=== PATIENT | male | born 1930 | race Caucasian/White ===

== ENCOUNTER → 2018-01-12 | Outpatient (CLI) | payer OTHER ==
[~2018-01-12] MED LIST: ACET-1256 PO; ASPI81TA28 PO; ATEN-173 PO; ATOR-26 PO; CALC0.25 PO; CHOL100010 PO; CLR10 PO; DOCU100C31 PO; FLNIN NAE; FLV400 PO; FRS/40 PO; GLUC1CAP35 PO; KETO2SHA5 TOP; LVQ750 PO; OMEG10007 PO; PRT40 PO; TRAM-10 PO
--- NOTE | 2018-01-12 11:43 | DIAGNOSTIC IMAGING REPORT ---
RIGHT KNEE 4 VIEWS; LEFT KNEE 4 VIEWS CLINICAL HISTORY: Chronic bilateral knee pain. COMPARISON STUDY: Progressive the knees dated 10/06/2012. FINDINGS: AP views of both knees, crosstable lateral views of both knees, a tunnel view of both knees, and a sunrise view of both knees are obtained. The skeletal structures are osteopenic. No fracture is identified. Varus deformity is noted in both knees. Right knee: There is advanced tricompartmental degenerative joint space narrowing, greatest in the medial and patellofemoral compartments. Chondrocalcinosis is identified in the lateral compartment. There are large marginal osteophytes as well as patellar enthesophytes. Degenerative sclerosis is noted along the weightbearing surface in the medial compartment. No osteochondral defect is suggested on the tunnel view. No large joint effusion is identified. Mild soft tissue swelling is present around the knee. Surgical clips are seen in the distal thigh and there is advanced atherosclerotic calcification of the popliteal artery. Left knee: There is advanced tricompartmental degenerative joint space narrowing in the left knee, greatest in the medial and patellofemoral compartments. There is near complete loss of the medial joint space with bony sclerosis and subchondral cyst formation. No osteochondral defect is suggested on the tunnel view. There is no large joint effusion. Mild soft tissue swelling seen around the knee. Advanced atherosclerotic calcification is noted in the popliteal artery. IMPRESSION: 1. No acute bony abnormality is identified in either knee. 2. Osteopenia, varus deformity, and advanced degenerative change as detailed above. Electronically signed by: Bobby Cervantes M.D. 01/12/2018 11:41 AM Dictated Date/Time: 01/12/2018 11:37 AM
== END | disposition home or self-care (01) ==
LOC: C.RDSM 10:31
PROVIDERS: ATTEND Internal Medicine
DX: M25.561 Pain in right knee (principal); M25.562 Pain in left knee

== ENCOUNTER 2019-08-07 15:10 | Inpatient (IN) ==
--- OUTSIDE RECORDS SUMMARY | 2019-08-07 15:13 | External Medical Summary | Continuity of Care Document ---
:1930 Author Name [place] Lynn, Provider Address Unavailable Unavailable , Care Team Providers Name Role Phone Unavailable Unavailable Unavailable MIKE KENNEY Bairon Unavailable Unavailable Unavailable Unavailable Unavailable Problems Routine history and physical examination of adult (V70.0) (Z 00.00) Chronic kidney disease, stage III (moderate) (585.3) (N18.3) PAD (peripheral artery disease) (443.9) (I73.9) Hyponatremia (276.1) (E87.1) Hypertension (401.9) (I10) Vasovagal syncope (780.2) (R55) Cough (786.2) (R05) Coronary artery disease (414.00) (I25.10) Peripheral vascular disease (443.9) (I73.9) Abnormal finding on lung imaging (793.19) (R91.8) Hyperkalemia (276.7) (E87.5) Asthma (493.90) (J45.909) Acute bronchitis (466.0) (J20.9) Pulmonary Fibrosis (515) Allergies and Adverse Reactions Niaspan TBCR (Allergy) Reaction: Rash Medications Tessalon Perles 100 MG Oral Capsule; ERMA E 1-2 CAPSULES three times a day as needed for cough , M.D. Refills: 0 amLODIPine Besylate 10 MG Oral Tablet; TAKE 1/2 TABLET DAILY . , M.D. Refills: 0 Furosemide 40 MG Oral Tablet; TAKE 1 TABLET DAILY. , M.D. Refills: 0 Folic Acid 400 MCG Oral Tablet; TAKE 1 TABLET DAILY DIREC HANNAH. , M.D. Refills: 0 Vitamin D 1000 UNIT TABS; TAKE 1 TABLET DAILY. , M.D. Refills: 0 Aspirin 81 MG TABS; TAKE 1 TABLET DAILY. , M.D. Refills: 0 Atenolol 25 MG Oral Tablet; TAKE 1 TABLET DAILY. , M.D. Refills: 0 Lipitor 40 MG Oral Tablet; TAKE 2 TABLET Daily , M.D. Refills: 0 Vitamin B Complex TABS , M.D. Refills: 0 Procedures History of CABG Status: Completed History of Carotid Thromboendarterectomy Status: Completed History of Cath Placement Of Stent 1 Sta tus: Completed Immunizations Immunizations not documented Family History Unknown Family Member Family history of Diabetes Mellitus (V18.0) Status: Active Comments: Family History Family history of Hypertension (V17.49) Status: Active Comments: Family History Family history of Pure Hypercholesterolemia Status: Active Comments: Family History Family history of Stroke Syndrome (V17.1) Status: Active Comments: Family History Family history of Prostate Cancer (V16.42) Status: Active Comments: Family History Social History - Smoking Status Never smoker Plan of Treatment Planned Observations Planned Goals not documented Results No Known Results Results not documented
[2019-08-07] MEDS ORDERED: SODIUM CHLORIDE 0.9% 1000ML 1,000 ML IV SCH (15:30)
[2019-08-07] MEDS ORDERED: PIPERACILL/TAZOBAC CONSULT ACTIVE PRN ×2 (15:49→20:15)
[2019-08-07] MEDS ORDERED: SODIUM CHLORIDE 0.9% 1000ML 1,000 ML IV ONE (15:49)
[2019-08-07] MEDS ORDERED: VANCOMYCIN CONSULT ACTIVE PRN (15:49)
[2019-08-07] MEDS ORDERED: VANCOMYCIN HCL 1,750 MG in SODIUM CHLORIDE 0.9% 500 ML IV ONE (15:49)
[2019-08-07] MEDS ORDERED: PIPERACILLIN/TAZOBACTAM 4.5 GM/120 ML BAG IV ONE (15:49)
[2019-08-07 15:54] LABS: Hematocrit (blood only) 32.7 % (42-52); Hemoglobin 10.6 g/dL (14.0-18.0); Immature Granulocytes # (auto) 0.07 K/uL (0.00-0.02); Immature Granulocytes % (auto) 0.6 %; Lymphocytes # (auto) 1.27 K/uL (1.2-3.4); Lymphocytes % (auto) 10.8 %; Mean Corpuscular Hemoglobin 31.3 pg (25-34); Mean Corpuscular Hgb Conc 32.4 g/dL (32-36); Mean Corpuscular Volume 96.5 fL (80-100); Mean Platelet Volume 10.1 fL (7.4-10.4); Monocytes # (auto) 0.76 K/uL (0.11-0.59); Monocytes % (auto) 6.4 %; Neutrophils % (auto) 82.2 %; Platelet Count 208 K/uL (130-400); Red Blood Count 3.39 M/uL (4.7-6.1)
[2019-08-07 16:11] LABS: Albumin Level 2.5 gm/dl (3.4-5.0); BUN Creatinine Ratio 24.4 (10-20); Calcium 8.1 mg/dl (8.5-10.1); Creatinine Clr Calc Pharmacy 18.1 ml/min; Est GFR (African American) 22.5; Est GFR (Non-African American) 19.4; Magnesium 2.6 mg/dl (1.8-2.4); Potassium 4.3 mmol/L (3.5-5.1)
--- NOTE | 2019-08-07 16:26 | CT Scan Report ---
HEAD CT NONCONTRAST CT DOSE: 1722.58 mGy.cm HISTORY: fall TECHNIQUE: Multiaxial CT images of the head were performed without the use of intravenous contrast. A utomated exposure control was utilized for this study. A dose lowering technique was utilized adheri ng to the principles of ALARA. Comparison: None. Findings: Fluid level within the right maxillary sinus. Mild mucosal thickening within the ethmoid ai r cells. The mastoid air cells are clear. The calvarium and skull base are intact. There is no mass, hematoma, midline shift, acute infarct. White matter hypodensity is nonspecific but suggestive of tatyana rovascular ischemic change. The ventricles and sulci demonstrate mild age-related involutional change s. 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 Impression: No acute intracranial abnormality. Atrophy and microvascular ischemic changes. Acute right maxillary sinusitis. Electronically signed by: Nemesio Huang M.D. 08/07/2019 4:25 PM
[2019-08-07 16:35] LABS: Albumin Globulin Ratio 0.9 (0.9-2); Bilirubin,Total 0.7 mg/dl (0.2-1); Globulin 2.7 gm/dl (2.5-4.0); Thyroid Stimulating Hormone 3.73 uIu/ml (0.300-4.500); Total Protein 5.2 gm/dl (6.4-8.2); Troponin I 0.104 ng/ml (0-0.045)
--- NOTE | 2019-08-07 16:40 | CT Scan Report ---
ABDOMEN AND PELVIS CT WITHOUT CONTRAST CT DOSE: HISTORY: Generalized abd pain, sepsis TECHNIQUE: Multiaxial CT images of the abdomen and pelvis were performed without contrast. A dose lo wering technique was utilized adhering to the principles of ALARA. COMPARISON STUDY: Renal ultrasound 05/23/2009. FINDINGS: Poststernotomy changes. Bibasilar linear densities favor subsegmental atelectasis. No pneum operitoneum. No pneumatosis. No suspicious lytic are blastic osseous lesions. The unenhanced gallblad jerrod, spleen, adrenal glands, and pancreas are unremarkable. Bilateral renal hypodense lesions are inc ompletely characterized on this noncontrast study but favor cysts. No hydronephrosis. Calcified plaqu e within the normal caliber abdominal aorta. No retroperitoneal lymphadenopathy. A few calcified gran ulomas within the right hepatic lobe. The bladder is unremarkable. Suboptimal evaluation for bowel pa thology due to the lack of intravenous and oral contrast. However, there is no definite bowel wall th ickening or obstruction. A few colonic diverticula. No evidence for diverticulitis. Normal appendix. There is a left rectus sheath hematoma extending along the entire length of the left rectus sheath an d measuring up to 8.2 x 3.8 cm in thickness. There is also small amount of extraperitoneal hemorrhage within the lower anterior abdomen. Left subcutaneous edema is noted. IMPRESSION: 1. A large left rectus sheath hematoma as described above. 2. There is also small amount of hemorrhage extending into the extraperitoneal space within the lower anterior abdomen. 3. Additional findings as described above. Electronically signed by: Nemesio Huang M.D. 08/07/2019 4:38 PM
--- NOTE | 2019-08-07 16:58 | History & Physical Report ---
Date of Service August 07, 2019 Assessment & Plan (1) Rectus sheath hematoma: Patient status post 2 falls earlier today at home Patient also with increased cough over the last week secondary to bronchitis Not on anticoagulation or antiplatelet agents at home with the exception of aspirin 81 mg p.o. daily Hemoglobin is currently stable above 10 We will check repeat hemoglobin and hematocrit every 6 hours Type and cross for 2 units of packed red blood cells but hold Control cough with Tessalon Perles 100 mg scheduled every 8 hours (2) Bronchitis: recently admitted with community-acquired pneumonia treated successfully with Levaquin Patient does not have any infiltrate or consolidation on chest x-ray or at the bases of his CT abdomen pelvis We will treat with Zosyn for now * We will also add steroids * Scheduled bronchodilators * Follow SaO2 to maintain above 90 Follow serial labs Currently oxygenating well on room air Repeat chest x-ray in the morning History of aspiration per patient's Will get a swallow study tomorrow with speech-language pathology. Clear liquid diet tonight (3) Elevated troponin: This may be from cough No EKG changes Due to patient's extensive CAD history, will ask cardiology to see and evaluate Check serial enzymes Repeat EKG in the morning Echocardiogram not ordered at this time. Will defer to cardiology No reports of chest pain from patient (4) Acute renal failure superimposed on chronic kidney disease: Patient with stage IV chronic kidney disease * Baseline creatinine 2.0-2.1 * Current creatinine 2.78 Will gently hydrate with normal saline solution at 75 mL/h Check serial labs in the morning Avoid renally toxic antibiotics and other medications Follow urine output (5) ASCVD (arteriosclerotic cardiovascular disease): History of four-vessel CABG in the past Patient then underwent PCI with drug-eluting stent to the circumflex Patient then underwent a second PCI at a later date with drug-eluting stent to the RCA Patient continues on beta-siria, atorvastatin, and aspirin No chest pain or EKG changes this admission Cardiology consulted (6) Sinusitis: Incidental finding on CT head secondary to fall Patient currently being treated with Zosyn Continue to follow (7) DVT prophylaxis: SCDs No chemical prophylaxis at this time secondary to rectus sheath hematoma Please see Dr. Castillo's addendum for further recommendations. History of Present Illness Attending: Dr. Castillo This is an 89-year-old male with a history of CAD status post CABG x4 and PCI with drug-eluting stents to the RCA and the circumflex on 2 separate procedures. Also with hyperlipidemia, hypertension, chronic kidney disease with a baseline creatinine of 2-2.1. Patient presented to the weekend clinic last week and was seen on Thursday and en ceftriaxone IM. He then reported again on Thursday for worsening shortness of breath and cough and was given an additional injection of ceftriaxone IM and discharged on Cefzil for bronchitis versus pneumonia. The patient's was an inpatient for a week here at the hospital for pneumonia and was successfully treated with Levaquin. The patient is reside with her daughter Rylee Albarado. Patient is extremely hard of hearing so most of the history is provided by the daughter. The daughter reports that he has had a progressive cough throughout the week. Initially when the presented to the outpatient clinic his SaO2 was 90%. After treatment, the patient began to improve with his SaO2 which went as high as 94 at home. However, he continued to have increased cough with yellow/green spu xander. The patient never had any chest pain or tightness. He did have some vomiting associated with increased sputum which he is unable to clear. On Thursday he had severe diarrhea. That then improved on and Thursday to be scant amounts of diarrhea. He then developed severe diarrhea again yesterday which was described by the daughter as "a blowout". This morning, the patient was extremely weak and went out to his chair and when he was getting in the chair he fell. The family reports they were able to get him into the chair but then he tried to get out himself and fell again. Primary Care Provider: July Collazo MD Allergies Allergy/AdvReac Type Severity Reaction Status Date / Time niacin Allergy Unknown UNKNOWN Verified 08/07/19 16:55 Home Medications Home Medications Medication Instructions Recorded Confirmed Type acetaminophen [Tylenol Extra 500 mg PO BIDM PRN 08/07/19 08/07/19 History Strength] allopurinol [Zyloprim] 300 mg PO QAM 08/07/19 08/07/19 History aspirin 81 mg PO QAM 08/07/19 08/07/19 History atorvastatin [Lipitor] 80 mg PO QAM 08/07/19 08/07/19 History benzonatate [Tessalon Perles] 100 mg PO TID PRN 08/07/19 08/07/19 History budesonide [Pulmicort] 0.5 mg INHALATION BID PRN 08/07/19 08/07/19 History cefprozil 250 mg PO Q12H 08/07/19 08/07/19 History clobetasol [Cormax] 1 applic TOPICAL UD 08/07/19 08/07/19 History escitalopram oxalate [Lexapro] 5 mg PO QAM 08/07/19 08/07/19 History fluticasone propionate 2 spray INTRANASAL DAILY 08/07/19 08/07/19 History folic acid 400 mcg PO DAILY 08/07/19 08/07/19 History furosemide [Lasix] 20 mg PO QAM 08/07/19 08/07/19 History levalbuterol HCl [Xopenex] 1.25 mg INHALATION Q4H PRN 08/07/19 08/07/19 History loratadine [Claritin] 10 mg PO DAILY 08/07/19 08/07/19 History metoprolol succinate [Toprol XL] 50 mg PO QAM 08/07/19 08/07/19 History pantoprazole [Protonix] 40 mg PO BID 08/07/19 08/07/19 History prednisone 5 mg PO QAM 08/07/19 08/07/19 History prednisone See Rx Instructions .ROUTE .COMPLEX 08/07/19 08/07/19 History ranitidine HCl [Zantac] 150 mg PO BID 08/07/19 08/07/19 History terazosin 2 mg PO QAM 08/07/19 08/07/19 History tramadol [Ultram] 50 mg PO TID PRN 08/07/19 08/07/19 History vitamin B complex [B-Complex] 1 tab PO DAILY 08/07/19 08/07/19 History Past Med/Surg History Medical History Sepsis (Acute) Aspiration pneumonia (Chronic) CAD, multiple vessel Chronic kidney disease, stage IV (severe) Dyslipidemia GERD without esophagitis History of melanoma in situ Hyperparathyroidism, secondary renal Hypertension Surgical History H/O percutaneous transluminal coronary angioplasty History of appendectomy S/P CABG x 4 Family History Mother , Age 74 Diabetes Heart disease Stroke Father , Age 72 Prostate cancer Sister Arthritis of both knees Arthritis of both feet Heart disease Sister No problems noted. Sister No problems noted. Brother No problems noted. Social History Preferred Language: Arabic Communication Ability: Effective Beliefs That Will Affect Care: Druze Druze Beliefs: BAPTISM Current Living Situation: Family Current Living Situation Comment: LIVES WITH DAUGHTERS Other Information That Helps Us Care for You: No Feels Safe at Home: Yes Safety Concerns: Feels Safe At This Time Smoking Status: Never smoker Hx Alcohol Use: Yes Alcohol type: beer Hx Substance Use: No Review of Systems Review of Systems: All systems reviewed & are unremarkable except as noted in HPI & below Physical Exam Physical Exam: GENERAL : No acute distress. Hard of hearing EYES: No icterus, gaze conjugate. Pupils equal round and reactive to light NOSE: No evidence of epistaxis. MOUTH: No lesions or candidiasis. Mucosa moist. Tongue midline. NECK: Supple. No JVD. No carotid bruits LUNGS: Bronchospasm on expiratory phase more pronounced to anterior zones. Decreased breath sounds at the left base. No specific rales or rhonchi appreciated HEART: Regular, rate controlled. No appreciation of murmurs gallops or rubs ABDOMEN: Soft, NT, ND, BS Present EXTREMITIES: No LE edema, pedal pulses intact. NEURO: A&OX3. No focal deficits on examination Results & Data Vital Signs (Past 12 Hours) Vital Signs Temp Pulse Resp BP Pulse Ox 08/07/19 16:31 67 17 97 08/07/19 16:30 68 15 139/64 96 08/07/19 16:18 72 23 123/63 95 08/07/19 15:30 64 14 93 08/07/19 15:26 71 13 94 08/07/19 15:24 96 08/07/19 15:17 36.8 C 78 20 100/63 96 08/07/19 15:13 74 17 100/63 95 Laboratory Results 08/07/19 15:44 08/07/19 15:44 Diagnostic Findings ABDOMEN AND PELVIS CT WITHOUT CONTRAST CT DOSE: HISTORY: Generalized abd pain, sepsis TECHNIQUE: Multiaxial CT images of the abdomen and pelvis were performed without contrast. A dose lowering technique was utilized adhering to the principles of ALARA. COMPARISON STUDY: Renal ultrasound 05/23/2009. FINDINGS: Poststernotomy changes. Bibasilar linear densities favor subsegmental atelectasis. No pneumoperitoneum. No pneumatosis. No suspicious lytic are blastic osseous lesions. The unenhanced gallbladder, spleen, adrenal glands, and pancreas are unremarkable. Bilateral renal hypodense lesions are incompletely ch aracterized on this noncontrast study but favor cysts. No hydronephrosis. Calcified plaque within the normal caliber abdominal aorta. No retroperitoneal lymphadenopathy. A few calcified granulomas within the right hepatic lobe. The bladder is unremarkable. Suboptimal evaluation for bowel pathology due to the lack of intravenous and oral contrast. However, there is no definite bowel wall thickening or obstruction. A few colonic diverticula. No evidence for diverticulitis. Normal appendix. There is a left rectus sheath hematoma extending along the entire length of the left rectus sheath and measuring up to 8.2 x 3.8 cm in thickness. There is also small amount of extraperitoneal he morrhage within the lower anterior abdomen. Left subcutaneous edema is noted. IMPRESSION: 1. A large left rectus sheath hematoma as described above. 2. There is also small amount of hemorrhage extending into the extraperitoneal space within the lower anterior abdomen. 3. Additional findings as described above. Electronically signed by: Nemesio Huang M.D. 08/07/2019 4:[address]AST CT DOSE: 1722.58 mGy.cm HISTORY: fall TECHNIQUE: Multiaxial CT images of the head were performed without the use of intravenous contrast. Automated exposure control was utilized for this study. A dose lowering technique was utilized adhering to the principles of ALARA. Comparison: None. Findings: Fluid level within the right maxillary sinus. Mild mucosal thickening within the ethmoid air cells. The mastoid air cells are clear. The calvarium and skull base are intact. There is no mass, hematoma, midline shift, acute infarct. White matter hypodensity is nonspecific but suggestive of microvascular ischemic change. The ventricles and sulci demonstrate mild age-related involutional changes. 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 Impression: No acute intracranial abnormality. Atrophy and microvascular ischemic changes. Acute right maxillary sinusitis. Electronically signed by: Nemesio Huang M.D. 08/07/2019 4:25 PM Code Status & VTE Plan Code Status DNR/DNI VTE Prophylaxis Plan VTE Prophylaxis will be ordered: Yes Supervising Physician Co-Signing Physician Notes HISTORY: Record reviewed. Patient interviewed and examined. Care coordinated with Bobby Sher PA-C. Please refer to his documentation for patient's history. Briefly, 89-year-old male with history of ischemic heart disease (status post CABG and PCI's with drug-eluting stents) and other problems. Seen in clinic for a congested cough about 1 week prior to admission. Treated with IV ceftriaxone on 2 consecutive days and given prescription for cefprozil to take orally. Despite those efforts, his cough has worsened. He is tired and more somnolent than usual. Has suspected history of dementia, but more confused than baseline. Several episodes of diarrhea without gross blood. No fever at home. EXAM: General- no distress ENT- hard of hearing Lungs- coughing, scattered rhonchi, diffuse wheezing; no respiratory distress Cardiovascular- RRR; no murmur or gallop appreciated; no JVD; no pretibial edema Abdomen- + bowel sounds, soft, mild tenderness left anterior abdominal wall Extremities- no cyanosis; no calf tenderness Neuro- somewhat somnolent, oriented to person, hospital (but not correct city), the week and year (but not exact date); unable to state the president's name; n ot interested in naming the months of the year backwards; +/- masked facies; mild cogwheel rigidity of upper extremities Skin- warm & dry DATA: Hemoglobin 10.6, white count 11,800, platelet count 208,000. PT 10.9, INR 1.1, PTT 22.3. Sodium 140, potassium 4.3, chloride 105, CO2 29, BUN 68, creatinine 2.78, glucose 186, calcium 8.1, magnesium 2.6. Total bilirubin 0.7, AST 40, ALT 28, alkaline phosphatase 57. Troponin I = 0.104. Serum lactate 1.68. TSH = 3.73. Other lab studies as noted. Chest x-ray reviewed reviewed by the undersigned and formally interpreted by Radiology. Postsurgical changes, bibasilar densities consistent with atelectasis, elevated left hemidiaphragm. CT of head showed atrophy, small vessel ischemic changes, acute right maxillary sinusitis. CT of abdomen pelvis demonstrated left rectus sheath hematoma measuring 8 x 4 cm. Bibasilar lung densities consistent with atelectasis noted. EKG performed at 1515 reviewed and demonstrated normal sinus rhythm at 70/ minute, left axis deviation, intraventricular conduction delay, no acute ST or T wave abnormalities. ASSESSMENT AND PLAN: Persistent cough for about 1 week despite outpatient therapy with ceftriaxone and cefprozil. recently treated for pneumonia. Chest x-ray shows bibasilar atelectasis, but no apparent infiltrates. CT of head demonstrates acute right maxillary sinusitis. Appears to have sinobronchitis. Treat with intravenous piperacillin/tazobactam, steroids, bronchodilators. Family reports that patient appears to aspirate when he eats or drinks. Clear liquid diet. Aspiration precautions. TELECASTING TECHNICIAN consult for bedside swallowing evaluation. History of coronary artery disease, status post CABG and PCI with drug-eluting stents. No apparent anginal symptoms. Serum troponin slightly elevated, probably nonspecific elevation versus demand ischemia. No acute EKG changes. Continue aspirin with caution in light of rectus sheath hematoma. Continue metoprolol and statin. CT of abdomen demonstrates left rectus sheath hematoma. Suspect that rectus sheath hematoma secondary to severe coughing from si nobronchitis. Patient is on aspirin, but no other antiplatelet drugs and no anticoagulants. Coagulation testing and platelet count normal. Probably best to continue low-dose aspirin if possible in light of coronary disease and drug-eluting stents. Hemoglobin 10.6. Hemodynamically stable. Monitor H&H. Cough suppressants. Usually no need for surgical or interventional radiology intervention unless hematoma worsens and patient becomes hemodynamically unstable. CKD with elevated creatinine. Monitor. History of cognitive decline over past several months. Family is concerned. Patient has some parkinsonian symptoms-masked facies, tremor, cogwheel rigidity, shuffling gait. Outpatient evaluation for dementia and possibility of Parkinson's disease recommended. Patient has had several episodes of diarrhea. Check stools for C. difficile. Family is concerned about cognitive and functional decline. Will request PT/OT evaluations and Case Management consultation. Please refer to YULISA Sher's documentation for discussion of other issues. (1) Sinusitis Chronicity: unspecified Sinusitis location: unspecified location Qualified Code(s): J32.9 - Chronic sinusitis, unspecified (2) Rectus sheath hematoma Encounter type: initial encounter Qualified Code(s): S30.1XXA - Contusion of abdominal wall, initial encounter
--- NOTE | 2019-08-07 17:02 | XRay Report ---
XR chest 1V portable HISTORY: weakness COMPARISON: Chest 10/15/2016. FINDINGS: There are low lung volumes. Poststernotomy changes. The heart is stable in size. Bibasilar linear densities favor subsegmental atelectasis. No pleural effusions. No pneumothorax. No evidence f or pulmonary edema. IMPRESSION: No significant change compared to the prior study. No acute process. Low lung volumes with bibasilar subsegmental atelectasis persists. Electronically signed by: Nemesio Huang M.D. 08/07/2019 5:01 PM
[2019-08-07 17:10] LABS: INR 1.1 (0.9-1.1); Partial Thromboplastin Ratio 0.8; Partial Thromboplastin Time 22.3 Seconds (21.0-31.0); Prothrombin Time 10.9 Seconds (9.0-12.0)
[2019-08-07 18:24] LABS: Influenza A virus by PCR Neg for Influ A (Neg); Influenza B virus by PCR Neg for Influ B (Neg)
[2019-08-07] MEDS ORDERED: LEVALBUTEROL 1.25MG/0.5ML NEB INH SCH (20:15)
[2019-08-07] MEDS ORDERED: ONDANSETRON INJ 2 MG/ML 2 ML VIAL IV PRN (20:15)
[2019-08-07] MEDS ORDERED: LEVALBUTEROL HCL 1.25 MG/3 ML NEB INH PRN (20:15)
[2019-08-07] MEDS ORDERED: XOPENEX/ATROVENT 1.25mg/0.5MG NEB COMBO NEB SCH (20:15)
[2019-08-07] MEDS ORDERED: SODIUM CHLORIDE 0.9% 250 ML IV PRN (20:15)
[2019-08-07] MEDS ORDERED: ACETAMINOPHEN 325 MG TAB PO PRN (20:15)
[2019-08-07] MEDS ORDERED: BUDESONIDE 0.5 MG/2 ML VIAL (PULMICORT) INH PRN (20:15)
[2019-08-07] MEDS ORDERED: ALUMINUM/MAGNESIUM SUSP 30 ML UDC PO PRN (20:15)
[2019-08-07 21:16] LABS: Appearance Urine Clear (Clear); Bilirubin Urine Negative (Negative); Blood Urine Negative (Negative); Color Urine Yellow; Glucose Urine UA Negative (Negative); Ketones Urine Negative (Negative); Leukocyte Esterase Urine Negative (Negative); Nitrite Urine Negative (Negative); Protein Urine Trace (Negative); Urobilinogen Urine Negative (Negative)
[2019-08-07 21:26] LABS: Bacteria Urine Negative (Negative); Epithelial Cell Urine 0-5 /lpf (0-5); RBC Urine 0-4 /hpf (0-4); WBC Urine 0-5 /hpf (0-5)
[2019-08-07] MEDS: SODIUM CHLORIDE 0.9% 1000ML 1,000 ML IV SCH (21:34)
[2019-08-07] MEDS: BENZONATATE 100 MG CAPSULE PO SCH (21:35)
[2019-08-07] MEDS: PANTOprazole 40 MG TAB PO SCH (21:38)
[2019-08-07] MEDS ORDERED: PIPERACILLIN/TAZOBACTAM 3.375 GM in DEXTROSE 5% 100 ML IV SCH (22:00)
[2019-08-07 22:09] LABS: Hematocrit (blood only) 30.7 % (42-52); Hemoglobin 10.2 g/dL (14.0-18.0)
--- NOTE | 2019-08-07 22:27 | Emergency Department Note ---
Entered by Yennifer Rivera acting as a scribe for Eran Dang MD ED Provider Note CHIEF COMPLAINT: Diarrhea. HISTORY OF PRESENT ILLNESS: The patient is a 89 year old male who presents to the Emergency Room with complaints of persistent diarrhea. The patients family reports that the patient was diagnosed with bronchitis on Thursday and was prescribed Rocephin. They report that he followed up the next day and was prescribed Cefprozil and Prednisone. They state that the patient has been weak, fatigued, and has been experiencing diarrhea for the past 3 days. They state that the patients cough has worsened. They note that the patient has had 5 episodes of diarrhea daily. The patient states that he has chest pain and abdominal pain. The family reports that the patient has a history of aspirated pneumonia and sepsis. They deny any history of C diff. Per EMS, the patients blood pressure was 93/50. Pt denies LOC, headache, fevers, chills, diaphoresis, visual changes, neck pain, breathing difficulties, nausea, vomiting, back pain, melena, hematochezia, urinary symptoms, numbness, weakness, lymphadenopathy, rash, or other complaints. REVIEW OF SYSTEMS: See HPI for pertinent positives and negatives. A total of ten systems were reviewed and were otherwise negative. PMHx/PSHx: Aspiration pneumonia and Sepsis. SOCIAL HISTORY: Patient lives at home. PHYSICAL EXAM: GENERAL: Awake, alert, tired-appearing, in no distress HENT: Normocephalic, atraumatic. Oropharynx unremarkable. EYES: PERRL. Normal conjunctiva. Sclera non-icteric. NECK: Inspection normal. Non-tender. Supple. No nuchal rigidity. FROM. No masses. RESPIRATORY: Coarse breath sounds. Productive cough. No wheezes. No rales. Normal respiratory effort. CARDIAC: Normal rate. Normal rhythm. No murmurs. No rubs. Extremities warm and well perfused. Pulses equal. No JVD. GI: Soft, non-distended. Mild lower abdominal tenderness to palpation. No rebound or guarding. No masses. RECTAL: Deferred. MUSCULOSKELETAL: Atraumatic. Chest examination reveals no tenderness. The back is symmetrical on inspection without obvious abnormality. There is no CVA tenderness to palpation. No joint edema. LOWER EXTREMITIES: Calves are equal size bilaterally and non-tender. No edema. No discoloration. NEURO: Normal sensorium. No sensory or motor deficits noted. SKIN: No rash or jaundice noted. EMERGENCY DEPARTMENT COURSE: 1547: Past medical records reviewed. The patient was evaluated in room A11B, and a complete history and physical examination were performed. 1645: I reviewed the patient's case with Dr. Josi Potts. He will evaluate the patient for further management. MEDICAL DECISION MAKING: A11B Prior records/ancillary studies reviewed. Nursing notes reviewed and agree them. Additional history obtained from family. The patient's history was concerning for weakness, cough and diarrhea. Differential diagnosis: Etiologies such as metabolic, infection, hypo/hyperglycemia, electrolyte abnormalities, cardiac sources, intracerebral event, toxicologic, neurologic, pneumonia, bronchitis, C. difficile infection, infectious diarrhea, viral process, as well as others were entertained. Physical examination: As above. Mild right-sided abdominal tenderness. ER treatment provided: IV Lock Saline hydration Empiric IV Zosyn Empiric IV vancomycin On reassessment the patient was stable. Diagnostics interpretation by me: ECG: Negative for acute ischemic process. The labs revealed a mild leukocytosis on CBC. Chemistry panel revealed a stable but elevated creatinine at 2.7. Mild elevation of AST and glucose. The patient does have a mild anemia. His troponin is elevated at 0.104. Lactate negative. Imaging studies: Chest x-ray did not reveal any obvious acute process. CT imaging of the abdomen pelvis revealed a right-sided rectus hematoma. The patient is only on aspirin. He is not taking anticoagulation. Head CT was negative for acute intracranial process however the patient does have right-sided acute maxillary sinusitis. The patient will need to be admitted in the hospital for further management. C. difficile testing pending still. I gave my usual and customary discussion regarding this issue. Consultation: A consultation was placed with the hospitalist. The case was discussed and diagnostics were reviewed. The patient was evaluated in the ER for further treatment. IMPRESSION: Elevated troponin, sinusitis, leukocytosis, productive cough, diarrhea, rectus sheath hematoma. PLAN: Admitted. The scribe's documentation has been prepared under my direction and personally reviewed by me in its entirety. I confirm that the note above accurately reflects all work, treatment, procedures, and medical decision making performed by me. Impression & Plan Elevated troponin, Sinusitis, Leukocytosis, Productive cough, Diarrhea, Rectus sheath hematoma Past Med/Surg History Medical History Sepsis (Acute) Aspiration pneumonia (Chronic) CAD, multiple vessel Chronic kidney disease, stage IV (severe) Dyslipidemia GERD without esophagitis History of melanoma in situ Hyperparathyroidism, secondary renal Hypertension Surgical History H/O percutaneous transluminal coronary angioplasty History of appendectomy S/P CABG x 4 Family History Mother , Age 74 Diabetes Heart disease Stroke Father , Age 72 Prostate cancer Sister Arthritis of both knees Arthritis of both feet Heart disease Sister No problems noted. Sister No problems noted. Brother No problems noted. Social History Preferred Language: [place] Communication Ability: Effective Beliefs That Will Affect Care: Synagogue Synagogue Beliefs: PENTECOSTAL Current Living Situation: Family Current Living Situation Comment: LIVES WITH DAUGHTERS Other Information That Helps Us Care for You: No Feels Safe at Home: Yes Safety Concerns: Feels Safe At This Time Smoking Status: Never smoker Hx Alcohol Use: Yes Alcohol type: beer Hx Substance Use: No Results & Data Vital Signs Vital Signs - 24 hr 08/07/19 15:13 08/07/19 15:17 08/07/19 15:24 Temperature 36.8 C Temperature Source Oral Sepsis Recent Fever Within 48 Hours No Sepsis New/Unexplained Change in Mental Status No Sepsis Action Taken by Nursing No Action Required Pulse Rate 74 78 Pulse Rate from SpO2 Sensor 74 Respiratory Rate 17 20 Respiratory Effort / Characteristics Non-Labored Spontaneous Respiratory Depth Normal Respiratory Pattern Regular Blood Pressure 100/63 100/63 Blood Pressure Mean 75 75 Blood Pressure Position Sitting Pulse Oximetry 95 96 96 Oxygen Delivery Method Room Air Room Air 08/07/19 15:26 08/07/19 15:30 08/07/19 16:18 Temperature Temperature Source Sepsis Recent Fever Within 48 Hours Sepsis New/Unexplained Change in Mental Status Sepsis Action Taken by Nursing Pulse Rate 71 64 72 Pulse Rate from SpO2 Sensor 70 67 71 Respiratory Rate 13 14 23 Respiratory Effort / Characteristics Respiratory Depth Respiratory Pattern Blood Pressure 123/63 Blood Pressure Mean 83 Blood Pressure Position Pulse Oximetry 94 93 95 Oxygen Delivery Method 08/07/19 16:30 08/07/19 16:31 08/07/19 17:00 Temperature Temperature Source Sepsis Recent Fever Within 48 Hours Sepsis New/Unexplained Change in Mental Status Sepsis Action Taken by Nursing Pulse Rate 68 67 66 Pulse Rate from SpO2 Sensor 68 67 66 Respiratory Rate 15 17 16 Respiratory Effort / Characteristics Respiratory Depth Respiratory Pattern Blood Pressure 139/64 128/62 Blood Pressure Mean 89 84 Blood Pressure Position Pulse Oximetry 96 97 96 Oxygen Delivery Method 08/07/19 17:30 08/07/19 18:00 08/07/19 18:01 Temperature Temperature Source Sepsis Recent Fever Within 48 Hours Sepsis New/Unexplained Change in Mental Status Sepsis Action Taken by Nursing Pulse Rate 64 58 L 64 Pulse Rate from SpO2 Sensor 64 67 Respiratory Rate 16 17 16 Respiratory Effort / Characteristics Respiratory Depth Respiratory Pattern Blood Pressure 111/58 L 95/59 L Blood Pressure Mean 75 71 Blood Pressure Position Pulse Oximetry 97 84 L Oxygen Delivery Method 08/07/19 18:04 08/07/19 18:06 08/07/19 18:30 Temperature Temperature Source Sepsis Recent Fever Within 48 Hours Sepsis New/Unexplained Change in Mental Status Sepsis Action Taken by Nursing Pulse Rate 60 69 66 Pulse Rate from SpO2 Sensor 60 70 66 Respiratory Rate 21 22 16 Respiratory Effort / Characteristics Respiratory Depth Respiratory Pattern Blood Pressure 149/86 H 121/66 130/76 Blood Pressure Mean 107 84 94 Blood Pressure Position Pulse Oximetry 100 97 95 Oxygen Delivery Method Home Medications Current Medication List: was personally reviewed by me Laboratory Data Attestation: I reviewed the patient's lab results. Result diagrams: 08/07/19 21:59 08/07/19 15:44 Lab Results 08/07/19 08/07/19 08/07/19 Range/Units 15:14 15:44 15:44 WBC 11.80 H (4.8-10.8) K/uL RBC 3.39 L (4.7-6.1) M/uL Hgb 10.6 L (14.0-18.0) g/dL Hct 32.7 L (42-52) % MCV 96.5 (80-100) fL MCH 31.3 (25-34) pg MCHC 32.4 (32-36) g/dL RDW Std Deviation 56.0 H (36.4-46.3) fL RDW Coeff of Ted 16.0 H (11.5-14.5) % Plt Count 208 (130-400) K/uL MPV 10.1 (7.4-10.4) fL Immature Gran % (Auto) 0.6 % Neut % (Auto) 82.2 % Lymph % (Auto) 10.8 % [place] % (Auto) 6.4 % Eos % (Auto) 0.0 % Baso % (Auto) 0.0 % Immature Gran # (Auto) 0.07 H (0.00-0.02) K/uL Neut # (Auto) 9.70 H (1.4-6.5) K/uL Lymph # (Auto) 1.27 (1.2-3.4) K/uL [place] # (Auto) 0.76 H (0.11-0.59) K/uL Eos # (Auto) 0.00 (0-0.5) K/uL Baso # (Auto) 0.00 (0-0.2) K/uL PT 10.9 (9.0-12.0) Seconds INR 1.1 (0.9-1.1) APTT 22.3 (21.0-31.0) Seconds PTT Ratio 0.8 Sodium 140 (136-145) mmol/L Potassium 4.3 (3.5-5.1) mmol/L Chloride 105 (98-107) mmol/L Carbon Dioxide 29 (21-32) mmol/L Anion Gap 5.0 (3-11) BUN 68 H (7-18) mg/dl Creatinine 2.78 H (0.6-1.4) mg/dl Est Cr Clr Drug Dosing 18.1 ml/min Est GFR ( Amer) 22.5 Est GFR (Non-Af Amer) 19.4 BUN/Creatinine Ratio 24.4 H (10-20) Glucose 186 H (70-99) mg/dl POC Lactic Acid Curtis (0.90-1.70) mmol/L Calcium 8.1 L (8.5-10.1) mg/dl Magnesium 2.6 H (1.8-2.4) mg/dl Total Bilirubin 0.7 (0.2-1) mg/dl AST 40 H (15-37) U/L ALT 28 (12-78) U/L Alkaline Phosphatase 57 (45-117) U/L Troponin I 0.104 H* (0-0.045) ng/ml Total Protein 5.2 L (6.4-8.2) gm/dl Albumin 2.5 L (3.4-5.0) gm/dl Globulin 2.7 (2.5-4.0) gm/dl Albumin/Globulin Ratio 0.9 (0.9-2) TSH 3.730 (0.300-4.500) uIu/ml Influenza Type A (PCR) (Neg) Influenza Type B (PCR) (Neg) 08/07/19 08/07/19 Range/Units 15:50 17:45 WBC (4.8-10.8) K/uL RBC (4.7-6.1) M/uL Hgb (14.0-18.0) g/dL Hct (42-52) % MCV (80-100) fL MCH (25-34) pg MCHC (32-36) g/dL RDW Std Deviation (36.4-46.3) fL RDW Coeff of Ted (11.5-14.5) % Plt Count (130-400) K/uL MPV (7.4-10.4) fL Immature Gran % (Auto) % Neut % (Auto) % Lymph % (Auto) % [place] % (Auto) % Eos % (Auto) % Baso % (Auto) % Immature Gran # (Auto) (0.00-0.02) K/uL Neut # (Auto) (1.4-6.5) K/uL Lymph # (Auto) (1.2-3.4) K/uL [place] # (Auto) (0.11-0.59) K/uL Eos # (Auto) (0-0.5) K/uL Baso # (Auto) (0-0.2) K/uL PT (9.0-12.0) Seconds INR (0.9-1.1) APTT (21.0-31.0) Seconds PTT Ratio Sodium (136-145) mmol/L Potassium (3.5-5.1) mmol/L Chloride (98-107) mmol/L Carbon Dioxide (21-32) mmol/L Anion Gap (3-11) BUN (7-18) mg/dl Creatinine (0.6-1.4) mg/dl Est Cr Clr Drug Dosing ml/min Est GFR ( Amer) Est GFR (Non-Af Amer) BUN/Creatinine Ratio (10-20) Glucose (70-99) mg/dl POC Lactic Acid Curtis 1.68 (0.90-1.70) mmol/L Calcium (8.5-10.1) mg/dl Magnesium (1.8-2.4) mg/dl Total Bilirubin (0.2-1) mg/dl AST (15-37) U/L ALT (12-78) U/L Alkaline Phosphatase (45-117) U/L Troponin I (0-0.045) ng/ml Total Protein (6.4-8.2) gm/dl Albumin (3.4-5.0) gm/dl Globulin (2.5-4.0) gm/dl Albumin/Globulin Ratio (0.9-2) TSH (0.300-4.500) uIu/ml Influenza Type A (PCR) Neg for Influ A (Neg) Influenza Type B (PCR) Neg for Influ B (Neg) Administered Medications Benzonatate (Tessalon Perle) 100 mg PO TID HOMA Stop: 09/06/19 20:59 Last Admin: 08/07/19 21:35 Dose: 100 mg Documented by: [id number] Sodium Chloride (Nss 1000ml) 1,000 mls @ 80 mls/hr IV .[id number] HOMA Stop: 09/06/19 20:14 Last Admin: 08/07/19 21:34 Dose: 80 mls/hr Documented by: [id number] Pantoprazole Sodium (Protonix) 40 mg PO BID HOMA Stop: 09/06/19 20:59 Last Admin: 08/07/19 21:38 Dose: 40 mg Documented by: [id number] Discontinued Medications Sodium Chloride (Nss 1000ml) 1,000 mls @ 125 mls/hr IV .Q8H HOMA Stop: 08/07/19 23:29 Last Infusion: 08/07/19 20:28 Dose: 0 mls/hr Documented by: [id number] Admin: 08/07/19 17:45 Dose: 125 mls/hr Documented by: [id number] Piperacillin Sod/Tazobactam Sod (Zosyn) 4.5 gm in 120 mls @ 240 mls/hr IV NOW ONE Stop: 08/07/19 16:18 Last Infusion: 08/07/19 18:02 Dose: 0 mls/hr Documented by: [id number] Admin: 08/07/19 16:36 Dose: 240 mls/hr Documented by: [id number] Sodium Chloride (Nss 1000ml) 1,000 mls @ 999 mls/hr IV .Q1H1M ONE Stop: 08/07/19 16:49 Last Infusion: 08/07/19 18:02 Dose: 0 mls/hr Documented by: [id number] Admin: 08/07/19 16:24 Dose: 999 mls/hr Documented by: [id number] Vancomycin HCl 1,750 mg/ (Sodium Chloride) 535 mls @ 200 mls/hr IV NOW ONE Stop: 08/07/19 18:29 Last Infusion: 08/07/19 19:08 Dose: 0 mls/hr Documented by: [id number] Admin: 08/07/19 16:23 Dose: 200 mls/hr Documented by: [id number] Imaging Data Radiologist's Impression: Radiology results as stated below per my review and the radiologist's interpretation: XR chest 1V portable HISTORY: weakness COMPARISON: Chest 10/15/2016. FINDINGS: There are low lung volumes. Poststernotomy changes. The heart is stable in size. Bibasilar linear densities favor subsegmental atelectasis. No pleural effusions. No pneumothorax. No evidence for pulmonary edema. IMPRESSION: No significant change compared to the prior study. No acute process. Low lung volumes with bibasilar subsegmental atelectasis persists. Electronically signed by: Nemesio Huang M.D. 08/07/2019 5:[address] DOSE: 1722.58 mGy.cm HISTORY: fall TECHNIQUE: Multiaxial CT images of the head were performed without the use of intravenous contrast. Automated exposure control was utilized for this study. A dose lowering technique was utilized adhering to the principles of ALARA. Comparison: None. Findings: Fluid level within the right maxillary sinus. Mild mucosal thickening within the ethmoid air cells. The mastoid air cells are clear. The calvarium and skull base are intact. There is no mass, hematoma, midline shift, acute infarct. White matter hypodensity is nonspecific but suggestive of microvascular ischemic change. The ventricles and sulci demonstrate mild age-related involutional changes. 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 Impression: No acute intracranial abnormality. Atrophy and microvascular ischemic changes. Acute right maxillary sinusitis. Electronically signed by: Nemesio Huang M.D. 08/07/2019 4:25 PM A[address]OMEN AND PELVIS CT WITHOUT CONTRAST CT DOSE: HISTORY: Generalized abd pain, sepsis TECHNIQUE: Multiaxial CT images of the abdomen and pelvis were performed without contrast. A dose lowering technique was utilized adhering to the principles of ALARA. COMPARISON STUDY: Renal ultrasound 05/23/2009. FINDINGS: Poststernotomy changes. Bibasilar linear densities favor subsegmental atelectasis. No pneumoperitoneum. No pneumatosis. No suspicious lytic are blastic osseous lesions. The unenhanced gallbladder, spleen, adrenal glands, and pancreas are unremarkable. Bilateral renal hypodense lesions are incompletely characterized on this noncontrast study but favor cysts. No hydronephrosis. Calcified plaque within the normal caliber abdominal aorta. No retroperitoneal lymphadenopathy. A few calcified granulomas within the right hepatic lobe. The bladder is unremarkable. Suboptimal evaluation for bowel pathology due to the lack of intravenous and oral contrast. However, there is no definite bowel wall thickening or obstruction. A few colonic diverticula. No evidence for diverticulitis. Normal appendix. There is a left rectus sheath hematoma extending along the entire length of the left rectus sheath and measuring up to 8.2 x 3.8 cm in thickness. There is also small amount of extraperitoneal hemorrhage within the lower anterior abdomen. Left subcutaneous edema is noted. IMPRESSION: 1. A large left rectus sheath hematoma as described above. 2. There is also small amount of hemorrhage extending into the extraperitoneal space within the lower anterior abdomen. 3. Additional findings as described above. Electronically signed by: Nemesio Huang M.D. 08/07/2019 4:38 PM ECG Data Attestation: I personally reviewed and interpreted this ECG as follows: Indication: abdominal pain Rate (beats per minute): 72 Rhythm: normal sinus Findings: + other (normal QRS); no PAC, no PVC, no ST depression, no ST elevation and no ectopy Blood Pressure Blood Pressure Findings: Normal blood pressure Blood Pressure Disposition: did not require urgent referral Discharge Plan Visit Data *Final* Discharge Date/Time: 08/07/19 19:49 Chief Complaint: Illness Stated Complaint: WEAKNESS, AB PAIN, DIARRHEA ED Provider: Eran Dang Discharge Problem: Elevated troponin, Sinusitis, Leukocytosis, Productive cough, Diarrhea, Rectus sheath hematoma Patient Disposition: Admitted As Inpatient Discharge Instructions Interventions: ED Discharge Assessment Last Done: 08/07/19 19:49 Discharge Problem: Sinusitis Qualifiers: Sinusitis location: unspecified location Chronicity: unspecified Qualified Code(s): J32.9 - Chronic sinusitis, unspecified Leukocytosis Qualifiers: Leukocytosis type: unspecified Qualified Code(s): D72.829 - Elevated white blood cell count, unspecified Diarrhea Qualifiers: Diarrhea type: unspecified type Qualified Code(s): R19.7 - Diarrhea, unspecified Rectus sheath hematoma Qualifiers: Encounter type: initial encounter Qualified Code(s): S30.1XXA - Contusion of abdominal wall, initial encounter The scribe's documentation has been prepared under my direction and personally reviewed by me in its entirety. I confirm that the note above accurately reflects all work, treatment, procedures, and medical decision making performed by me.
[2019-08-08] MEDS: PIPERACILLIN/TAZOBACTAM 3.375 GM in DEXTROSE 5% 100 ML IV SCH ×2 (00:48→11:49)
[2019-08-08] MEDS: LEVALBUTEROL 1.25MG/0.5ML NEB NEB SCH ×4 (01:16→20:06)
[2019-08-08] MEDS: IPRATROPIUM BROMIDE NEB SOLN 0.02% 2.5 ML VIAL INH SCH ×4 (01:16→20:05)
[2019-08-08 06:58] LABS: Hematocrit (blood only) 27.5 % (42-52); Hemoglobin 9.3 g/dL (14.0-18.0)
[2019-08-08] MEDS: SODIUM CHLORIDE 0.9% 1000ML 1,000 ML IV SCH ×2 (08:08→17:49)
[2019-08-08] MEDS: ASPIRIN 81 MG ECTAB PO SCH (08:11)
[2019-08-08] MEDS: TERAZOSIN HCL 1 MG CAP PO SCH (08:11)
[2019-08-08] MEDS: FOLIC ACID 400 MCG TAB PO SCH (08:11)
[2019-08-08] MEDS: VITAMIN B COMPLEX TAB PO SCH (08:11)
[2019-08-08] MEDS: FLUTICASONE PROPIONATE NA SPR 16 GM BTL NAE SCH (08:11)
[2019-08-08] MEDS: ALLOPURINOL 300 MG TAB PO SCH (08:11)
[2019-08-08] MEDS: BENZONATATE 100 MG CAPSULE PO SCH ×3 (08:12→20:53)
[2019-08-08] MEDS: PANTOprazole 40 MG TAB PO SCH ×2 (08:12→20:53)
[2019-08-08] MEDS: ESCITALOPRAM OXALATE 10 MG TAB PO SCH (08:12)
[2019-08-08] MEDS: ATORVASTATIN 40 MG TAB PO SCH (08:12)
[2019-08-08] MEDS: SODIUM CHLORIDE 0.65% NA SOLN 45 ML (OCEAN) SCH ×4 (08:13→20:54)
[2019-08-08] MEDS ORDERED: INFLUENZA VACCINE HIGH DOSE 65+ 0.5 ML SYR IM ONE (08:30)
[2019-08-08] MEDS ORDERED: INFLUENZA ADMINISTRATION CHARGE ONE (08:30)
[2019-08-08] MEDS ORDERED: METOPROLOL SUCC 50MG EXT REL TAB PO SCH (09:00)
[2019-08-08] MEDS ORDERED: FUROSEMIDE 20 MG TAB PO SCH (09:00)
[2019-08-08 09:13] LABS: BUN Creatinine Ratio 24.2 (10-20); Calcium 7.6 mg/dl (8.5-10.1); Creatinine Clr Calc Pharmacy 18.9 ml/min; Est GFR (African American) 23.4; Est GFR (Non-African American) 20.2; Magnesium 2.4 mg/dl (1.8-2.4); Potassium 4.2 mmol/L (3.5-5.1)
[2019-08-08 09:23] LABS: Folate (Folic Acid) 13.82 ng/ml (>5.38)
--- NOTE | 2019-08-08 10:36 | Cardiology Consultation ---
Date of Consultation August 08, 2019 Assessment & Plan (1) ASCVD (arteriosclerotic cardiovascular disease): (2) Chronic kidney disease, unspecified: (3) S/P CABG x 4: (4) Rectus sheath hematoma: (5) Elevated troponin: (6) Aortic stenosis: I do not believe this patient has acute coronary syndrome. I believe his cardiac troponin elevation is multifactorial including his chronic renal insufficiency and stage IV kidney disease. He is also anemic from rectus sheath hematoma due to mechanical falls. I have ordered an echocardiogram to evaluate his aortic stenosis. Otherwise I would not recommend any additional cardiac testing or treatment at this time. History of Present Illness Attending Physician: Abhishek Koch MD History of Present Illness This is an elderly 89-year-old male patient whose elderly was in the hospital last week with pneumonia. He subsequently had 2 falls at home and then presented to the hospital with a large left rectus sheath hematoma. He is on no anticoagulation or antiplatelet medications. The patient is usually followed by Dr. Escobedo with mild to moderate aortic stenosis and a history of previous coronary artery bypass surgery in 2006. He also has chronic stage IV renal disease. After admission he was noted to have borderline elevation in his cardiac markers which is most likely due to his chronic renal insufficiency. He has no complaints of chest pain. He is not short of breath. EKGs have no acute changes. Of note is the patient is not a good historian and the information is taken mainly from the medical record, nursing as well as his daughter who is in the physiology department at the [employer]. Past medical history: 1.Atherosclerotic coronary disease, prior coronary bypass grafting x4 2006. 2.Calcific aortic stenosis, mild to moderate. 3.Atherosclerotic carotid disease status post left carotid endarterectomy,no obstruction carotid duplex 2012 4.Chronic stage IVrenal insufficiency. 5.Hypertension. 6.Hyperlipidemia Allergies Allergy/AdvReac Type Severity Reaction Status Date / Time niacin Allergy Unknown UNKNOWN Verified 08/07/19 16:55 Home Medications Home Medications Medication Instructions Recorded Confirmed Type acetaminophen [Tylenol Extra 500 mg PO BIDM PRN 08/07/19 08/07/19 History Strength] allopurinol [Zyloprim] 300 mg PO QAM 08/07/19 08/07/19 History aspirin 81 mg PO QAM 08/07/19 08/07/19 History atorvastatin [Lipitor] 80 mg PO QAM 08/07/19 08/07/19 History benzonatate [Tessalon Perles] 100 mg PO TID PRN 08/07/19 08/07/19 History budesonide [Pulmicort] 0.5 mg INHALATION BID PRN 08/07/19 08/07/19 History cefprozil 250 mg PO Q12H 08/07/19 08/07/19 History clobetasol [Cormax] 1 applic TOPICAL UD 08/07/19 08/07/19 History escitalopram oxalate [Lexapro] 5 mg PO QAM 08/07/19 08/07/19 History fluticasone propionate 2 spray INTRANASAL DAILY 08/07/19 08/07/19 History folic acid 400 mcg PO DAILY 08/07/19 08/07/19 History furosemide [Lasix] 20 mg PO QAM 08/07/19 08/07/19 History levalbuterol HCl [Xopenex] 1.25 mg INHALATION Q4H PRN 08/07/19 08/07/19 History loratadine [Claritin] 10 mg PO DAILY 08/07/19 08/07/19 History metoprolol succinate [Toprol XL] 50 mg PO QAM 08/07/19 08/07/19 History pantoprazole [Protonix] 40 mg PO BID 08/07/19 08/07/19 History prednisone 5 mg PO QAM 08/07/19 08/07/19 History prednisone See Rx Instructions .ROUTE .COMPLEX 08/07/19 08/07/19 History ranitidine HCl [Zantac] 150 mg PO BID 08/07/19 08/07/19 History terazosin 2 mg PO QAM 08/07/19 08/07/19 History tramadol [Ultram] 50 mg PO TID PRN 08/07/19 08/07/19 History vitamin B complex [B-Complex] 1 tab PO DAILY 08/07/19 08/07/19 History Patient History Medical History Sepsis (Acute) Aspiration pneumonia (Chronic) CAD, multiple vessel Chronic kidney disease, stage IV (severe) Dyslipidemia GERD without esophagitis History of melanoma in situ Hyperparathyroidism, secondary renal Hypertension Surgical History H/O percutaneous transluminal coronary angioplasty History of appendectomy S/P CABG x 4 Family History Mother , Age 74 Diabetes Heart disease Stroke Father , Age 72 Prostate cancer Sister Arthritis of both knees Arthritis of both feet Heart disease Sister No problems noted. Sister No problems noted. Brother No problems noted. Social History Preferred Language: Czech Communication Ability: Effective Beliefs That Will Affect Care: Restorationism Restorationism Beliefs: SCIENTOLOGY Current Living Situation: Family Current Living Situation Comment: LIVES WITH DAUGHTERS Other Information That Helps Us Care for You: No Feels Safe at Home: Yes Safety Concerns: Feels Safe At This Time Smoking Status: Never smoker Hx Alcohol Use: Yes Alcohol type: beer Hx Substance Use: No Review of Systems Review of Systems: Unobtainable due to cognitive status Physical Exam Physical Exam: General: no acute distress and stated age Head: normocephalic, no masses, lesions, tenderness or abnormalities Eyes: conjunctiva are pink and non-injected, sclera clear Neck: supple, no adenopathy, no bruits, normal jugular venous pulse, no hepatojugular reflux Chest: normal shape and normal respiratory effort Lungs: clear to auscultation and percussion Cardiac Exam: - regular rate & rhythm, systolic murmur left sternal border- normal S1, normal S2 Pulses: 2(+) throughout Abdomen: abdomen soft, non-tender, no abnormal masses and no hepatosplenomegaly Musculoskeletal: no gait disturbance, no joint inflammation, no deforming arthritis Extremities: no edema and no cyanosis Neuro: grossly normal exam Results & Data Vital Signs (Past 12 Hours) Vital Signs Temp Pulse Pulse Resp BP Pulse Ox 08/08/19 07:49 36.9 C 81 124/56 L 93 08/08/19 07:13 74 18 95 08/08/19 03:32 37.0 C 74 16 124/59 L 93 08/08/19 01:16 67 14 95 08/08/19 00:41 58 L 08/08/19 00:10 36.8 C 18 120/69 92 Laboratory Results Laboratory Results - last 24 hr 08/07/19 08/07/19 08/07/19 15:14 15:44 15:44 WBC 11.80 H RBC 3.39 L Hgb 10.6 L Hct 32.7 L MCV 96.5 MCH 31.3 MCHC 32.4 RDW Std Deviation 56.0 H RDW Coeff of Ted 16.0 H Plt Count 208 MPV 10.1 Immature Gran % (Auto) 0.6 Neut % (Auto) 82.2 Lymph % (Auto) 10.8 [place] % (Auto) 6.4 Eos % (Auto) 0.0 Baso % (Auto) 0.0 Immature Gran # (Auto) 0.07 H Neut # (Auto) 9.70 H Lymph # (Auto) 1.27 [place] # (Auto) 0.76 H Eos # (Auto) 0.00 Baso # (Auto) 0.00 PT 10.9 INR 1.1 APTT 22.3 PTT Ratio 0.8 Sodium 140 Potassium 4.3 Chloride 105 Carbon Dioxide 29 Anion Gap 5.0 BUN 68 H Creatinine 2.78 H Est Cr Clr Drug Dosing 18.1 Est GFR ( Amer) 22.5 Est GFR (Non-Af Amer) 19.4 BUN/Creatinine Ratio 24.4 H Glucose 186 H POC Lactic Acid Curtis Calcium 8.1 L Magnesium 2.6 H Total Bilirubin 0.7 AST 40 H ALT 28 Alkaline Phosphatase 57 Troponin I 0.104 H* Total Protein 5.2 L Albumin 2.5 L Globulin 2.7 Albumin/Globulin Ratio 0.9 Vitamin B12 Folate TSH 3.730 Urine Color Urine Appearance Urine pH Ur Specific [place] Urine Protein Urine Glucose (UA) Urine Ketones Urine Blood Urine Nitrite Urine Bilirubin Urine Urobilinogen Ur Leukocyte Esterase Urine RBC Urine WBC Ur Epithelial Cells Urine Bacteria Hyaline Casts Influenza Type A (PCR) Influenza Type B (PCR) Blood Type Antibody Screen Crossmatch 08/07/19 08/07/19 08/07/19 15:50 17:45 21:00 WBC RBC Hgb Hct MCV MCH MCHC RDW Std Deviation RDW Coeff of Ted Plt Count MPV Immature Gran % (Auto) Neut % (Auto) Lymph % (Auto) [place] % (Auto) Eos % (Auto) Baso % (Auto) Immature Gran # (Auto) Neut # (Auto) Lymph # (Auto) [place] # (Auto) Eos # (Auto) Baso # (Auto) PT INR APTT PTT Ratio Sodium Potassium Chloride Carbon Dioxide Anion Gap BUN Creatinine Est Cr Clr Drug Dosing Est GFR ( Amer) Est GFR (Non-Af Amer) BUN/Creatinine Ratio Glucose POC Lactic Acid Curtis 1.68 Calcium Magnesium Total Bilirubin AST ALT Alkaline Phosphatase Troponin I Total Protein Albumin Globulin Albumin/Globulin Ratio Vitamin B12 Folate TSH Urine Color Yellow Urine Appearance Clear Urine pH 5.0 Ur Specific [place] 1.020 Urine Protein Trace H Urine Glucose (UA) Negative Urine Ketones Negative Urine Blood Negative Urine Nitrite Negative Urine Bilirubin Negative Urine Urobilinogen Negative Ur Leukocyte Esterase Negative Urine RBC 0-4 Urine WBC 0-5 Ur Epithelial Cells 0-5 Urine Bacteria Negative Hyaline Casts 5-10 H Influenza Type A (PCR) Neg for Influ A Influenza Type B (PCR) Neg for Influ B Blood Type Antibody Screen Crossmatch 08/07/19 08/07/19 08/07/19 21:59 21:59 21:59 WBC RBC Hgb 10.2 L Hct 30.7 L MCV MCH MCHC RDW Std Deviation RDW Coeff of Ted Plt Count MPV Immature Gran % (Auto) Neut % (Auto) Lymph % (Auto) [place] % (Auto) Eos % (Auto) Baso % (Auto) Immature Gran # (Auto) Neut # (Auto) Lymph # (Auto) [place] # (Auto) Eos # (Auto) Baso # (Auto) PT INR APTT PTT Ratio Sodium Potassium Chloride Carbon Dioxide Anion Gap BUN Creatinine Est Cr Clr Drug Dosing Est GFR ( Amer) Est GFR (Non-Af Amer) BUN/Creatinine Ratio Glucose POC Lactic Acid Curtis Calcium Magnesium Total Bilirubin AST ALT Alkaline Phosphatase Troponin I 0.296 H* Total Protein Albumin Globulin Albumin/Globulin Ratio Vitamin B12 Folate TSH Urine Color Urine Appearance Urine pH Ur Specific [place] Urine Protein Urine Glucose (UA) Urine Ketones Urine Blood Urine Nitrite Urine Bilirubin Urine Urobilinogen Ur Leukocyte Esterase Urine RBC Urine WBC Ur Epithelial Cells Urine Bacteria Hyaline Casts Influenza Type A (PCR) Influenza Type B (PCR) Blood Type B Positive Antibody Screen NEGATIVE Crossmatch See Detail 08/08/19 08/08/19 08/08/19 06:40 06:40 06:40 WBC RBC Hgb 9.3 L Hct 27.5 L MCV MCH MCHC RDW Std Deviation RDW Coeff of Ted Plt Count MPV Immature Gran % (Auto) Neut % (Auto) Lymph % (Auto) [place] % (Auto) Eos % (Auto) Baso % (Auto) Immature Gran # (Auto) Neut # (Auto) Lymph # (Auto) [place] # (Auto) Eos # (Auto) Baso # (Auto) PT INR APTT PTT Ratio Sodium Potassium Chloride Carbon Dioxide Anion Gap BUN Creatinine Est Cr Clr Drug Dosing Est GFR ( Amer) Est GFR (Non-Af Amer) BUN/Creatinine Ratio Glucose POC Lactic Acid Curtis Calcium Magnesium Total Bilirubin AST ALT Alkaline Phosphatase Troponin I 0.238 H* Total Protein Albumin Globulin Albumin/Globulin Ratio Vitamin B12 1520 H Folate 13.82 TSH Urine Color Urine Appearance Urine pH Ur Specific [place] Urine Protein Urine Glucose (UA) Urine Ketones Urine Blood Urine Nitrite Urine Bilirubin Urine Urobilinogen Ur Leukocyte Esterase Urine RBC Urine WBC Ur Epithelial Cells Urine Bacteria Hyaline Casts Influenza Type A (PCR) Influenza Type B (PCR) Blood Type Antibody Screen Crossmatch 08/08/19 06:40 WBC RBC Hgb Hct MCV MCH MCHC RDW Std Deviation RDW Coeff of Ted Plt Count MPV Immature Gran % (Auto) Neut % (Auto) Lymph % (Auto) [place] % (Auto) Eos % (Auto) Baso % (Auto) Immature Gran # (Auto) Neut # (Auto) Lymph # (Auto) [place] # (Auto) Eos # (Auto) Baso # (Auto) PT INR APTT PTT Ratio Sodium 141 Potassium 4.2 Chloride 110 H Carbon Dioxide 24 Anion Gap 7.0 BUN 65 H Creatinine 2.69 H Est Cr Clr Drug Dosing 18.9 Est GFR ( Amer) 23.4 Est GFR (Non-Af Amer) 20.2 BUN/Creatinine Ratio 24.2 H Glucose 91 POC Lactic Acid Curtis Calcium 7.6 L Magnesium 2.4 Total Bilirubin AST ALT Alkaline Phosphatase Troponin I Total Protein Albumin Globulin Albumin/Globulin Ratio Vitamin B12 Folate TSH Urine Color Urine Appearance Urine pH Ur Specific [place] Urine Protein Urine Glucose (UA) Urine Ketones Urine Blood Urine Nitrite Urine Bilirubin Urine Urobilinogen Ur Leukocyte Esterase Urine RBC Urine WBC Ur Epithelial Cells Urine Bacteria Hyaline Casts Influenza Type A (PCR) Influenza Type B (PCR) Blood Type Antibody Screen Crossmatch Medications Administered Current Inpatient Medications Acetaminophen (Tylenol) 650 mg PO Q4H PRN PRN Reason: Pain or Fever Stop: 09/06/19 20:14 Al Hydrox/Mg Hydrox/Simethicone (Maalox) 15 ml PO Q4H PRN PRN Reason: Dyspepsia Stop: 09/06/19 20:14 Allopurinol (Zyloprim) 300 mg PO QAM [facility] Stop: 09/07/19 08:59 Last Admin: 08/08/19 08:11 Dose: 300 mg Documented by: Aspirin (Ecotrin Ectab) 81 mg PO QAM [facility] Stop: 09/07/19 08:59 Last Admin: 08/08/19 08:11 Dose: 81 mg Documented by: Atorvastatin Calcium (Lipitor) 80 mg PO QAM [facility] Stop: 09/07/19 08:59 Last Admin: 08/08/19 08:12 Dose: 80 mg Documented by: Benzonatate (Tessalon Perle) 100 mg PO TID [facility] Stop: 09/06/19 20:59 Last Admin: 08/08/19 08:12 Dose: 100 mg Documented by: Budesonide (Pulmicort Respules) 0.5 mg INH BID PRN PRN Reason: Shortness Of Breath Or Wheezin Stop: 09/06/19 20:14 Escitalopram Oxalate (Lexapro Tab) 5 mg PO [facility] Stop: 09/07/19 08:59 Last Admin: 08/08/19 08:12 Dose: 5 mg Documented by: Fluticasone Propionate (Flonase) 2 sprays ALLY DAILY [facility] Stop: 09/07/19 08:59 Last Admin: 08/08/19 08:11 Dose: 2 sprays Documented by: Folic Acid (Folvite) 400 mcg PO DAILY [facility] Stop: 09/07/19 08:59 Last Admin: 08/08/19 08:11 Dose: 400 mcg Documented by: Sodium Chloride (Nss 1000ml) 1,000 mls @ 80 mls/hr IV .[id number] [facility] Stop: 09/06/19 20:14 Last Admin: 08/08/19 08:08 Dose: 80 mls/hr Documented by: Sodium Chloride (Nss) 250 mls @ 15 mls/hr IV .[id number] PRN PRN Reason: For Transfusion Stop: 09/06/19 20:14 Piperacillin Sod/Tazobactam (Sod 3.375 gm/ Dextrose) 115 mls @ 28.75 mls/hr IV Q12H [facility]; Protocol Stop: 08/15/19 00:00 Last Infusion: 08/08/19 04:48 Dose: Infused Documented by: Ipratropium [place] (Atrovent 0.02% 0.5mg/2.5ml) 0.5 mg INH Q6R [facility] Stop: 09/07/19 00:59 Last Admin: 08/08/19 07:13 Dose: 0.5 mg Documented by: Levalbuterol HCl (Xopenex 1.25mg/0.5ml Neb) 1.25 mg NEB Q6R [facility] Stop: 09/07/19 00:59 Last Admin: 08/08/19 07:13 Dose: 1.25 mg Documented by: Levalbuterol HCl (Xopenex 1.25mg/3ml Neb) 1.25 mg INH Q4H PRN PRN Reason: Wheezing Stop: 09/06/19 20:14 Metoprolol Succinate (Toprol Xl) 50 mg PO QAM [facility] Stop: 09/07/19 08:59 Last Admin: 08/08/19 08:11 Dose: 50 mg Documented by: Miscellaneous Information (Consult) 1 ea N/A UD PRN PRN Reason: Consult Stop: 09/06/19 20:14 Ondansetron HCl (Zofran) 4 mg IV Q6H PRN PRN Reason: Nausea Stop: 09/06/19 20:14 Pantoprazole Sodium (Protonix) 40 mg PO BID [facility] Stop: 09/06/19 20:59 Last Admin: 08/08/19 08:12 Dose: 40 mg Documented by: Polyethylene Glycol (Miralax Powder Packet) 17 gm PO DAILY PRN PRN Reason: Constipation Stop: 09/06/19 20:14 Sodium Chloride ([place] Nasal) 3 sprays NA QID [facility] Stop: 09/07/19 08:59 Last Admin: 08/08/19 08:13 Dose: 3 sprays Documented by: Terazosin HCl (Hytrin) 2 mg PO QAM [facility] Stop: 09/07/19 08:59 Last Admin: 08/08/19 08:11 Dose: 2 mg Documented by: Vitamin B Complex (Vitamin B Complex) 1 tab PO DAILY [facility] Stop: 09/07/19 08:59 Last Admin: 08/08/19 08:11 Dose: 1 tab Documented by: (1) Rectus sheath hematoma Encounter type: initial encounter Qualified Code(s): S30.1XXA - Contusion of abdominal wall, initial encounter
--- NOTE | 2019-08-08 12:52 | Hospitalist Progress Note ---
Date of Service August 08, 2019 Assessment & Plan (1) Rectus sheath hematoma: Noted to have left rectus sheath hematoma on CAT scan measuring 8 x 4 cm Has been on aspirin for CAD with EMILIA Hemoglobin remains stable Doubt any increasing hematoma (2) Bronchitis: He has been complaining of cough likely secondary to bronchitis as an outpatient He received 2 doses of IM ceftriaxone as an outpatient Noted to have acute sinusitis on CT scan of the head Bibasilar densities secondary to atelectasis/pneumonitis Has been getting intravenous Zosyn [employer] to rule out any dysphagia/aspiration (3) Elevated troponin: Mild elevation of troponin Likely secondary to abnormal liver function test and demand ischemia,doubt any ACS Appreciate cardiology input and recommendation (4) Acute renal failure superimposed on chronic kidney disease: Noted to have a creatinine of 2.78 on admission with increasing BUN Getting cautious amount intravenous fluid Creatinine has been improving Monitor PRP (5) ASCVD (arteriosclerotic cardiovascular disease): Has history of CAD status post EMILIA placement Appreciate cardiology input and recommendation (6) Sinusitis: Has been on Zosyn for now Likely changed to Augmentin on discharge (7) DVT prophylaxis: SCDs for now No pharmacologic anticoagulation due to rectus sheath hematoma Subjective 08/08 The patient was seen and examined in telemetry unit Admitted with the outpatient failure of acute bronchitis/pneumonia and rectus sheath hematoma Noted to have acute sinobronchitis Clinically better today Denies any chest pain and/or palpitation Review of Systems Review of Systems: All systems reviewed and are unremarkable except as noted below Constitutional: + fatigue and + weakness Ear, Nose, Mouth, Throat: + hearing loss Respiratory: + cough and + dyspnea Cardiovascular: no chest pain Physical Exam Physical Exam: Lying in bed comfortably Constitutional: well developed, well nourished and + ill appearing; no acute distress Eyes: PERRL, conjunctivae normal, anicteric sclerae ENMT: external ear and nose normal, oropharynx normal Neck: trachea midline, no thyromegaly Respiratory: normal respiratory effort Auscultation: + diminished lung sounds Cardiovascular: Rate/Rhythm: regular rate and regular rhythm Heart Sounds: + murmur Gastrointestinal (Abdomen): Inspection/Auscultation: abdomen normal to inspection Percussion/Palpation: + abdomen tender and abdomen soft Musculoskeletal: No acute arthritis in any joints Neurologic: moves all extremities; no focal motor deficits Is very hard of hearing Lymphatic: no cervical or axillary lymphadenopathy Results & Data Vital Signs (Past 12 Hours) Vital Signs Temp Pulse Pulse Pulse Resp BP Pulse Ox 08/08/19 11:48 36.7 C 78 20 133/65 08/08/19 11:41 08/08/19 07:49 36.9 C 81 124/56 L 93 08/08/19 07:13 74 18 95 08/08/19 03:32 37.0 C 74 16 124/59 L 93 08/08/19 01:16 67 14 95 08/08/19 00:41 58 L Pulse Ox 08/08/19 11:48 08/08/19 11:41 95 08/08/19 07:49 08/08/19 07:13 08/08/19 03:32 08/08/19 01:16 08/08/19 00:41 Laboratory Results Short CBC 08/07/19 08/07/19 08/08/19 Range/Units 15:44 21:59 06:40 WBC 11.80 H (4.8-10.8) K/uL Hgb 10.6 L 10.2 L 9.3 L (14.0-18.0) g/dL Hct 32.7 L 30.7 L 27.5 L (42-52) % Plt Count 208 (130-400) K/uL BMP 08/07/19 08/08/19 15:44 06:40 Sodium 140 141 Potassium 4.3 4.2 Chloride 105 110 H Carbon Dioxide 29 24 BUN 68 H 65 H Creatinine 2.78 H 2.69 H Glucose 186 H 91 Calcium 8.1 L 7.6 L Cardiac Enzymes 08/07/19 08/07/19 08/08/19 Range/Units 15:44 21:59 06:40 Troponin I 0.104 H* 0.296 H* 0.238 H* (0-0.045) ng/ml Liver Function 08/07/19 Range/Units 15:44 Total Bilirubin 0.7 (0.2-1) mg/dl AST 40 H (15-37) U/L ALT 28 (12-78) U/L Alkaline Phosphatase 57 (45-117) U/L Albumin 2.5 L (3.4-5.0) gm/dl Urine 08/07/19 Range/Units 21:00 Urine Color Yellow Urine Appearance Clear (Clear) Urine pH 5.0 (4.5-7.5) Ur Specific [place] 1.020 (1.000-1.030) Urine Protein Trace H (Negative) Urine Glucose (UA) Negative (Negative) Medications Administered Current Inpatient Medications Acetaminophen (Tylenol) 650 mg PO Q4H PRN PRN Reason: Pain or Fever Stop: 09/06/19 20:14 Al Hydrox/Mg Hydrox/Simethicone (Maalox) 15 ml PO Q4H PRN PRN Reason: Dyspepsia Stop: 09/06/19 20:14 Allopurinol (Zyloprim) 300 mg PO [facility] Stop: 09/07/19 08:59 Last Admin: 08/08/19 08:11 Dose: 300 mg Documented by: Aspirin (Ecotrin Ectab) 81 mg PO [facility] Stop: 09/07/19 08:59 Last Admin: 08/08/19 08:11 Dose: 81 mg Documented by: Atorvastatin Calcium (Lipitor) 80 mg PO [facility] Stop: 09/07/19 08:59 Last Admin: 08/08/19 08:12 Dose: 80 mg Documented by: Benzonatate (Tessalon Perle) 100 mg PO TID [facility] Stop: 09/06/19 20:59 Last Admin: 08/08/19 08:12 Dose: 100 mg Documented by: Budesonide (Pulmicort Respules) 0.5 mg INH BID PRN PRN Reason: Shortness Of Breath Or Wheezin Stop: 09/06/19 20:14 Escitalopram Oxalate (Lexapro Tab) 5 mg PO [facility] Stop: 09/07/19 08:59 Last Admin: 08/08/19 08:12 Dose: 5 mg Documented by: Fluticasone Propionate (Flonase) 2 sprays ALLY DAILY [facility] Stop: 09/07/19 08:59 Last Admin: 08/08/19 08:11 Dose: 2 sprays Documented by: Folic Acid (Folvite) 400 mcg PO DAILY [facility] Stop: 09/07/19 08:59 Last Admin: 08/08/19 08:11 Dose: 400 mcg Documented by: Sodium Chloride (Nss 1000ml) 1,000 mls @ 80 mls/hr IV .[id number] [facility] Stop: 09/06/19 20:14 Last Admin: 08/08/19 08:08 Dose: 80 mls/hr Documented by: Sodium Chloride (Nss) 250 mls @ 15 mls/hr IV .[id number] PRN PRN Reason: For Transfusion Stop: 09/06/19 20:14 Piperacillin Sod/Tazobactam (Sod 3.375 gm/ Dextrose) 115 mls @ 28.75 mls/hr IV Q12H [facility]; Protocol Stop: 08/15/19 00:00 Last Admin: 08/08/19 11:49 Dose: 30 mls/hr Documented by: Ipratropium [place] (Atrovent 0.02% 0.5mg/2.5ml) 0.5 mg INH Q6R [facility] Stop: 09/07/19 00:59 Last Admin: 08/08/19 07:13 Dose: 0.5 mg Documented by: Levalbuterol HCl (Xopenex 1.25mg/0.5ml Neb) 1.25 mg NEB Q6R [facility] Stop: 09/07/19 00:59 Last Admin: 08/08/19 07:13 Dose: 1.25 mg Documented by: Levalbuterol HCl (Xopenex 1.25mg/3ml Neb) 1.25 mg INH Q4H PRN PRN Reason: Wheezing Stop: 09/06/19 20:14 Metoprolol Succinate (Toprol Xl) 50 mg PO QAM [facility] Stop: 09/07/19 08:59 Last Admin: 08/08/19 08:11 Dose: 50 mg Documented by: Miscellaneous Information (Consult) 1 ea N/A UD PRN PRN Reason: Consult Stop: 09/06/19 20:14 Ondansetron HCl (Zofran) 4 mg IV Q6H PRN PRN Reason: Nausea Stop: 09/06/19 20:14 Pantoprazole Sodium (Protonix) 40 mg PO BID [facility] Stop: 09/06/19 20:59 Last Admin: 08/08/19 08:12 Dose: 40 mg Documented by: Polyethylene Glycol (Miralax Powder Packet) 17 gm PO DAILY PRN PRN Reason: Constipation Stop: 09/06/19 20:14 Sodium Chloride ([place] Nasal) 3 sprays NA QID [facility] Stop: 09/07/19 08:59 Last Admin: 08/08/19 08:13 Dose: 3 sprays Documented by: Terazosin HCl (Hytrin) 2 mg PO QAM [facility] Stop: 09/07/19 08:59 Last Admin: 08/08/19 08:11 Dose: 2 mg Documented by: Vitamin B Complex (Vitamin B Complex) 1 tab PO DAILY [facility] Stop: 09/07/19 08:59 Last Admin: 08/08/19 08:11 Dose: 1 tab Documented by: (1) Rectus sheath hematoma Encounter type: initial encounter Qualified Code(s): S30.1XXA - Contusion of abdominal wall, initial encounter (2) Sinusitis Chronicity: unspecified Sinusitis location: unspecified location Qualified Code(s): J32.9 - Chronic sinusitis, unspecified
[2019-08-08] MEDS ORDERED: PERFLUTREN LIPID MICROSPHERE (DEFINITY) IV ONE (13:26)
[2019-08-08] MEDS ORDERED: Nursing to Pharmacy Communication ONE (14:19)
[2019-08-08] MEDS ORDERED: BENZONATATE 100 MG CAPSULE PO PRN (18:09)
[2019-08-08] MEDS ORDERED: ACETAMINOPHEN 500 MG TAB PO PRN (18:09)
[2019-08-08] MEDS ORDERED: METOPROLOL SUCC 50MG EXT REL TAB PO STA (23:58)
[2019-08-09] MEDS: PIPERACILLIN/TAZOBACTAM 3.375 GM in DEXTROSE 5% 100 ML IV SCH ×3 (00:10→23:38)
[2019-08-09] MEDS: LEVALBUTEROL 1.25MG/0.5ML NEB NEB SCH ×4 (01:02→19:08)
[2019-08-09] MEDS: IPRATROPIUM BROMIDE NEB SOLN 0.02% 2.5 ML VIAL INH SCH ×4 (01:02→19:08)
[2019-08-09] MEDS: SODIUM CHLORIDE 0.9% 1000ML 1,000 ML IV SCH ×2 (06:45→21:18)
[2019-08-09 07:05] LABS: Eosinophils # (auto) 0.27 K/uL (0-0.5); Eosinophils % (auto) 3.2 %; Hematocrit (blood only) 27.1 % (42-52); Hemoglobin 9.1 g/dL (14.0-18.0); Immature Granulocytes # (auto) 0.05 K/uL (0.00-0.02); Immature Granulocytes % (auto) 0.6 %; Lymphocytes # (auto) 1.44 K/uL (1.2-3.4); Lymphocytes % (auto) 17.1 %; Mean Corpuscular Hemoglobin 31.9 pg (25-34); Mean Corpuscular Hgb Conc 33.6 g/dL (32-36); Mean Corpuscular Volume 95.1 fL (80-100); Monocytes # (auto) 0.72 K/uL (0.11-0.59); Monocytes % (auto) 8.5 %; Neutrophils # (auto) 5.96 K/uL (1.4-6.5); Neutrophils % (auto) 70.6 %; Platelet Count 193 K/uL (130-400); RDW Coefficient of Variation 16.1 % (11.5-14.5); RDW Standard Deviation 55.8 fL (36.4-46.3); Red Blood Count 2.85 M/uL (4.7-6.1); White Blood Count 8.44 K/uL (4.8-10.8)
[2019-08-09 07:30] LABS: Calcium 7.8 mg/dl (8.5-10.1); Creatinine Clr Calc Pharmacy 18.8 ml/min; Est GFR (African American) 23.3; Est GFR (Non-African American) 20.1; Magnesium 2.3 mg/dl (1.8-2.4); Potassium 4.1 mmol/L (3.5-5.1)
[2019-08-09] MEDS: LORATADINE 10 MG TAB PO SCH (08:49)
[2019-08-09] MEDS: ASPIRIN 81 MG ECTAB PO SCH (08:49)
[2019-08-09] MEDS: FLUTICASONE PROPIONATE NA SPR 16 GM BTL NAE SCH (08:49)
[2019-08-09] MEDS: FOLIC ACID 400 MCG TAB PO SCH (08:50)
[2019-08-09] MEDS: ATORVASTATIN 40 MG TAB PO SCH (08:50)
[2019-08-09] MEDS: SODIUM CHLORIDE 0.65% NA SOLN 45 ML (OCEAN) SCH ×4 (08:50→21:18)
[2019-08-09] MEDS: ESCITALOPRAM OXALATE 10 MG TAB PO SCH (08:50)
[2019-08-09] MEDS: TERAZOSIN HCL 1 MG CAP PO SCH (08:50)
[2019-08-09] MEDS: BENZONATATE 100 MG CAPSULE PO SCH ×3 (08:51→21:18)
[2019-08-09] MEDS: PANTOprazole 40 MG TAB PO SCH ×2 (08:51→21:18)
[2019-08-09] MEDS: predniSONE 5 MG TAB PO SCH (08:51)
[2019-08-09] MEDS: ALLOPURINOL 300 MG TAB PO SCH (08:51)
[2019-08-09] MEDS: VITAMIN B COMPLEX TAB PO SCH (08:51)
--- NOTE | 2019-08-09 17:50 | Hospitalist Progress Note ---
Date of Service August 09, 2019 Assessment & Plan (1) Rectus sheath hematoma: Noted to have left rectus sheath hematoma on CAT scan measuring 8 x 4 cm Has been on aspirin for CAD with EMILIA Hemoglobin remains stable Doubt any increasing hematoma Showing the natural course of rectus sheath hematoma Hemoglobin is minimally down to 9.1 from 10.6 on admission, could be complicated by intravenous fluid Denies any more pain Will monitor CBC (2) Bronchitis: He has been complaining of cough likely secondary to bronchitis as an outpatient He received 2 doses of IM ceftriaxone as an outpatient Noted to have acute sinusitis on CT scan of the head Bibasilar densities secondary to atelectasis/pneumonitis Has been getting intravenous Zosyn CLINICAL ASSOCIATE to rule out any dysphagia/aspiration;-appreciate speech evaluation and recommendation (3) Elevated troponin: Mild elevation of troponin Likely secondary to abnormal liver function test and demand ischemia,doubt any ACS Appreciate cardiology input and recommendation Cardiac status remains stable (4) Acute renal failure superimposed on chronic kidney disease: Noted to have a creatinine of 2.78 on admission with increasing BUN Getting cautious amount intravenous fluid Creatinine has been improving Creatinine has been worsening recently as per outpatient labs done Nephrology has been consulted for further recommendation (5) ASCVD (arteriosclerotic cardiovascular disease): Has history of CAD status post EMILIA placement Appreciate cardiology input and recommendation (6) Sinusitis: Has been on Zosyn for now Likely changed to Augmentin on discharge Possible Parkinson disease/benign essential tremor No acute to have parkinsonian type movement in the emergency room Will get neurology evaluation as requested by the daughter (7) DVT prophylaxis: SCDs for now No pharmacologic anticoagulation due to rectus sheath hematoma PT and OT evaluation for possible placement Discussed with the daughter in detail Subjective 08/08 The patient was seen and examined in telemetry unit Admitted with the outpatient failure of acute bronchitis/pneumonia and rectus sheath hematoma Noted to have acute sinobronchitis Clinically better today Denies any chest pain and/or palpitation 08/09 The patient was seen and examined in medical floor He remains generally weak and lethargic but denies any significant symptoms Denies any chest pain, cough, palpitation, any abdominal pain, nausea and/or vomiting Review of Systems Review of Systems: All systems reviewed and are unremarkable except as noted below Constitutional: + fatigue and + weakness Ear, Nose, Mouth, Throat: + hearing loss Respiratory: + cough and + dyspnea Musculoskeletal: No acute arthritis in any joints Neurologic: + generalized weakness Physical Exam Physical Exam: Lying in bed comfortably Constitutional: well developed, well nourished and + ill appearing; no acute distress Eyes: PERRL, conjunctivae normal, anicteric sclerae ENMT: external ear and nose normal, oropharynx normal Neck: trachea midline, no thyromegaly Respiratory: normal respiratory effort Auscultation: + diminished lung so unds and + crackles (Minimal crackles at the bases) Cardiovascular: Rate/Rhythm: regular rate and regular rhythm Heart Sounds: + murmur Gastrointestinal (Abdomen): Inspection/Auscultation: abdomen normal to inspection Percussion/Palpation: + abdomen tender and abdomen soft Bruising noted adjoining the hematoma site Musculoskeletal: No acute arthritis in any joints Neurologic: moves all extremities; no focal motor deficits Motor/Sensory: + tremor (Noted to be worse with activity) Alert and awake, slow response to common Lymphatic: no cervical or axillary lymphadenopathy Results & Data Vital Signs (Past 12 Hours) Vital Signs Temp Pulse Resp BP Pulse Ox 08/09/19 15:40 36.8 C 76 21 118/67 94 08/09/19 13:22 80 18 91 08/09/19 11:44 36.3 C L 74 18 151/65 H 95 08/09/19 09:45 36.5 C 82 18 140/72 94 08/09/19 07:47 86 18 95 Laboratory Results Short CBC 08/09/19 Range/Units 06:32 WBC 8.44 (4.8-10.8) K/uL Hgb 9.1 L (14.0-18.0) g/dL Hct 27.1 L (42-52) % Plt Count 193 (130-400) K/uL BMP 08/09/19 06:32 Sodium 141 Potassium 4.1 Chloride 111 H Carbon Dioxide 26 BUN 54 H Creatinine 2.70 H Glucose 89 Calcium 7.8 L Medications Administered Current Inpatient Medications Acetaminophen (Tylenol) 650 mg PO Q4H PRN PRN Reason: Pain or Fever Stop: 09/06/19 20:14 Acetaminophen (Tylenol) 500 mg PO BIDM PRN PRN Reason: Pain Stop: 09/07/19 18:08 Al Hydrox/Mg Hydrox/Simethicone (Maalox) 15 ml PO Q4H PRN PRN Reason: Dyspepsia Stop: 09/06/19 20:14 Allopurinol (Zyloprim) 300 mg PO QAM [facility] Stop: 09/07/19 08:59 Last Admin: 08/09/19 08:51 Dose: 300 mg Documented by: Aspirin (Ecotrin Ectab) 81 mg PO QAM [facility] Stop: 09/07/19 08:59 Last Admin: 08/09/19 08:49 Dose: 81 mg Documented by: Atorvastatin Calcium (Lipitor) 80 mg PO QAM [facility] Stop: 09/07/19 08:59 Last Admin: 08/09/19 08:50 Dose: 80 mg Documented by: Benzonatate (Tessalon Perle) 100 mg PO TID [facility] Stop: 09/06/19 20:59 Last Admin: 08/09/19 13:12 Dose: 100 mg Documented by: Benzonatate (Tessalon Perle) 100 mg PO TID PRN PRN Reason: Cough Stop: 09/07/19 18:08 Budesonide (Pulmicort Respules) 0.5 mg INH BID PRN PRN Reason: Shortness Of Breath Or Wheezin Stop: 09/06/19 20:14 Escitalopram [facility]al[facility] ([facility]apro Tab) [facility] [place] Stop: 09/07/19 08:59 Last Admin: 08/09/19 08:50 Dose: 5 mg Documented by: Fluticasone Propionate (Flonase) 2 sprays ALLY DAILY [facility] Stop: 09/07/19 08:59 Last Admin: 08/09/19 08:49 Dose: 2 sprays Documented by: Folic Acid (Folvite) 400 mcg PO DAILY [facility] Stop: 09/07/19 08:59 Last Admin: 08/09/19 08:50 Dose: 400 mcg Documented by: Sodium Chloride (Nss 1000ml) 1,000 mls @ 80 mls/hr IV .[id number] [facility] Stop: 09/06/19 20:14 Last Admin: 08/09/19 06:45 Dose: 80 mls/hr Documented by: Sodium Chloride (Nss) 250 mls @ 15 mls/hr IV .[id number] PRN PRN Reason: For Transfusion Stop: 09/06/19 20:14 Piperacillin Sod/Tazobactam (Sod 3.375 gm/ Dextrose) 115 mls @ 28.75 mls/hr IV Q12H [facility]; Protocol Stop: 08/15/19 00:00 Last Infusion: 08/09/19 16:00 Dose: Infused Documented by: Ipratropium [place] (Atrovent 0.02% 0.5mg/2.5ml) 0.5 mg INH Q6R [facility] Stop: 09/07/19 00:59 Last Admin: 08/09/19 13:21 Dose: 0.5 mg Documented by: Levalbuterol HCl (Xopenex 1.25mg/0.5ml Neb) 1.25 mg NEB Q6R [facility] Stop: 09/07/19 00:59 Last Admin: 08/09/19 13:21 Dose: 1.25 mg Documented by: Levalbuterol HCl (Xopenex 1.25mg/3ml Neb) 1.25 mg INH Q4H PRN PRN Reason: Wheezing Stop: 09/06/19 20:14 Loratadine (Claritin) 10 mg PO DAILY [facility] Stop: 09/08/19 08:59 Last Admin: 08/09/19 08:49 Dose: 10 mg Documented by: Metoprolol Succinate (Toprol Xl) 50 mg PO QAM [facility] Stop: 09/09/19 08:59 Miscellaneous (Order Awaiting Action) 1 ea N/A QS [facility] Stop: 09/08/19 00:00 Last Admin: 08/09/19 16:57 Dose: Not Given Documented by: Miscellaneous Information (Consult) 1 ea N/A UD PRN PRN Reason: Consult Stop: 09/06/19 20:14 Ondansetron HCl (Zofran) 4 mg IV Q6H PRN PRN Reason: Nausea Stop: 09/06/19 20:14 Pantoprazole Sodium (Protonix) 40 mg PO BID [facility] Stop: 09/06/19 20:59 Last Admin: 08/09/19 08:51 Dose: 40 mg Documented by: Polyethylene Glycol (Miralax Powder Packet) 17 gm PO DAILY PRN PRN Reason: Constipation Stop: 09/06/19 20:14 Prednisone (Prednisone) 5 mg PO QAM [facility] Stop: 09/08/19 08:59 Last Admin: 08/09/19 08:51 Dose: 5 mg Documented by: Sodium Chloride ([place] Nasal) 3 sprays NA QID [facility] Stop: 09/07/19 08:59 Last Admin: 08/09/19 17:38 Dose: Not Given Documented by: Terazosin HCl (Hytrin) 2 mg PO QAM [facility] Stop: 09/07/19 08:59 Last Admin: 08/09/19 08:50 Dose: 2 mg Documented by: Vitamin B Complex (Vitamin B Complex) 1 tab PO DAILY [facility] Stop: 09/07/19 08:59 Last Admin: 08/09/19 08:51 Dose: 1 tab Documented by: (1) Rectus sheath hematoma Encounter type: initial encounter Qualified Code(s): S30.1XXA - Contusion of abdominal wall, initial encounter (2) Sinusitis Chronicity: unspecified Sinusitis location: unspecified location Qualified Code(s): J32.9 - Chronic sinusitis, unspecified
[2019-08-10] MEDS: IPRATROPIUM BROMIDE NEB SOLN 0.02% 2.5 ML VIAL INH SCH ×4 (01:14→18:47)
[2019-08-10] MEDS: LEVALBUTEROL 1.25MG/0.5ML NEB NEB SCH ×4 (01:14→18:47)
[2019-08-10 07:05] LABS: Hematocrit (blood only) 24.1 % (42-52); Hemoglobin 8.2 g/dL (14.0-18.0); Immature Granulocytes # (auto) 0.03 K/uL (0.00-0.02); Immature Granulocytes % (auto) 0.4 %; Lymphocytes # (auto) 1.55 K/uL (1.2-3.4); Mean Corpuscular Hemoglobin 32.2 pg (25-34); Mean Corpuscular Volume 94.5 fL (80-100); Mean Platelet Volume 9.6 fL (7.4-10.4); Monocytes # (auto) 0.61 K/uL (0.11-0.59); Monocytes % (auto) 7.5 %; Neutrophils # (auto) 5.96 K/uL (1.4-6.5); Neutrophils % (auto) 73.1 %; Platelet Count 171 K/uL (130-400); RDW Coefficient of Variation 16.3 % (11.5-14.5); RDW Standard Deviation 55.8 fL (36.4-46.3); Red Blood Count 2.55 M/uL (4.7-6.1); White Blood Count 8.15 K/uL (4.8-10.8)
[2019-08-10 07:34] LABS: BUN Creatinine Ratio 18.6 (10-20); Calcium 7.7 mg/dl (8.5-10.1); Creatinine Clr Calc Pharmacy 21.6 ml/min; Est GFR (African American) 27.6; Est GFR (Non-African American) 23.8; Potassium 4.1 mmol/L (3.5-5.1)
--- NOTE | 2019-08-10 08:21 | Nephrology Consultation ---
Date of Consultation August 10, 2019 Assessment & Plan (1) Chronic kidney disease, unspecified: baseline creatinine 2.3-2.5 in 2019 as OP w/ some lability and w/ 1.5 gm daily proteinuria most recently. While he had TAYLOR on presentation, this has since resolved w/ gentle hydration. his urine sediment on presentation was concentrated but bland apart from expected dipstick proteinuria. his chemistries have been acceptable apart from progressive hyperchloremia, likely from NS -daily bmp while in house -at this point w/ HTN would stop NS -cont to hold OP lasix Present on Admission?: Yes (2) HTN (hypertension): elevated > should w/ stopping NS have acceptable control in house for pt his age and comorbidities -cont BB, terazosin -hold lasix OP Present on Admission?: Yes (3) Acute on chronic anemia: notable that despite advanced CKD this pt is generally as OP not anemic or only mildly so. suspect the acute worsening is d/t rectal sheath hematoma. -monitor hgb daily -transfuse if <7 or sx Present on Admission?: Yes History of Present Illness Reason for Consultation: Worsening renal function Requesting Physician: Dr Koch Attending Physician: Mehul Her MD History of Present Illness 89 y/o M whom I'm asked to see for worsening renal function after he was admitted here 08/07 w/ rectal sheath hematoma after a fall at home. PMH includes CKD 4, longstanding HTN, CAD s/p stenting and 2006 4V CABG, HL, melanoma in situ L arm, concern in past for sick sinus syndrome, remote CEA 1994, BL complex renal cysts. He follows w/ me in CKD clinic: CKD attributed to advanced age, HTN, diffuse microvascular disease, BL complex renal cysts. His creatinine can be labile but in 2019 as OP runs generally 2.3-2.5 w/ about 1.5 gm proteinuria. His presenting creatinine and hgb respectively on 08/07 were 2.8 and 10.6; this am they are 2.4 and 8.2. He is currently receiving NS at 80 mL/hr and zosyn for sinusitis noted on admission. Allergies Allergy/AdvReac Type Severity Reaction Status Date / Time niacin Allergy Unknown UNKNOWN Verified 08/07/19 16:55 Home Medications Home Medications Medication Instructions Recorded Confirmed Type acetaminophen [Tylenol Extra 500 mg PO BIDM PRN 08/07/19 08/07/19 History Strength] allopurinol [Zyloprim] 300 mg PO QAM 08/07/19 08/07/19 History aspirin 81 mg PO QAM 08/07/19 08/07/19 History atorvastatin [Lipitor] 80 mg PO QAM 08/07/19 08/07/19 History benzonatate [Tessalon Perles] 100 mg PO TID PRN 08/07/19 08/07/19 History budesonide [Pulmicort] 0.5 mg INHALATION BID PRN 08/07/19 08/07/19 History cefprozil 250 mg PO Q12H 08/07/19 08/07/19 History clobetasol [Cormax] 1 applic TOPICAL UD 08/07/19 08/07/19 History escitalopram oxalate [Lexapro] 5 mg PO QAM 08/07/19 08/07/19 History fluticasone propionate 2 spray INTRANASAL DAILY 08/07/19 08/07/19 History folic acid 400 mcg PO DAILY 08/07/19 08/07/19 History furosemide [Lasix] 20 mg PO QAM 08/07/19 08/07/19 History levalbuterol HCl [Xopenex] 1.25 mg INHALATION Q4H PRN 08/07/19 08/07/19 History loratadine [Claritin] 10 mg PO DAILY 08/07/19 08/07/19 History metoprolol succinate [Toprol XL] 50 mg PO QAM 08/07/19 08/07/19 History pantoprazole [Protonix] 40 mg PO BID 08/07/19 08/07/19 History prednisone 5 mg PO QAM 08/07/19 08/07/19 History prednisone See Rx Instructions .ROUTE .COMPLEX 08/07/19 08/07/19 History ranitidine HCl [Zantac] 150 mg PO BID 08/07/19 08/07/19 History terazosin 2 mg PO QAM 08/07/19 08/07/19 History tramadol [Ultram] 50 mg PO TID PRN 08/07/19 08/07/19 History vitamin B complex [B-Complex] 1 tab PO DAILY 08/07/19 08/07/19 History Patient History Medical History Sepsis (Acute) Aspiration pneumonia (Chronic) CAD, multiple vessel Chronic kidney disease, stage IV (severe) Dyslipidemia GERD without esophagitis History of melanoma in situ Hyperparathyroidism, secondary renal Hypertension Surgical History H/O percutaneous transluminal coronary angioplasty History of appendectomy S/P CABG x 4 Family History Mother , Age 74 Diabetes Heart disease Stroke Father , Age 72 Prostate cancer Sister Arthritis of both knees Arthritis of both feet Heart disease Sister No problems noted. Sister No problems noted. Brother No problems noted. Social History Preferred Language: Malawian Communication Ability: Effective Beliefs That Will Affect Care: Druze Druze Beliefs: JEW Current Living Situation: Family Current Living Situation Comment: LIVES WITH DAUGHTERS Other Information That Helps Us Care for You: No Feels Safe at Home: Yes Safety Concerns: Feels Safe At This Time Smoking Status: Never smoker Hx Alcohol Use: Yes Alcohol type: beer Hx Substance Use: No Review of Systems Review of Systems: limited by pt hearing Constitutional: + body aches, + fatigue and + anorexia Eyes: no worsening vision Ear, Nose, Mouth, Throat: no sinus pain/pressure Respiratory: + cough; no dyspnea Cardiovascular: no chest pain, no palpitations and no edema Genitourinary: + urinary frequency and + nocturia; no urinary hesitancy Musculoskeletal: + body aches Physical Exam Constitutional: well developed and well nourished on RA sitting up in chair, visibly tired and frustrated Eyes: EOM intact bilaterally; no EOM movement deficit ENMT: Ears: + hearing impairment (stable chronic); no external ear abnormality Nose: no external nose abnormality Mouth: + dry oral mucous membranes Neck: no nuchal rigidity Respiratory: normal respiratory effort Auscultation: lungs clear to auscultation bilaterally and + diminished lung sounds Cardiovascular: RRR, no murmur, no edema Gastrointestinal (Abdomen): Inspection/Auscultation: + abdomen distended and normal bowel sounds Percussion/Palpation: abdomen soft; abdomen nontender Musculoskeletal: Extremities: strength 5/5 throughout Skin: no rashes, warm and dry Neurologic: cao, fluent though limited speech, no tremor Psychiatric: Orientation: alert and oriented x 3 Affect: + flat affect Mood: + depressed mood Genitourinary: no acevedo Results & Data Vital Signs (Past 12 Hours) Vital Signs Temp Pulse Resp BP Pulse Ox 08/10/19 07:19 36.5 C 90 16 156/83 H 94 08/10/19 07:16 71 18 95 08/10/19 01:14 81 16 95 08/09/19 22:57 36.6 C 85 17 147/82 H 96 Laboratory Results 08/10/19 06:43 08/10/19 06:[address] abd/pelvis non con FINDINGS: Poststernotomy changes. Bibasilar linear densities favor subsegmental atelectasis. No pneumoperitoneum. No pneumatosis. No suspicious lytic are blastic osseous lesions. The unenhanced gallbladder, spleen, adrenal glands, and pancreas are unremarkable. Bilateral renal hypodense lesions are incompletely characterized on this noncontrast study but favor cysts. No hydronephrosis. Calcified plaque within the normal caliber abdominal aorta. No retroperitoneal lymphadenopathy. A few calcified granulomas within the right hepatic lobe. The bladder is unremarkable. Suboptimal evaluation for bowel pathology due to the lack of intravenous and oral contrast. However, there is no definite bowel wall thickening or obstruction. A few colonic diverticula. No evidence for diverticulitis. Normal appendix. There is a left rectus sheath hematoma extendi ng along the entire length of the left rectus sheath and measuring up to 8.2 x 3.8 cm in thickness. There is also small amount of extraperitoneal hemorrhage within the lower anterior abdomen. Left subcutaneous edema is noted. IMPRESSION: 1. A large left rectus sheath hematoma as described above. 2. There is also small amount of hemorrhage extending into the extraperitoneal space within the lower anterior abdomen. 3. Additional findings as described above. Head CT No acute intracranial abnormality. Atrophy and microvascular ischemic changes. Acute right maxillary sinusitis. cxr No significant change compared to the prior study. No acute process. Low lung volumes with bibasilar subsegmental atelectasis persists. (1) Chronic kidney disease, unspecified Chronic kidney disease stage: stage 4 (severe) Qualified Code(s): N18.4 - Chronic kidney disease, stage 4 (severe) (2) HTN (hypertension) Hypertension type: essential hypertension Qualified Code(s): I10 - Essential (primary) hypertension
[2019-08-10] MEDS: BENZONATATE 100 MG CAPSULE PO SCH ×3 (08:48→20:39)
[2019-08-10] MEDS: VITAMIN B COMPLEX TAB PO SCH (08:48)
[2019-08-10] MEDS: ATORVASTATIN 40 MG TAB PO SCH (08:49)
[2019-08-10] MEDS: LORATADINE 10 MG TAB PO SCH (08:49)
[2019-08-10] MEDS: ALLOPURINOL 300 MG TAB PO SCH (08:49)
[2019-08-10] MEDS: FLUTICASONE PROPIONATE NA SPR 16 GM BTL NAE SCH (08:49)
[2019-08-10] MEDS: FOLIC ACID 400 MCG TAB PO SCH (08:49)
[2019-08-10] MEDS: ASPIRIN 81 MG ECTAB PO SCH (08:49)
[2019-08-10] MEDS: TERAZOSIN HCL 1 MG CAP PO SCH (08:50)
[2019-08-10] MEDS: predniSONE 5 MG TAB PO SCH (08:50)
[2019-08-10] MEDS: PANTOprazole 40 MG TAB PO SCH ×2 (08:50→20:39)
[2019-08-10] MEDS: ESCITALOPRAM OXALATE 10 MG TAB PO SCH (08:50)
[2019-08-10] MEDS: SODIUM CHLORIDE 0.65% NA SOLN 45 ML (OCEAN) SCH ×4 (08:52→20:39)
[2019-08-10] MEDS ORDERED: METOPROLOL SUCC 50MG EXT REL TAB PO SCH (09:00)
[2019-08-10] MEDS: SODIUM CHLORIDE 0.9% 1000ML 1,000 ML IV SCH (10:45)
[2019-08-10] MEDS: PIPERACILLIN/TAZOBACTAM 3.375 GM in DEXTROSE 5% 100 ML IV SCH (12:01)
--- NOTE | 2019-08-10 14:24 | Neurology Consultation ---
Date of Consultation August 10, 2019 Assessment & Plan (1) Tremor: 1. tremor appears to be mixed but more essential tremor than parkinson type 2. pneumonia- inhaler treatments may aggrevate the tremor 3. would not treat at this time 4. PT/OT for discharge needs 5. once rehab is completed will see back in our office for further evaluation for tremor and dementia if family wishes 6. currently drowsy with exam - multiple factors limiting exam Supervising Physician Co-Signing Physician Notes I have seen and discussed above patient with Dr Monik Gonzalez, neurology. Pt seen and examined. Pt with family hx of ET. Pt med reviewed.No facial masking, nml blink frequency There is a minimal jaw tremor. There is an intention>posturalgreater than rest tremor. No cogwheel rigidity is noted. Pt is not bradykinetic. His gait is not narrow based and he is not bradykinetic. Turns are appropriate for age. This pt has an ET. There is a minor componenet of a resting tremor, which is likely overflow. This pt does not have cogwheel rigidity or bradykinetic. He does not have Parkinsonism or PD. Given pt age I would not rec med for tremor. Some of his meds are aggravating tremor including inhalers and steroidss, but these are not modifiable. I discussed pt dx with pt daughter. JOANA Alexis MD History of Present Illness Reason for Consultation: concern for parkinson's Requesting Physician: Mehul Her MD Attending Physician: Mehul Her MD History of Present Illness Reagan is an 89 year old male with PMH - CAD status post CABG x 4, PCI with drug- eluting stents to the RCA and the circumflex, HLD, HTN, CKD IV. He presented to [facility] after worsening SOB and cough and treated for pneumonia vs bronchitis. He had an O2 sat of 90% and increased to 94% with treatment. He also had some diarr hea and vomiting. He because very weak and when trying to get out of a chair he fell x2. He was seen to have a tremor and neurology was consulted for evaluation. denies CP, SOB, abdominal pain one sided weakness, numbness tingling, N, V, new bowel or bladder issues. At baseline he walks with a walker according to because of a mechanical knee issue. Allergies Allergy/AdvReac Type Severity Reaction Status Date / Time niacin Allergy Unknown UNKNOWN Verified 08/07/19 16:55 Home Medications Home Medications Medication Instructions Recorded Confirmed Type acetaminophen [Tylenol Extra 500 mg PO BIDM PRN 08/07/19 08/07/19 History Strength] allopurinol [Zyloprim] 300 mg PO QAM 08/07/19 08/07/19 History aspirin 81 mg PO QAM 08/07/19 08/07/19 History atorvastatin [Lipitor] 80 mg PO QAM 08/07/19 08/07/19 History benzonatate [Tessalon Perles] 100 mg PO TID PRN 08/07/19 08/07/19 History budesonide [Pulmicort] 0.5 mg INHALATION BID PRN 08/07/19 08/07/19 History cefprozil 250 mg PO Q12H 08/07/19 08/07/19 History clobetasol [Cormax] 1 applic TOPICAL UD 08/07/19 08/07/19 History escitalopram oxalate [Lexapro] 5 mg PO QAM 08/07/19 08/07/19 History fluticasone propionate 2 spray INTRANASAL DAILY 08/07/19 08/07/19 History folic acid 400 mcg PO DAILY 08/07/19 08/07/19 History furosemide [Lasix] 20 mg PO QAM 08/07/19 08/07/19 History levalbuterol HCl [Xopenex] 1.25 mg INHALATION Q4H PRN 08/07/19 08/07/19 History loratadine [Claritin] 10 mg PO DAILY 08/07/19 08/07/19 History metoprolol succinate [Toprol XL] 50 mg PO QAM 08/07/19 08/07/19 History pantoprazole [Protonix] 40 mg PO BID 08/07/19 08/07/19 History prednisone 5 mg PO QAM 08/07/19 08/07/19 History prednisone See Rx Instructions .ROUTE .COMPLEX 08/07/19 08/07/19 History ranitidine HCl [Zantac] 150 mg PO BID 08/07/19 08/07/19 History terazosin 2 mg PO QAM 08/07/19 08/07/19 History tramadol [Ultram] 50 mg PO TID PRN 08/07/19 08/07/19 History vitamin B complex [B-Complex] 1 tab PO DAILY 08/07/19 08/07/19 History Patient History Medical History Sepsis (Acute) Aspiration pneumonia (Chronic) CAD, multiple vessel Chronic kidney disease, stage IV (severe) Dyslipidemia GERD without esophagitis History of melanoma in situ Hyperparathyroidism, secondary renal Hypertension Surgical History H/O percutaneous transluminal coronary angioplasty History of appendectomy S/P CABG x 4 Family History Mother , Age 74 Diabetes Heart disease Stroke Father , Age 72 Prostate cancer Sister Arthritis of both knees Arthritis of both feet Heart disease Sister No problems noted. Sister No problems noted. Brother No problems noted. Social History Preferred Language: Divehi Communication Ability: Effective Beliefs That Will Affect Care: Mosque Mosque Beliefs: ROMAN CATHOLIC Current Living Situation: Family Current Living Situation Comment: LIVES WITH DAUGHTERS Other Information That Helps Us Care for You: No Feels Safe at Home: Yes Safety Concerns: Feels Safe At This Time Smoking Status: Never smoker Hx Alcohol Use: Yes Alcohol type: beer Hx Substance Use: No Physical Exam Physical Exam: Physical Exam: Constitutional: appearance nourished, obese, dozes off during exam, very [id number] Ears, Nose, Mouth and Throat: mucous membranes moist, no injection and skin normal, eyes normal Cardiovascular: loud systolic murmer Respiratory: course breath sounds no wheezing Musculoskeletal: peripheral edema Skin: no stigmata of neurocutaneous disease noted and normal and intact Eyes: extraocular muscles intact (EOMI) and pupils equal, round and reactive to light (PERRL) NEUROLOGIC EXAMINATION: Mental status: Alert and interactive Oriented to person Speech fluent with no evidence of aphasia Cranial Nerves smile eye brow raise symmetric Reflexes: Deep tendon reflexes were symmetrical and graded 2/5. Sensory: intact to light and cool touch Coordination: finger to nose no bi pass, reaching tremor,no resting tremor Gait/Stance: Posture sitting in bedside chair, gait one assist with walker tandem orthopedic gait Motor: Negative for pronator drift of out stretched arms with eyes closed. 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 5/5 bilaterally hip flex 4+/5 bilaterally Results & Data Vital Signs (Past 12 Hours) Vital Signs Temp Pulse Resp BP Pulse Ox 08/10/19 13:02 92 H 18 96 08/10/19 07:19 36.5 C 90 16 156/83 H 94 08/10/19 07:16 71 18 95 Laboratory Results Abnormal lab results 08/10/19 08/10/19 Range/Units 06:43 06:43 RBC 2.55 L (4.7-6.1) M/uL Hgb 8.2 L (14.0-18.0) g/dL Hct 24.1 L (42-52) % RDW Std Deviation 55.8 H (36.4-46.3) fL RDW Coeff of Ted 16.3 H (11.5-14.5) % Immature Gran # (Auto) 0.03 H (0.00-0.02) K/uL [place]kins # (Auto) 0.61 H (0.11-0.59) K/uL Chloride 115 H (98-107) mmol/L BUN 44 H (7-18) mg/dl Creatinine 2.35 H D (0.6-1.4) mg/dl Calcium 7.7 L (8.5-10.1) mg/dl Diagnostic Findings CT head-No acute intracranial abnormality. Atrophy and microvascular ischemic changes. Acute right maxillary sinusitis. CT abd/pelvis-A large left rectus sheath hematoma. There is also small amount of hemorrhage extending into the extraperitoneal space within the lower anterior abdomen. TTE- EF 60-65%
--- NOTE | 2019-08-10 21:55 | Hospitalist Progress Note ---
Date of Service August 10, 2019 Assessment & Plan (1) Rectus sheath hematoma: Noted to have left rectus sheath hematoma on CAT scan measuring 8 x 4 cm Has been on aspirin for CAD with EMILIA Hemoglobin remains stable Doubt any increasing hematoma Showing the natural course of rectus sheath hematoma Hemoglobin is down to 8-9 from 10.6 on admission, likely dilut. from intravenous fluid Denies any more pain Will monitor CBC (2) Bronchitis: He has been complaining of cough likely secondary to bronchitis as an outpatient He received 2 doses of IM ceftriaxone as an outpatient Noted to have acute sinusitis on CT scan of the head Bibasilar densities secondary to atelectasis/pneumonitis Has been getting intravenous Zosyn, will switch to PO augmentin [employer] to rule out any dysphagia/aspiration - pt needs assistance, moist and minced diet (3) Elevated troponin: Mild elevation of troponin Likely secondary to abnormal renal function and demand ischemia,doubt any ACS Appreciate cardiology input and recommendation Cardiac status remains stable (4) Acute renal failure superimposed on chronic kidney disease: Noted to have a creatinine of 2.78 on admission with increasing BUN Getting cautious amount intravenous fluid Creatinine has been improving, currently back to baseline at 2.3 Creatinine has been worsening recently as per outpatient labs done Nephrology has been consulted for further recommendation (5) ASCVD (arteriosclerotic cardiovascular disease): Has history of CAD status post EMILIA placement Appreciate cardiology input and recommendation (6) Sinusitis: Has been on Zosyn for now Will switch to PO Augmentin Possible Parkinson disease/benign essential tremor Noted to have parkinsonian type movement in the emergency room Neurology evaluation as requested by the daughter, likely essential tremor, no new medications recommended, pt may follow up as outpt w/ neurology (7) DVT prophylaxis: SCDs for now No pharmacologic anticoagulation due to rectus sheath hematoma PT and OT evaluation for possible placement Discussed with the daughter in detail Subjective No acute events overnight. Patient is sitting in a chair, his present at the bedside. Denies any fevers, chills, nausea, vomiting, shortness of breath, chest pain, abdominal pain. Review of Systems Review of Systems: All systems reviewed and are unremarkable except as noted below Constitutional: + fatigue and + weakness Ear, Nose, Mouth, Throat: + hearing loss Respiratory: + cough and + dyspnea Neurologic: + generalized weakness Physical Exam Physical Exam: Sitting in chair comfortably Constitutional: well developed, well nourished and + ill appearing; no acute distress Eyes: PERRL, conjunctivae normal, anicteric sclerae ENMT: external ear and nose normal, oropharynx normal Neck: Supple Respiratory: normal respiratory effort; no respiratory distress and no labored breathing Auscultation: + diminished lung sounds and + crackles (mild b/l) Cardiovascular: RRR, no murmur, no edema Chest (Breasts): Chest: normal inspection of chest Gastrointestinal (Abdomen): Inspection/Auscultation: abdomen normal to inspection and normal bowel sounds; abdomen not distended Percussion/Palpation: abdomen soft; abdomen nontender - bruising noted adjoining the hematoma site Musculoskeletal: Head/Neck/Chest: normocephalic, head atraumatic and neck supple moves all extrem. spontaneously Skin: no rashes, warm and dry Neurologic: PERRL, EOMI, accommodation nl, no face palsy, no dysarthria no sensory loss noted Psychiatric: Orientation: alert and oriented x 3 Affect: euthymic affect Genitourinary: no CVA tenderness Lymphatic: no lymphedema and no cervical lymphadenopathy Results & Data Vital Signs (Past 12 Hours) Vital Signs Temp Pulse Resp BP Pulse Ox 08/10/19 18:48 88 16 97 08/10/19 14:59 36.4 C L 83 16 150/86 H 95 08/10/19 13:02 92 H 18 96 Laboratory Results 08/10/19 08/10/19 Range/Units 06:43 06:43 WBC 8.15 (4.8-10.8) K/uL RBC 2.55 L (4.7-6.1) M/uL Hgb 8.2 L (14.0-18.0) g/dL Hct 24.1 L (42-52) % MCV 94.5 (80-100) fL MCH 32.2 (25-34) pg MCHC 34.0 (32-36) g/dL RDW Std Deviation 55.8 H (36.4-46.3) fL RDW Coeff of Ted 16.3 H (11.5-14.5) % Plt Count 171 (130-400) K/uL MPV 9.6 (7.4-10.4) fL Immature Gran % (Auto) 0.4 % Neut % (Auto) 73.1 % Lymph % (Auto) 19.0 % Leslie % (Auto) 7.5 % Eos % (Auto) 0.0 % Baso % (Auto) 0.0 % Immature Gran # (Auto) 0.03 H (0.00-0.02) K/uL Neut # (Auto) 5.96 (1.4-6.5) K/uL Lymph # (Auto) 1.55 (1.2-3.4) K/uL Leslie # (Auto) 0.61 H (0.11-0.59) K/uL Eos # (Auto) 0.00 (0-0.5) K/uL Baso # (Auto) 0.00 (0-0.2) K/uL Sodium 143 (136-145) mmol/L Potassium 4.1 (3.5-5.1) mmol/L Chloride 115 H (98-107) mmol/L Carbon Dioxide 24 (21-32) mmol/L Anion Gap 4.0 (3-11) BUN 44 H (7-18) mg/dl Creatinine 2.35 H D (0.6-1.4) mg/dl Est Cr Clr Drug Dosing 21.6 ml/min Est GFR ( Amer) 27.6 Est GFR (Non-Af Amer) 23.8 BUN/Creatinine Ratio 18.6 (10-20) Glucose 95 (70-99) mg/dl Calcium 7.7 L (8.5-10.1) mg/dl Phosphorus 3.0 (2.5-4.9) mg/dl (1) Sinusitis Chronicity: unspecified Sinusitis location: unspecified location Qualified Code(s): J32.9 - Chronic sinusitis, unspecified (2) Rectus sheath hematoma Encounter type: initial encounter Qualified Code(s): S30.1XXA - Contusion of abdominal wall, initial encounter
[2019-08-11] MEDS: IPRATROPIUM BROMIDE NEB SOLN 0.02% 2.5 ML VIAL INH SCH ×4 (01:48→18:56)
[2019-08-11] MEDS: LEVALBUTEROL 1.25MG/0.5ML NEB NEB SCH ×4 (01:49→18:56)
[2019-08-11] MEDS: METOPROLOL SUCC 25MG EXT REL TAB PO SCH (01:58)
[2019-08-11 06:36] LABS: Creatinine Clr Calc Pharmacy 25.1 ml/min; Est GFR (African American) 33.1; Est GFR (Non-African American) 28.6
[2019-08-11] MEDS: AMOXICILLIN/CLAVULANATE 500 MG TAB PO SCH ×2 (09:35→17:15)
[2019-08-11] MEDS: LORATADINE 10 MG TAB PO SCH (09:35)
[2019-08-11] MEDS: ASPIRIN 81 MG ECTAB PO SCH (09:36)
[2019-08-11] MEDS: TERAZOSIN HCL 1 MG CAP PO SCH (09:36)
[2019-08-11] MEDS: FOLIC ACID 400 MCG TAB PO SCH (09:36)
[2019-08-11] MEDS: FLUTICASONE PROPIONATE NA SPR 16 GM BTL NAE SCH (09:36)
[2019-08-11] MEDS: SODIUM CHLORIDE 0.65% NA SOLN 45 ML (OCEAN) SCH ×4 (09:37→20:58)
[2019-08-11] MEDS: ATORVASTATIN 40 MG TAB PO SCH (09:37)
[2019-08-11] MEDS: ESCITALOPRAM OXALATE 10 MG TAB PO SCH (09:37)
[2019-08-11] MEDS: predniSONE 5 MG TAB PO SCH (09:38)
[2019-08-11] MEDS: ALLOPURINOL 300 MG TAB PO SCH (09:38)
[2019-08-11] MEDS: PANTOprazole 40 MG TAB PO SCH ×2 (09:38→20:58)
[2019-08-11] MEDS: BENZONATATE 100 MG CAPSULE PO SCH ×3 (09:38→20:58)
[2019-08-11] MEDS: VITAMIN B COMPLEX TAB PO SCH (09:38)
--- NOTE | 2019-08-11 09:40 | Hospitalist Progress Note ---
Date of Service August 11, 2019 Assessment & Plan (1) Rectus sheath hematoma: Noted to have left rectus sheath hematoma on CAT scan measuring 8 x 4 cm Has been on aspirin for CAD with EMILIA Hemoglobin remains essent.stable Doubt any increasing hematoma Showing the natural course of rectus sheath hematoma Hemoglobin is down to 8-9 from 10.6 on admission, likely dilut. from intravenous fluid Denies any more pain Will monitor CBC (2) Bronchitis: He has been complaining of cough likely secondary to bronchitis as an outpatient He received 2 doses of IM ceftriaxone as an outpatient Noted to have acute sinusitis on CT scan of the head Bibasilar densities secondary to atelectasis/pneumonitis Was started on IV Zosyn, switched to PO Augmentin today 08/11, and ISB, breathing treatments [employer] to rule out any dysphagia/aspiration - pt needs assistance, moist and minced diet (3) Elevated troponin: Mild elevation of troponin Likely secondary to abnormal renal function and demand ischemia,doubt any ACS Appreciate cardiology input and recommendation Cardiac status remains stable (4) Acute renal failure superimposed on chronic kidney disease: Noted to have a creatinine of 2.78 on admission with increasing BUN Getting cautious amount intravenous fluid Creatinine has been improving, currently back to baseline Creatinine has been worsening recently as per outpatient labs done Nephrology has been consulted for further recommendation (5) ASCVD (arteriosclerotic cardiovascular disease): Has history of CAD status post EMILIA placement Appreciate cardiology input and recommendation (6) Sinusitis: Has been on Zosyn for now Will switch to PO Augmentin today Possible Parkinson disease/benign essential tremor Noted to have parkinsonian type movement in the emergency room Neurology evaluation as requested by the daughter, likely essential tremor, no new medications recommended, pt may follow up as outpt w/ neurology (7) DVT prophylaxis: SCDs for now No pharmacologic anticoagulation due to rectus sheath hematoma PT and OT evaluation for possible placement Discussed with the daughter in detail Subjective No acute events overnight. Patient is lying in bed, worked with PT and felt worn out. Previously however was sitting in the chair and ate all of his breakfast. Denies any fevers, chills, chest pain, shortness of breath. He says he gets little winded when he is walking around. Denies any abdominal pain, nausea, vomiting. Discussed with Dr. Hernandes, renal dietitian, this morning his fluid status. IVF were already stopped however he still has some mild crackles bibasilar, will do light diuresis. Switch from IV Zosyn to p.o. Augmentin. Review of Systems Constitutional: + fatigue; no fever and no chills Respiratory: + dyspnea on exertion Cardiovascular: no chest pain and no palpitations Gastrointestinal: no abdominal pain, no nausea and no vomiting Physical Exam Constitutional: well developed, well nourished and + ill appearing; no acute distress Eyes: PERRL, conjunctivae normal, anicteric sclerae ENMT: external ear and nose normal, oropharynx normal Neck: supple Respiratory: normal respiratory effort; no respiratory distress and no labored breathing Auscultation: + diminished lung sounds and + crackles (mild b/l) Cardiovascular: RRR, no murmur, no edema Chest (Breasts): Chest: normal inspection of chest Gastrointestinal (Abdomen): Inspection/Auscultation: abdomen normal to inspection and normal bowel sounds; abdomen not distended Percussion/Palpation: abdomen soft; abdomen nontender Musculoskeletal: Head/Neck/Chest: normocephalic, head atraumatic and neck supple Skin: no rashes, warm and dry Neurologic: PERRL, EOMI, accommodation nl, no face palsy, no dysarthria Psychiatric: Orientation: alert and oriented x 3 Affect: euthymic affect Genitourinary: no CVA tenderness Lymphatic: no lymphedema and no cervical lymphadenopathy Results & Data Vital Signs (Past 12 Hours) Vital Signs Temp Pulse Resp BP BP Pulse Ox 08/11/19 07:15 81 18 94 08/11/19 07:09 36.4 C L 88 18 145/73 H 96 08/11/19 03:56 76 158/84 H 08/11/19 03:53 158/84 H 08/11/19 01:49 82 16 95 08/11/19 00:22 36.3 C L 85 20 183/105 H 176/84 H 95 Laboratory Results 08/11/19 08/11/19 08/07/19 Range/Units 05:39 05:34 21:59 WBC 6.97 (4.8-10.8) K/uL RBC 2.47 L (4.7-6.1) M/uL Hgb 7.8 L (14.0-18.0) g/dL Hct 23.9 L (42-52) % MCV 96.8 (80-100) fL MCH 31.6 (25-34) pg MCHC 32.6 (32-36) g/dL RDW Std Deviation 58.1 H (36.4-46.3) fL RDW Coeff of Ted 16.5 H (11.5-14.5) % Plt Count 190 (130-400) K/uL MPV 10.6 H (7.4-10.4) fL Creatinine 2.02 H D (0.6-1.4) mg/dl Est Cr Clr Drug Dosing 25.1 ml/min Est GFR ( Amer) 33.1 Est GFR (Non-Af Amer) 28.6 Crossmatch See Detail Medications Administered Current Inpatient Medications Acetaminophen (Tylenol) 650 mg PO Q4H PRN PRN Reason: Pain or Fever Stop: 09/06/19 20:14 Acetaminophen (Tylenol) 500 mg PO BIDM PRN PRN Reason: Pain Stop: 09/07/19 18:08 Al Hydrox/Mg Hydrox/Simethicone (Maalox) 15 ml PO Q4H PRN PRN Reason: Dyspepsia Stop: 09/06/19 20:14 Allopurinol (Zyloprim) 300 mg PO [facility] Stop: 09/07/19 08:59 Last Admin: 08/11/19 09:38 Dose: 300 mg Documented by: Amoxicillin/Clavulanate Potassium (Augmentin 500mg) 1 tab PO BIDM [facility]; Protocol Stop: 08/18/19 07:59 Last Admin: 08/11/19 09:35 Dose: 1 tab Documented by: Aspirin (Ecotrin Ectab) 81 mg PO [facility] Stop: 09/07/19 08:59 Last Admin: 08/11/19 09:36 Dose: 81 mg Documented by: Atorvastatin Calcium (Lipitor) 80 mg PO [facility] Stop: 09/07/19 08:59 Last Admin: 08/11/19 09:37 Dose: 80 mg Documented by: Benzonatate (Tessalon Perle) 100 mg PO TID [facility] Stop: 09/06/19 20:59 Last Admin: 08/11/19 09:38 Dose: 100 mg Documented by: Benzonatate (Tessalon Perle) 100 mg PO TID PRN PRN Reason: Cough Stop: 09/07/19 18:08 Budesonide (Pulmicort Respules) 0.5 mg INH BID PRN PRN Reason: Shortness Of Breath Or Wheezin Stop: 09/06/19 20:14 Escitalopram Oxalate (Lexapro Tab) 5 mg PO QAM [facility] Stop: 09/07/19 08:59 Last Admin: 08/11/19 09:37 Dose: 5 mg Documented by: Fluticasone Propionate (Flonase) 2 sprays ALLY DAILY [facility] Stop: 09/07/19 08:59 Last Admin: 08/11/19 09:36 Dose: 2 sprays Documented by: Folic Acid (Folvite) 400 mcg PO DAILY [facility] Stop: 09/07/19 08:59 Last Admin: 08/11/19 09:36 Dose: 400 mcg Documented by: Sodium Chloride (Nss) 250 mls @ 15 mls/hr IV .[id number] PRN PRN Reason: For Transfusion Stop: 09/06/19 20:14 Furosemide 20 mg/ Syringe 2 mls @ 4 mls/min IV ONE ONE Stop: 08/11/19 09:39 Ipratropium [place] (Atrovent 0.02% 0.5mg/2.5ml) 0.5 mg INH Q6R [facility] Stop: 09/07/19 00:59 Last Admin: 08/11/19 07:15 Dose: 0.5 mg Documented by: Levalbuterol HCl (Xopenex 1.25mg/0.5ml Neb) 1.25 mg NEB Q6R [facility] Stop: 09/07/19 00:59 Last Admin: 08/11/19 07:14 Dose: 1.25 mg Documented by: Levalbuterol HCl (Xopenex 1.25mg/3ml Neb) 1.25 mg INH Q4H PRN PRN Reason: Wheezing Stop: 09/06/19 20:14 Loratadine (Claritin) 10 mg PO DAILY [facility] Stop: 09/08/19 08:59 Last Admin: 08/11/19 09:35 Dose: 10 mg Documented by: Metoprolol Succinate (Toprol Xl) 75 mg PO QAM [facility] Stop: 09/10/19 00:59 Last Admin: 08/11/19 01:58 Dose: 75 mg Documented by: Miscellaneous (Order Awaiting Action) 1 ea N/A QS [facility] Stop: 09/08/19 00:00 Last Admin: 08/10/19 23:42 Dose: Not Given Documented by: Ondansetron HCl (Zofran) 4 mg IV Q6H PRN PRN Reason: Nausea Stop: 09/06/19 20:14 Pantoprazole Sodium (Protonix) 40 mg PO BID [facility] Stop: 09/06/19 20:59 Last Admin: 08/11/19 09:38 Dose: 40 mg Documented by: Polyethylene Glycol (Miralax Powder Packet) 17 gm PO DAILY PRN PRN Reason: Constipation Stop: 09/06/19 20:14 Prednisone (Prednisone) 5 mg PO QAM [facility] Stop: 09/08/19 08:59 Last Admin: 08/11/19 09:38 Dose: 5 mg Documented by: Sodium Chloride ([place] Nasal) 3 sprays NA QID [facility] Stop: 09/07/19 08:59 Last Admin: 08/11/19 09:37 Dose: 3 sprays Documented by: Terazosin HCl (Hytrin) 2 mg PO QAM [facility] Stop: 09/07/19 08:59 Last Admin: 08/11/19 09:36 Dose: 2 mg Documented by: Vitamin B Complex (Vitamin B Complex) 1 tab PO DAILY [facility] Stop: 09/07/19 08:59 Last Admin: 08/11/19 09:38 Dose: 1 tab Documented by: (1) Sinusitis Chronicity: unspecified Sinusitis location: unspecified location Qualified Code(s): J32.9 - Chronic sinusitis, unspecified (2) Rectus sheath hematoma Encounter type: initial encounter Qualified Code(s): S30.1XXA - Contusion of abdominal wall, initial encounter
[2019-08-11] MEDS ORDERED: FUROSEMIDE 20 MG in SYRINGE 0 ML IV ONE (10:05)
[2019-08-11] MEDS: POLYETHYLENE (MIRALAX) 17 GM PACK PO PRN (13:49)
[2019-08-11 15:03] LABS: Hematocrit (blood only) 23.9 % (42-52); Hemoglobin 7.8 g/dL (14.0-18.0); Mean Corpuscular Hemoglobin 31.6 pg (25-34); Mean Corpuscular Hgb Conc 32.6 g/dL (32-36); Mean Corpuscular Volume 96.8 fL (80-100); Mean Platelet Volume 10.6 fL (7.4-10.4); Platelet Count 190 K/uL (130-400); RDW Coefficient of Variation 16.5 % (11.5-14.5); RDW Standard Deviation 58.1 fL (36.4-46.3); Red Blood Count 2.47 M/uL (4.7-6.1); White Blood Count 6.97 K/uL (4.8-10.8)
--- NOTE | 2019-08-11 15:43 | Nephrology Progress Note ---
Date of Service August 11, 2019 Assessment & Plan (1) Chronic kidney disease, unspecified: baseline creatinine 2.3-2.5 in 2019 as OP w/ some lability and w/ 1.5 gm daily proteinuria most recently. While he had TAYLOR on presentation, this has since resolved w/ gentle hydration. his urine sediment on presentation was concentrated but bland apart from expected dipstick proteinuria. his chem istries have been acceptable apart from progressive hyperchloremia, likely from NS -daily bmp while in house -at this point w/ HTN would stop NS -given crackles, consider low dose IV lasix or resume OP po >>will sign off; recommend bmp at PCP f/u visit; does not need sooner f/u in CKD clinic than routinely planned unless TAYLOR recurs (2) HTN (hypertension): elevated > should w/ stopping NS have acceptable control in house for pt his age and comorbidities -cont BB, terazosin -resume lasix (3) Acute on chronic anemia: notable that despite advanced CKD this pt is generally as OP not anemic or only mildly so. suspect the acute worsening is d/t rectal sheath hematoma. -monitor hgb daily -transfuse if <7 or sx Subjective seen on rounds thsi am at 0825; no c/o pain; denies sob; appetite borderline; denies voiding issues or edema Review of Systems Review of Systems: All systems reviewed & are unremarkable except as noted in HPI & below Physical Exam Constitutional: well developed and well nourished on RA, oriented to self and place Eyes: EOM intact bilaterally; no EOM movement deficit ENMT: Ears: + hearing impairment (stable chronic); no external ear abnormality Nose: no external nose abnormality Mouth: + dry oral mucous membranes Neck: no nuchal rigidity Respiratory: normal respiratory effort Auscultation: + diminished lung sounds and + crackles (diffuse BL) Cardiovascular: RRR, no murmur, no edema Gastrointestinal (Abdomen): Inspection/Auscultation: + abdomen distended and normal bowel sounds Percussion/Palpation: abdomen soft; abdomen nontender Musculoskeletal: Extremities: strength 5/5 throughout Skin: no rashes, warm and dry Trauma: + hematoma (extensive L flank/gluteal region) Psychiatric: Orientation: alert and oriented x 3 Affect: + flat affect Mood: + depressed mood Results & Data Vital Signs (Past 12 Hours) Vital Signs Temp Pulse Resp BP BP Pulse Ox 08/11/19 15:13 36.8 C 83 18 126/77 91 08/11/19 13:03 84 16 94 08/11/19 07:15 81 18 94 08/11/19 07:09 36.4 C L 88 18 145/73 H 96 08/11/19 03:56 76 158/84 H 08/11/19 03:53 158/84 H Laboratory Results 08/11/19 05:39 08/11/19 05:34 (1) Chronic kidney disease, unspecified Chronic kidney disease stage: stage 4 (severe) Qualified Code(s): N18.4 - Chronic kidney disease, stage 4 (severe) (2) HTN (hypertension) Hypertension type: essential hypertension Qualified Code(s): I10 - Essential (primary) hypertension
[2019-08-11] MEDS ORDERED: LIDOCAINE 2% JELLY 5 ML TUBE EXT PRN (21:38)
[2019-08-12] MEDS: LEVALBUTEROL 1.25MG/0.5ML NEB NEB SCH ×4 (00:59→18:55)
[2019-08-12] MEDS: IPRATROPIUM BROMIDE NEB SOLN 0.02% 2.5 ML VIAL INH SCH ×4 (00:59→18:55)
[2019-08-12 05:52] LABS: Hematocrit (blood only) 24.3 % (42-52); Hemoglobin 8.2 g/dL (14.0-18.0); Mean Corpuscular Hemoglobin 32.2 pg (25-34); Mean Corpuscular Hgb Conc 33.7 g/dL (32-36); Mean Corpuscular Volume 95.3 fL (80-100); Mean Platelet Volume 10.1 fL (7.4-10.4); Platelet Count 197 K/uL (130-400); RDW Coefficient of Variation 16.4 % (11.5-14.5); RDW Standard Deviation 56.8 fL (36.4-46.3); Red Blood Count 2.55 M/uL (4.7-6.1); White Blood Count 7.24 K/uL (4.8-10.8)
[2019-08-12 06:30] LABS: BUN Creatinine Ratio 16.9 (10-20); Calcium 8.3 mg/dl (8.5-10.1); Creatinine Clr Calc Pharmacy 24.6 ml/min; Est GFR (African American) 32.4; Est GFR (Non-African American) 27.9; Potassium 4.2 mmol/L (3.5-5.1)
[2019-08-12] MEDS: AMOXICILLIN/CLAVULANATE 500 MG TAB PO SCH ×2 (09:40→16:36)
[2019-08-12] MEDS: ASPIRIN 81 MG ECTAB PO SCH (09:41)
[2019-08-12] MEDS: LORATADINE 10 MG TAB PO SCH (09:41)
[2019-08-12] MEDS: FLUTICASONE PROPIONATE NA SPR 16 GM BTL NAE SCH (09:41)
[2019-08-12] MEDS: TERAZOSIN HCL 1 MG CAP PO SCH (09:42)
[2019-08-12] MEDS: ESCITALOPRAM OXALATE 10 MG TAB PO SCH (09:42)
[2019-08-12] MEDS: SODIUM CHLORIDE 0.65% NA SOLN 45 ML (OCEAN) SCH ×4 (09:42→20:08)
[2019-08-12] MEDS: FOLIC ACID 400 MCG TAB PO SCH (09:42)
[2019-08-12] MEDS: ATORVASTATIN 40 MG TAB PO SCH (09:42)
[2019-08-12] MEDS: FUROSEMIDE 20 MG TAB PO SCH (09:42)
[2019-08-12] MEDS: predniSONE 5 MG TAB PO SCH (09:43)
[2019-08-12] MEDS: VITAMIN B COMPLEX TAB PO SCH (09:44)
[2019-08-12] MEDS: BENZONATATE 100 MG CAPSULE PO SCH ×3 (09:44→20:09)
[2019-08-12] MEDS: PANTOprazole 40 MG TAB PO SCH ×2 (09:44→20:09)
[2019-08-12] MEDS: METOPROLOL SUCC 25MG EXT REL TAB PO SCH (09:44)
[2019-08-12] MEDS: ALLOPURINOL 300 MG TAB PO SCH (09:44)
--- NOTE | 2019-08-12 12:19 | Hospitalist Progress Note ---
Date of Service August 12, 2019 Assessment & Plan (1) Rectus sheath hematoma: Noted to have left rectus sheath hematoma on CAT scan measuring 8 x 4 cm Has been on aspirin for CAD with EMILIA Hemoglobin remains essent.stable Doubt any increasing hematoma Showing the natural course of rectus sheath hematoma, ecchymosis visible below umbilicus and spreading down to pt's groin Hemoglobin is down to 8-9 from 10.6 on admission, likely dilut. from intravenous fluid Denies any more pain Will monitor CBC Penile ecchymosis Secondary to rectus sheath hematoma, spreading down the patient's groin Urology was consulted, recommend scrotal support, ice packs as needed (2) Bronchitis: He has been complaining of cough likely secondary to sinobronchitis as an outpatient He received 2 doses of IM ceftriaxone as an outpatient Noted to have acute sinusitis on CT scan of the head Bibasilar densities secondary to atelectasis/pneumonitis Was started on IV Zosyn, switched to PO Augmentin today 08/11, and ISB, breathing treatments [employer] to rule out any dysphagia/aspiration - pt needs assistance, moist and minced diet (3) Elevated troponin: Mild elevation of troponin Likely secondary to abnormal renal function and demand ischemia,doubt any ACS Appreciate cardiology input and recommendation Cardiac status remains stable (4) Acute renal failure superimposed on chronic kidney disease: Noted to have a creatinine of 2.78 on admission with increasing BUN Getting cautious amount intravenous fluid Creatinine has been improving, currently back to baseline Creatinine has been worsening recently as per outpatient labs done Nephrology has been consulted for further recommendation (5) ASCVD (arteriosclerotic cardiovascular disease): Has history of CAD status post EMILIA placement Appreciate cardiology input and recommendation (6) Sinusitis: Has been on Zosyn for now Will switch to PO Augmentin today Possible Parkinson disease/benign essential tremor Noted to have parkinsonian type movement in the emergency room Neurology evaluation as requested by the daughter, likely essential tremor, no new medications recommended, pt may follow up as outpt w/ neurology (7) DVT prophylaxis: SCDs for now No pharmacologic anticoagulation due to rectus sheath hematoma PT and OT evaluation for possible placement Discussed with the daughter in detail Subjective No acute events overnight. Patient sitting up in the bed, eating breakfast. He states he feels well, denies any fevers, chills, chest pain, shortness of breath, abdominal pain, nausea or vomiting. His ISB is placed on the table and patient has been using it. Review of Systems Review of Systems: All systems reviewed and are unremarkable except as noted below Constitutional: + fatigue; no fever and no chills Ear, Nose, Mouth, Throat: + hearing loss Respiratory: + dyspnea on exertion Gastrointestinal: no abdominal pain, no nausea and no vomiting Neurologic: + generalized weakness Physical Exam Physical Exam: Elderly male sitting up in bed, eating breakfast Constitutional: well developed and well nourished; no acute distress Eyes: PERRL, conjunctivae normal, anicteric sclerae ENMT: external ear and nose normal, oropharynx normal Neck: supple Respiratory: normal respiratory effort; no respiratory distress and no labored breathing Auscultation: + diminished lung sounds (at bases b/l otherwise clear to auscultation) and + crackles (mild b/l) Cardiovascular: RRR, no murmur, no edema Chest (Breasts): Chest: normal inspection of chest Gastrointestinal (Abdomen): Inspection/Auscultation: abdomen normal to inspection (Except ecchymosis below his umbilicus spreading down to the groin area) and normal bowel sounds; abdomen not distended Percussion/Palpation: abdomen soft; abdomen nontender Musculoskeletal: Head/Neck/Chest: normocephalic, head atraumatic and neck supple Extremities: extremities normal to inspection Skin: no rashes, warm and dry penile ecchymosis Neurologic: PERRL, EOMI, accommodation nl, no face palsy, no dysarthria No sensory was noted Psychiatric: Orientation: alert and oriented x 3 Affect: euthymic affect Genitourinary: + penis abnormality (penile ecchymosis); no CVA tenderness Lymphatic: no lymphedema and no cervical lymphadenopathy Results & Data Vital Signs (Past 12 Hours) Vital Signs Temp Pulse Resp BP BP Pulse Ox 08/12/19 09:36 104 H 109/65 95 08/12/19 07:08 75 16 94 08/12/19 07:00 36.4 C L 75 20 137/79 94 08/12/19 00:59 81 18 95 Laboratory Results 08/12/19 08/12/19 08/11/19 Range/Units 05:26 05:26 05:39 WBC 7.24 6.97 (4.8-10.8) K/uL RBC 2.55 L 2.47 L (4.7-6.1) M/uL Hgb 8.2 L 7.8 L (14.0-18.0) g/dL Hct 24.3 L 23.9 L (42-52) % MCV 95.3 96.8 (80-100) fL MCH 32.2 31.6 (25-34) pg MCHC 33.7 32.6 (32-36) g/dL RDW Std Deviation 56.8 H 58.1 H (36.4-46.3) fL RDW Coeff of Ted 16.4 H 16.5 H (11.5-14.5) % Plt Count 197 190 (130-400) K/uL MPV 10.1 10.6 H (7.4-10.4) fL Sodium 140 (136-145) mmol/L Potassium 4.2 (3.5-5.1) mmol/L Chloride 110 H (98-107) mmol/L Carbon Dioxide 28 (21-32) mmol/L Anion Gap 3.0 (3-11) BUN 35 H (7-18) mg/dl Creatinine 2.06 H (0.6-1.4) mg/dl Est Cr Clr Drug Dosing 24.6 ml/min Est GFR ( Amer) 32.4 Est GFR (Non-Af Amer) 27.9 BUN/Creatinine Ratio 16.9 (10-20) Glucose 85 (70-99) mg/dl Calcium 8.3 L (8.5-10.1) mg/dl Magnesium 2.0 (1.8-2.4) mg/dl Medications Administered Current Inpatient Medications Acetaminophen (Tylenol) 650 mg PO Q4H PRN PRN Reason: Pain or Fever Stop: 09/06/19 20:14 Acetaminophen (Tylenol) 500 mg PO BIDM PRN PRN Reason: Pain Stop: 09/07/19 18:08 Al Hydrox/Mg Hydrox/Simethicone (Maalox) 15 ml PO Q4H PRN PRN Reason: Dyspepsia Stop: 09/06/19 20:14 Allopurinol (Zyloprim) 300 mg PO QAM [facility] Stop: 09/07/19 08:59 Last Admin: 08/12/19 09:44 Dose: 300 mg Documented by: Amoxicillin/Clavulanate Potassium (Augmentin 500mg) 1 tab PO BIDM [facility]; Protocol Stop: 08/18/19 07:59 Last Admin: 08/12/19 09:40 Dose: 1 tab Documented by: Aspirin (Ecotrin Ectab) 81 mg PO QAM [facility] Stop: 09/07/19 08:59 Last Admin: 08/12/19 09:41 Dose: 81 mg Documented by: Atorvastatin Calcium (Lipitor) 80 mg PO QAM [facility] Stop: 09/07/19 08:59 Last Admin: 08/12/19 09:42 Dose: 80 mg Documented by: Benzonatate (Tessalon Perle) 100 mg PO TID [facility] Stop: 09/06/19 20:59 Last Admin: 08/12/19 09:44 Dose: 100 mg Documented by: Benzonatate (Tessalon Perle) 100 mg PO TID PRN PRN Reason: Cough Stop: 09/07/19 18:08 Budesonide (Pulmicort Respules) 0.5 mg INH BID PRN PRN Reason: Shortness Of Breath Or Wheezin Stop: 09/06/19 20:14 Escitalopram Oxalate (Lexapro Tab) 5 mg PO QAM [facility] Stop: 09/07/19 08:59 Last Admin: 08/12/19 09:42 Dose: 5 mg Documented by: Fluticasone Propionate (Flonase) 2 sprays ALLY DAILY [facility] Stop: 09/07/19 08:59 Last Admin: 08/12/19 09:41 Dose: 2 sprays Documented by: Folic Acid (Folvite) 400 mcg PO DAILY [facility] Stop: 09/07/19 08:59 Last Admin: 08/12/19 09:42 Dose: 400 mcg Documented by: Furosemide (Lasix) 20 mg PO QAM [facility] Stop: 09/11/19 08:59 Last Admin: 08/12/19 09:42 Dose: 20 mg Documented by: Sodium Chloride (Nss) 250 mls @ 15 mls/hr IV .[id number] PRN PRN Reason: For Transfusion Stop: 09/06/19 20:14 Ipratropium [place] (Atrovent 0.02% 0.5mg/2.5ml) 0.5 mg INH Q6R [facility] Stop: 09/07/19 00:59 Last Admin: 08/12/19 07:08 Dose: 0.5 mg Documented by: Levalbuterol HCl (Xopenex 1.25mg/0.5ml Neb) 1.25 mg NEB Q6R [facility] Stop: 09/07/19 00:59 Last Admin: 08/12/19 07:08 Dose: 1.25 mg Documented by: Levalbuterol HCl (Xopenex 1.25mg/3ml Neb) 1.25 mg INH Q4H PRN PRN Reason: Wheezing Stop: 09/06/19 20:14 Lidocaine HCl (Xylocaine 2% Jelly) 1 ml EXT Q6H PRN PRN Reason: Mild Pain Stop: 09/10/19 21:37 Loratadine (Claritin) 10 mg PO DAILY [facility] Stop: 09/08/19 08:59 Last Admin: 08/12/19 09:41 Dose: 10 mg Documented by: Metoprolol Succinate (Toprol Xl) 75 mg PO QAM [facility] Stop: 09/10/19 00:59 Last Admin: 08/12/19 09:44 Dose: 75 mg Documented by: Ondansetron HCl (Zofran) 4 mg IV Q6H PRN PRN Reason: Nausea Stop: 09/06/19 20:14 Pantoprazole Sodium (Protonix) 40 mg PO BID [facility] Stop: 09/06/19 20:59 Last Admin: 08/12/19 09:44 Dose: 40 mg Documented by: Polyethylene Glycol (Miralax Powder Packet) 17 gm PO DAILY PRN PRN Reason: Constipation Stop: 09/06/19 20:14 Last Admin: 08/11/19 13:49 Dose: 17 gm Documented by: Prednisone (Prednisone) 5 mg PO QAM [facility] Stop: 09/08/19 08:59 Last Admin: 08/12/19 09:43 Dose: 5 mg Documented by: Sodium Chloride ([place] Nasal) 3 sprays NA QID [facility] Stop: 09/07/19 08:59 Last Admin: 08/12/19 09:42 Dose: 3 sprays Documented by: Terazosin HCl (Hytrin) 2 mg PO QAM [facility] Stop: 09/07/19 08:59 Last Admin: 08/12/19 09:42 Dose: 2 mg Documented by: Vitamin B Complex (Vitamin B Complex) 1 tab PO DAILY [facility] Stop: 09/07/19 08:59 Last Admin: 08/12/19 09:44 Dose: 1 tab Documented by: (1) Sinusitis Chronicity: unspecified Sinusitis location: unspecified location Qualified Code(s): J32.9 - Chronic sinusitis, unspecified (2) Rectus sheath hematoma Encounter type: initial encounter Qualified Code(s): S30.1XXA - Contusion of abdominal wall, initial encounter
[2019-08-12] MEDS: POLYETHYLENE (MIRALAX) 17 GM PACK PO PRN (12:36)
--- NOTE | 2019-08-12 15:34 | Urology Consultation ---
Date of Consultation August 12, 2019 Assessment & Plan (1) Scrotal bruise: A/P 89-year-old male with scrotal ecchymosis status post fall and large rectus sheath hematoma. Findings are not overly surprising considering the dependent position of the scrotum with respect to the patient's hematoma as well as the compliant nature of the skin and tissues in the area. No other evidence on examination or imaging of a primary active process is appreciated. Conservative management and avoidance of further risk factors for bleeding and fall should suffice. Scrotal support and ice packs can be used on an as needed basis. I would expect resolution at a slightly delayed pace compared to the remainder of the patient's hematoma. No acute surgical intervention should be required. Patient can follow-up electively should the resolution of his genital findings deviate significantly from the expected course. Thank you for allowing us to participate in this patient's acute care. Please recall our service as needed for any further questions or concerns. History of Present Illness Reason for Consultation: Scrotal and penile ecchymosis and edema. Attending Physician: Mehul Her MD History of Present Illness Patient is an 89-year-old male, demented, disoriented to time and place admitted due to numerous comorbidities including fall in the context of anticoagulation associated with a rectus sheath hematoma and the need for transfusion. Patient is a poor historian due to his neurologic condition and the majority of the history is obtained from the chart. CT scan imaging demonstrating a left rectus sheath hematoma tracking in a dependent position into the lower abdominal subcutaneous tissue is reviewed. Renal atrophy without hydronephrosis is appreciated. Urology consultation is requested due to genital edema and ecchymosis. Patient denies any discomfort associated with his issues. Per nu rsing staff swelling and bruising has improved since it was initially noted. Allergies Allergy/AdvReac Type Severity Reaction Status Date / Time niacin Allergy Unknown UNKNOWN Verified 08/07/19 16:55 Home Medications Home Medications Medication Instructions Recorded Confirmed Type acetaminophen [Tylenol Extra 500 mg PO BIDM PRN 08/07/19 08/07/19 History Strength] allopurinol [Zyloprim] 300 mg PO QAM 08/07/19 08/07/19 History aspirin 81 mg PO QAM 08/07/19 08/07/19 History atorvastatin [Lipitor] 80 mg PO QAM 08/07/19 08/07/19 History benzonatate [Tessalon Perles] 100 mg PO TID PRN 08/07/19 08/07/19 History budesonide [Pulmicort] 0.5 mg INHALATION BID PRN 08/07/19 08/07/19 History cefprozil 250 mg PO Q12H 08/07/19 08/07/19 History clobetasol [Cormax] 1 applic TOPICAL UD 08/07/19 08/07/19 History escitalopram oxalate [Lexapro] 5 mg PO QAM 08/07/19 08/07/19 History fluticasone propionate 2 spray INTRANASAL DAILY 08/07/19 08/07/19 History folic acid 400 mcg PO DAILY 08/07/19 08/07/19 History furosemide [Lasix] 20 mg PO QAM 08/07/19 08/07/19 History levalbuterol HCl [Xopenex] 1.25 mg INHALATION Q4H PRN 08/07/19 08/07/19 History loratadine [Claritin] 10 mg PO DAILY 08/07/19 08/07/19 History metoprolol succinate [Toprol XL] 50 mg PO QAM 08/07/19 08/07/19 History pantoprazole [Protonix] 40 mg PO BID 08/07/19 08/07/19 History prednisone 5 mg PO QAM 08/07/19 08/07/19 History prednisone See Rx Instructions .ROUTE .COMPLEX 08/07/19 08/07/19 History ranitidine HCl [Zantac] 150 mg PO BID 08/07/19 08/07/19 History terazosin 2 mg PO QAM 08/07/19 08/07/19 History tramadol [Ultram] 50 mg PO TID PRN 08/07/19 08/07/19 History vitamin B complex [B-Complex] 1 tab PO DAILY 08/07/19 08/07/19 History Patient History Medical History Sepsis (Acute) Aspiration pneumonia (Chronic) CAD, multiple vessel Chronic kidney disease, stage IV (severe) Dyslipidemia GERD without esophagitis History of melanoma in situ Hyperparathyroidism, secondary renal Hypertension Surgical History H/O percutaneous transluminal coronary angioplasty History of appendectomy S/P CABG x 4 Family History Mother , Age 74 Diabetes Heart disease Stroke Father , Age 72 Prostate cancer Sister Arthritis of both knees Arthritis of both feet Heart disease Sister No problems noted. Sister No problems noted. Brother No problems noted. Social History Preferred Language: Citizen Of [place] Communication Ability: Effective Beliefs That Will Affect Care: Spiritism Spiritism Beliefs: ROMAN CATHOLIC Current Living Situation: Family Current Living Situation Comment: LIVES WITH DAUGHTERS Other Information That Helps Us Care for You: No Feels Safe at Home: Yes Safety Concerns: Feels Safe At This Time Smoking Status: Never smoker Hx Alcohol Use: Yes Alcohol type: beer Hx Substance Use: No Review of Systems Constitutional: no fever and no chills Eyes: no diplopia Ear, Nose, Mouth, Throat: no ear pain Respiratory: no hemoptysis and no wheezing Gastrointestinal: Ecchymosis consistent with CT findings appreciated Integumentary: no acne and no boil Neurologic: no paralysis Psychiatric: + confusion Hematologic / Lymphatic: + easy bleeding Allergy / Immunological: no tongue swelling Physical Exam Constitutional: + obese; no acute distress Eyes: no scleral abnormality ENMT: Ears: no external ear abnormality Neck: trachea midline; no anterior neck swelling Respiratory: no respiratory distress and does not use accessory muscles Gastrointestinal (Abdomen): Inspection/Auscultation: abdomen not distended Percussion/Palpation: abdomen soft; no guarding Lower abdominal bruising present Skin: Trauma: + hematoma Neurologic: awake Psychiatric: Orientation: oriented to person and cooperative; + not oriented to place and + not oriented to time Genitourinary: + scrotal ecchymosis and + scrotal swelling Edematous uncircumcised phallus without phimosis, normal glans meatus. Mild edema and ecchymosis of the scrotum with palpable testes bilaterally. No evidence of skin breakdown or cellulitis. Results & Data Vital Signs (Past 12 Hours) Vital Signs Temp Pulse Resp BP BP Pulse Ox 08/12/19 14:55 36.6 C 85 20 119/71 94 08/12/19 13:27 77 20 92 08/12/19 09:36 104 H 109/65 95 08/12/19 07:08 75 16 94 08/12/19 07:00 36.4 C L 75 20 137/79 94 Laboratory Results Laboratory Results - last 48 hr 08/07/19 08/11/19 08/11/19 21:59 05:34 05:39 WBC 6.97 RBC 2.47 L Hgb 7.8 L Hct 23.9 L MCV 96.8 MCH 31.6 MCHC 32.6 RDW Std Deviation 58.1 H RDW Coeff of Ted 16.5 H Plt Count 190 MPV 10.6 H Sodium Potassium Chloride Carbon Dioxide Anion Gap BUN Creatinine 2.02 H D Est Cr Clr Drug Dosing 25.1 Est GFR ( Amer) 33.1 Est GFR (Non-Af Amer) 28.6 BUN/Creatinine Ratio Glucose Calcium Magnesium Crossmatch See Detail 08/12/19 08/12/19 05:26 05:26 WBC 7.24 RBC 2.55 L Hgb 8.2 L Hct 24.3 L MCV 95.3 MCH 32.2 MCHC 33.7 RDW Std Deviation 56.8 H RDW Coeff of Ted 16.4 H Plt Count 197 MPV 10.1 Sodium 140 Potassium 4.2 Chloride 110 H Carbon Dioxide 28 Anion Gap 3.0 BUN 35 H Creatinine 2.06 H Est Cr Clr Drug Dosing 24.6 Est GFR ( Amer) 32.4 Est GFR (Non-Af Amer) 27.9 BUN/Creatinine Ratio 16.9 Glucose 85 Calcium 8.3 L Magnesium 2.0 Crossmatch PG Care Time/CCT Total # of Minutes Spent Total Time Spent with Patient: Total time spent is greater than 50% in coordination of care (as documented) at patient's floor/unit and/or counseling patient:
[2019-08-13] MEDS: IPRATROPIUM BROMIDE NEB SOLN 0.02% 2.5 ML VIAL INH SCH ×4 (00:54→19:43)
[2019-08-13] MEDS: LEVALBUTEROL 1.25MG/0.5ML NEB NEB SCH ×4 (00:54→19:42)
[2019-08-13 06:06] LABS: Hematocrit (blood only) 24.4 % (42-52); Hemoglobin 8.2 g/dL (14.0-18.0); Mean Corpuscular Hemoglobin 31.8 pg (25-34); Mean Corpuscular Hgb Conc 33.6 g/dL (32-36); Mean Corpuscular Volume 94.6 fL (80-100); Platelet Count 208 K/uL (130-400); RDW Coefficient of Variation 16.5 % (11.5-14.5); RDW Standard Deviation 56.8 fL (36.4-46.3); Red Blood Count 2.58 M/uL (4.7-6.1); White Blood Count 6.88 K/uL (4.8-10.8)
[2019-08-13 06:37] LABS: BUN Creatinine Ratio 16.4 (10-20); Calcium 8.2 mg/dl (8.5-10.1); Creatinine Clr Calc Pharmacy 23.8 ml/min; Est GFR (African American) 31.1; Est GFR (Non-African American) 26.8; Potassium 4.3 mmol/L (3.5-5.1)
--- NOTE | 2019-08-13 07:01 | Hospitalist Progress Note ---
Date of Service August 13, 2019 Assessment & Plan (1) Rectus sheath hematoma: Noted to have left rectus sheath hematoma on CAT scan measuring 8 x 4 cm Has been on aspirin for CAD with EMILIA Hemoglobin remains essent.stable Doubt any increasing hematoma Showing the natural course of rectus sheath hematoma, ecchymosis visible below umbilicus and spreading down to pt's groin Hemoglobin is down to 8-9 from 10.6 on admission, likely dilut. from intravenous fluid Denies any more pain Will monitor CBC Penile ecchymosis Secondary to rectus sheath hematoma, spreading down the patient's groin Urology was consulted, recommend scrotal support, ice packs as needed (2) Bronchitis: He has been complaining of cough likely secondary to sinobronchitis as an outpatient He received 2 doses of IM ceftriaxone as an outpatient Noted to have acute sinusitis on CT scan of the head Bibasilar densities secondary to atelectasis/pneumonitis Was started on IV Zosyn, switched to PO Augmentin today 08/11, and ISB, breathing treatments, guaifenesin [employer] to rule out any dysphagia/aspiration - pt needs assistance, moist and minced diet Constipation Pt has not had BM in couple of days despite good oral intake Miralax ordered prn will add dulcolax daily will also add probiotic, given pt is on Abx abdomen is soft, but ecchymosis present from rectus m.l sheath hematoma will cont. to monitor closely (3) Elevated troponin: Mild elevation of troponin Likely secondary to abnormal renal function and demand ischemia,doubt any ACS Appreciate cardiology input and recommendation Cardiac status remains stable (4) Acute renal failure superimposed on chronic kidney disease: Noted to have a creatinine of 2.78 on admission with increasing BUN Getting cautious amount intravenous fluid Creatinine has been improving, currently back to baseline Creatinine has been worsening recently as per outpatient labs done Nephrology has been consulted for further recommendation (5) ASCVD (arteriosclerotic cardiovascular disease): Has history of CAD status post EMIILA placement Appreciate cardiology input and recommendation (6) Sinusitis: Has been on Zosyn since admission (08/07) Switched to PO Augmentin on 08/11 (abx now day 7 out of 10) Possible Parkinson disease/benign essential tremor Noted to have parkinsonian type movement in the ED Neurology evaluation as requested by the daughter, likely essential tremor, no new medications recommended, pt may follow up as outpt w/ neurology (7) DVT prophylaxis: SCDs for now No pharmacologic anticoagulation due to rectus sheath hematoma PT and OT evaluation for possible placement - accepted to [facility] Discussed with the daughter in detail Subjective No acute events overnight. Patient sitting up in the bed, nursing staff at the bedside. He states he feels well, denies any fevers, chills, chest pain, shortness of breath, abdominal pain, nausea or vomiting. He has not had BM for coupe of days. He has a good appetite and has been eating his meals. Denies pain in groin area despite penile bruise. His ISB is placed on the table and patient has been using it. Review of Systems Review of Systems: All systems reviewed and are unremarkable except as noted below Constitutional: + fatigue; no fever and no chills Ear, Nose, Mouth, Throat: + hearing loss Respiratory: + dyspnea on exertion Cardiovascular: no chest pain and no palpitations Gastrointestinal: + constipation; no abdominal pain, no nausea and no vomiting Genitourinary: + scrotal swelling Musculoskeletal: no joint pain Neurologic: + generalized weakness Physical Exam Constitutional: well developed and well nourished; no acute distress Eyes: PERRL, conjunctivae normal, anicteric sclerae ENMT: external ear and nose normal, oropharynx normal Neck: supple Respiratory: normal respiratory effort; no respiratory distress and no labored breathing Auscultation: + diminished lung sounds and + crackles ( b/l); no wheezes Cardiovascular: Rate/Rhythm: regular rate and regular rhythm Heart Sounds: + murmur (systolic III/, at RUSB) Chest (Breasts): Chest: normal inspection of chest Gastrointestinal (Abdomen): Inspection/Auscultation: normal bowel sounds and + abdominal wall ecchymosis; + abdomen abnormal to inspection (Ecchymosis spreading down to the groin area, both flanks L>R) and abdomen not distended Percussion/Palpation: abdomen soft; abdomen nontender Musculoskeletal: Head/Neck/Chest: normocephalic, head atraumatic and neck supple Extremities: extremities normal to inspection Skin: no rashes, warm and dry Neurologic: PERRL, EOMI, accommodation nl, no face palsy, no dysarthria Psychiatric: Orientation: alert and oriented x 3 Affect: euthymic affect Genitourinary: + penis abnormality (penile ecchymosis); no CVA tenderness Lymphatic: no lymphedema and no cervical lymphadenopathy Results & Data Vital Signs (Past 12 Hours) Vital Signs Temp Pulse Resp BP Pulse Ox 08/13/19 00:54 87 16 94 08/12/19 23:34 36.8 C 89 20 147/77 H 94 Laboratory Results 08/13/19 08/13/19 Range/Units 05:13 05:13 WBC 6.88 (4.8-10.8) K/uL RBC 2.58 L (4.7-6.1) M/uL Hgb 8.2 L (14.0-18.0) g/dL Hct 24.4 L (42-52) % MCV 94.6 (80-100) fL MCH 31.8 (25-34) pg MCHC 33.6 (32-36) g/dL RDW Std Deviation 56.8 H (36.4-46.3) fL RDW Coeff of Ted 16.5 H (11.5-14.5) % Plt Count 208 (130-400) K/uL MPV 10.0 (7.4-10.4) fL Sodium 139 (136-145) mmol/L Potassium 4.3 (3.5-5.1) mmol/L Chloride 109 H (98-107) mmol/L Carbon Dioxide 27 (21-32) mmol/L Anion Gap 4.0 (3-11) BUN 35 H (7-18) mg/dl Creatinine 2.13 H (0.6-1.4) mg/dl Est Cr Clr Drug Dosing 23.8 ml/min Est GFR ( Amer) 31.1 Est GFR (Non-Af Amer) 26.8 BUN/Creatinine Ratio 16.4 (10-20) Glucose 81 (70-99) mg/dl Calcium 8.2 L (8.5-10.1) mg/dl Medications Administered Current Inpatient Medications Acetaminophen (Tylenol) 650 mg PO Q4H PRN PRN Reason: Pain or Fever Stop: 09/06/19 20:14 Acetaminophen (Tylenol) 500 mg PO BIDM PRN PRN Reason: Pain Stop: 09/07/19 18:08 Al Hydrox/Mg Hydrox/Simethicone (Maalox) 15 ml PO Q4H PRN PRN Reason: Dyspepsia Stop: 09/06/19 20:14 Allopurinol ([facility]oprim) [facility] Stop: 09/07/19 08:59 Last Admin: 08/12/19 09:44 Dose: 300 mg Documented by: Amoxicillin/Clavulanate Potassium (Augmentin 500mg) 1 tab PO BIDM [facility]; Protocol Stop: 08/18/19 07:59 Last Admin: 08/12/19 16:36 Dose: 1 tab Documented by: Aspirin (Ecotrin Ectab) 81 mg PO [facility] Stop: 09/07/19 08:59 Last Admin: 08/12/19 09:41 Dose: 81 mg Documented by: Atorvastatin Calcium (Lipitor) 80 mg PO M [facility] Stop: 09/07/19 08:59 Last Admin: 08/12/19 09:42 Dose: 80 mg Documented by: Benzonatate (Tessalon Perle) 100 mg PO TID [facility] Stop: 09/06/19 20:59 Last Admin: 08/12/19 20:09 Dose: 100 mg Documented by: Benzonatate (Tessalon Perle) 100 mg PO TID PRN PRN Reason: Cough Stop: 09/07/19 18:08 Budesonide (Pulmicort Respules) 0.5 mg INH BID PRN PRN Reason: Shortness Of Breath Or Wheezin Stop: 09/06/19 20:14 Escitalopram Oxalate (Lexapro Tab) 5 mg PO [facility] Stop: 09/07/19 08:59 Last Admin: 08/12/19 09:42 Dose: 5 mg Documented by: Fluticasone Propionate (Flonase) 2 sprays ALLY DAILY [facility] Stop: 09/07/19 08:59 Last Admin: 08/12/19 09:41 Dose: 2 sprays Documented by: Folic Acid (Folvite) 400 mcg PO DAILY [facility] Stop: 09/07/19 08:59 Last Admin: 08/12/19 09:42 Dose: 400 mcg Documented by: Furosemide (Lasix) 20 mg PO [facility] Stop: 09/11/19 08:59 Last Admin: 08/12/19 09:42 Dose: 20 mg Documented by: Sodium Chloride (Nss) 250 mls @ 15 mls/hr IV .[id number] PRN PRN Reason: For Transfusion Stop: 09/06/19 20:14 Ipratropium [place] (Atrovent 0.02% 0.5mg/2.5ml) 0.5 mg INH Q6R [facility] Stop: 09/07/19 00:59 Last Admin: 08/13/19 00:54 Dose: 0.5 mg Documented by: Levalbuterol HCl (Xopenex 1.25mg/0.5ml Neb) 1.25 mg NEB Q6R [facility] Stop: 09/07/19 00:59 Last Admin: 08/13/19 00:54 Dose: 1.25 mg Documented by: Levalbuterol HCl (Xopenex 1.25mg/3ml Neb) 1.25 mg INH Q4H PRN PRN Reason: Wheezing Stop: 09/06/19 20:14 Lidocaine HCl (Xylocaine 2% Jelly) 1 ml EXT Q6H PRN PRN Reason: Mild Pain Stop: 09/10/19 21:37 Loratadine (Claritin) 10 mg PO DAILY [facility] Stop: 09/08/19 08:59 Last Admin: 08/12/19 09:41 Dose: 10 mg Documented by: Metoprolol Succinate (Toprol Xl) 75 mg PO QAM [facility] Stop: 09/10/19 00:59 Last Admin: 08/12/19 09:44 Dose: 75 mg Documented by: Ondansetron HCl (Zofran) 4 mg IV Q6H PRN PRN Reason: Nausea Stop: 09/06/19 20:14 Pantoprazole Sodium (Protonix) 40 mg PO BID [facility] Stop: 09/06/19 20:59 Last Admin: 08/12/19 20:09 Dose: 40 mg Documented by: Polyethylene Glycol (Miralax Powder Packet) 17 gm PO DAILY PRN PRN Reason: Constipation Stop: 09/06/19 20:14 Last Admin: 08/12/19 12:36 Dose: 17 gm Documented by: Prednisone (Prednisone) 5 mg PO QAM [facility] Stop: 09/08/19 08:59 Last Admin: 08/12/19 09:43 Dose: 5 mg Documented by: Sodium Chloride ([place] Nasal) 3 sprays NA QID [facility] Stop: 09/07/19 08:59 Last Admin: 08/12/19 20:08 Dose: 3 sprays Documented by: Terazosin HCl (Hytrin) 2 mg PO QAM [facility] Stop: 09/07/19 08:59 Last Admin: 08/12/19 09:42 Dose: 2 mg Documented by: Vitamin B Complex (Vitamin B Complex) 1 tab PO DAILY [facility] Stop: 09/07/19 08:59 Last Admin: 08/12/19 09:44 Dose: 1 tab Documented by: (1) Sinusitis Chronicity: unspecified Sinusitis location: unspecified location Qualified Code(s): J32.9 - Chronic sinusitis, unspecified (2) Rectus sheath hematoma Encounter type: initial encounter Qualified Code(s): S30.1XXA - Contusion of abdominal wall, initial encounter
[2019-08-13] MEDS: AMOXICILLIN/CLAVULANATE 500 MG TAB PO SCH ×2 (08:04→16:47)
[2019-08-13] MEDS: LORATADINE 10 MG TAB PO SCH (08:05)
[2019-08-13] MEDS: FOLIC ACID 400 MCG TAB PO SCH (08:05)
[2019-08-13] MEDS: ASPIRIN 81 MG ECTAB PO SCH (08:05)
[2019-08-13] MEDS: FLUTICASONE PROPIONATE NA SPR 16 GM BTL NAE SCH (08:05)
[2019-08-13] MEDS: TERAZOSIN HCL 1 MG CAP PO SCH (08:06)
[2019-08-13] MEDS: ESCITALOPRAM OXALATE 10 MG TAB PO SCH (08:06)
[2019-08-13] MEDS: FUROSEMIDE 20 MG TAB PO SCH (08:06)
[2019-08-13] MEDS: predniSONE 5 MG TAB PO SCH (08:07)
[2019-08-13] MEDS: SODIUM CHLORIDE 0.65% NA SOLN 45 ML (OCEAN) SCH ×4 (08:07→20:13)
[2019-08-13] MEDS: ATORVASTATIN 40 MG TAB PO SCH (08:07)
[2019-08-13] MEDS: BENZONATATE 100 MG CAPSULE PO SCH (08:08)
[2019-08-13] MEDS: METOPROLOL SUCC 25MG EXT REL TAB PO SCH (08:08)
[2019-08-13] MEDS: VITAMIN B COMPLEX TAB PO SCH (08:08)
[2019-08-13] MEDS: PANTOprazole 40 MG TAB PO SCH ×2 (08:08→20:14)
[2019-08-13] MEDS: ALLOPURINOL 300 MG TAB PO SCH (08:09)
[2019-08-13] MEDS: POLYETHYLENE (MIRALAX) 17 GM PACK PO PRN (08:15)
[2019-08-13] MEDS: guaiFENesin 600 MG TABCR PO SCH ×2 (10:25→20:14)
[2019-08-13] MEDS ORDERED: BISACODYL 5 MG TABEC PO ONE (10:30)
[2019-08-13] MEDS: LACTOBACILLUS ACIDOPHILUS (FLORANEX) TAB PO SCH ×2 (12:02→16:47)
--- NOTE | 2019-08-13 18:59 | Nephrology Progress Note ---
Date of Service August 13, 2019 Assessment & Plan (1) Chronic kidney disease, unspecified: baseline creatinine 2.3-2.5 in 2019 as OP w/ some lability and w/ 1.5 gm daily proteinuria most recently. While he had TAYLOR on presentation, this has since resolved w/ gentle hydration. his urine sediment on presentation was concentrated but bland apart from expected dipstick proteinuria. Cr today of 2.1 close to baseline. his chemistries have been acceptable apart from progressive hyperchloremia, likely from NS -daily bmp while in house -No need for iv fluids (2) HTN (hypertension): BP is controlled on current regimen. No changes (3) Acute on chronic anemia: notable that despite advanced CKD this pt is generally as OP not anemic or only mildly so. suspect the acute worsening is d/t rectal sheath hematoma. -monitor hgb daily. Check iron saturation. Will need epogen if iron replete -transfuse if <7 or sx Subjective Patient seen during morning rounds. No SOB. Has bid bruise on right hip which is painful. No vomiting or diarrhoea. Review of Systems Review of Systems: All systems reviewed & are unremarkable except as noted in HPI & below Physical Exam Physical Exam: General exam: Appears comfortable, no acute distress HEENT: Pupils are equal and reactive to light Neck: No JVD, neck is supple trachea is midline Respiratory system: Clear breath sounds bilaterally. Gastrointestinal: Abdomen is soft, non distended, non tender, bowel sounds are present CVS: Regular rate and rhythm. No murmurs, rubs or gallops Musculoskeletal: No joint or muscle tenderness Extremities: Non tender, no edema, peripheral pulses are present Neuro: Oriented, no tremors, no focal neurological deficits Skin: bruise on right hip Results & Data Vital Signs (Past 12 Hours) Vital Signs Temp Pulse Resp BP Pulse Ox 08/13/19 14:00 36.6 C 88 20 144/78 H 95 08/13/19 13:01 89 18 93 08/13/19 07:21 83 18 91 08/13/19 07:00 36.4 C L 94 H 20 160/79 H 95 Laboratory Results Laboratory Results - last 24 hr 08/13/19 08/13/19 05:13 05:13 WBC 6.88 RBC 2.58 L Hgb 8.2 L Hct 24.4 L MCV 94.6 MCH 31.8 MCHC 33.6 RDW Std Deviation 56.8 H RDW Coeff of Ted 16.5 H Plt Count 208 MPV 10.0 Sodium 139 Potassium 4.3 Chloride 109 H Carbon Dioxide 27 Anion Gap 4.0 BUN 35 H Creatinine 2.13 H Est Cr Clr Drug Dosing 23.8 Est GFR ( Amer) 31.1 Est GFR (Non-Af Amer) 26.8 BUN/Creatinine Ratio 16.4 Glucose 81 Calcium 8.2 L (1) Chronic kidney disease, unspecified Chronic kidney disease stage: stage 4 (severe) Qualified Code(s): N18.4 - Chronic kidney disease, stage 4 (severe) (2) HTN (hypertension) Hypertension type: essential hypertension Qualified Code(s): I10 - Essential (primary) hypertension
[2019-08-14] MEDS: IPRATROPIUM BROMIDE NEB SOLN 0.02% 2.5 ML VIAL INH SCH ×4 (00:53→18:54)
[2019-08-14] MEDS: LEVALBUTEROL 1.25MG/0.5ML NEB NEB SCH ×4 (00:53→18:54)
[2019-08-14 06:00] LABS: Hematocrit (blood only) 23.8 % (42-52); Hemoglobin 8.1 g/dL (14.0-18.0); Mean Corpuscular Hemoglobin 32.4 pg (25-34); Mean Corpuscular Volume 95.2 fL (80-100); Mean Platelet Volume 9.7 fL (7.4-10.4); Platelet Count 193 K/uL (130-400); RDW Coefficient of Variation 16.6 % (11.5-14.5); White Blood Count 6.85 K/uL (4.8-10.8)
[2019-08-14 06:28] LABS: BUN Creatinine Ratio 15.6 (10-20); Creatinine Clr Calc Pharmacy 22.3 ml/min; Est GFR (African American) 28.6; Est GFR (Non-African American) 24.7; Potassium 4.3 mmol/L (3.5-5.1)
[2019-08-14] MEDS: LORATADINE 10 MG TAB PO SCH (07:52)
[2019-08-14] MEDS: LACTOBACILLUS ACIDOPHILUS (FLORANEX) TAB PO SCH ×3 (07:52→17:02)
[2019-08-14] MEDS: AMOXICILLIN/CLAVULANATE 500 MG TAB PO SCH ×2 (07:52→17:02)
[2019-08-14] MEDS: FLUTICASONE PROPIONATE NA SPR 16 GM BTL NAE SCH (07:53)
[2019-08-14] MEDS: TERAZOSIN HCL 1 MG CAP PO SCH (07:53)
[2019-08-14] MEDS: FUROSEMIDE 20 MG TAB PO SCH (07:53)
[2019-08-14] MEDS: FOLIC ACID 400 MCG TAB PO SCH (07:53)
[2019-08-14] MEDS: ASPIRIN 81 MG ECTAB PO SCH (07:53)
[2019-08-14] MEDS: guaiFENesin 600 MG TABCR PO SCH ×2 (07:54→21:16)
[2019-08-14] MEDS: ESCITALOPRAM OXALATE 10 MG TAB PO SCH (07:54)
[2019-08-14] MEDS: ATORVASTATIN 40 MG TAB PO SCH (07:54)
[2019-08-14] MEDS: SODIUM CHLORIDE 0.65% NA SOLN 45 ML (OCEAN) SCH ×4 (07:54→21:16)
[2019-08-14] MEDS: ALLOPURINOL 300 MG TAB PO SCH (07:55)
[2019-08-14] MEDS: predniSONE 5 MG TAB PO SCH (07:55)
[2019-08-14] MEDS: METOPROLOL SUCC 25MG EXT REL TAB PO SCH (07:55)
[2019-08-14] MEDS: PANTOprazole 40 MG TAB PO SCH ×2 (07:55→21:17)
[2019-08-14] MEDS: VITAMIN B COMPLEX TAB PO SCH (07:55)
--- NOTE | 2019-08-14 08:15 | Hospitalist Progress Note ---
Date of Service August 14, 2019 Assessment & Plan (1) Rectus sheath hematoma: Noted to have left rectus sheath hematoma on CAT scan measuring 8 x 4 cm s/p fall Has been on aspirin for CAD with EMILIA Hemoglobin remains essent.stable Doubt any increasing hematoma Showing the natural course of rectus sheath hematoma, ecchymosis visible below umbilicus and spreading down to pt's groin, L flank >R flank Hemoglobin is down to 8-9 from 10.6 on admission, likely dilut. from intravenous fluid Denies any more pain Will monitor CBC Penile ecchymosis Secondary to rectus sheath hematoma, spreading down the patient's groin Urology was consulted, recommend scrotal support, ice packs as needed Anemia -seems multifactorial, secondary to hematoma, CKD, iron deficiency - iron sat. 16% -plan to start on iron supplement after Abx treatment (2) Bronchitis: He has been complaining of cough likely secondary to sinobronchitis as an outpatient He received 2 doses of IM ceftriaxone as an outpatient Noted to have acute sinusitis on CT scan of the head Bibasilar densities secondary to atelectasis/pneumonitis Was started on IV Zosyn, switched to PO Augmentin on 08/11, and ISB, breathing treatments, guaifenesin Patient continues to be dyspneic with any mild ambulation, physical exam not much improved, will obtain chest x-ray (08/14) [employer]ENTAT[employer] to rule out any dysphagia/aspiration - pt needs assistance, moist and minced diet Constipation - improved Pt had BM today Miralax ordered prn cont. dulcolax daily scheduled cont. probiotic, given pt is on Abx abdomen is soft, but ecchymosis present from rectus m. sheath hematoma will cont. to monitor closely (3) Elevated troponin: Mild elevation of troponin Likely secondary to abnormal renal function and demand ischemia,doubt any ACS Appreciate cardiology input and recommendation Cardiac status remains stable (4) Acute renal failure superimposed on chronic kidney disease: Noted to have a creatinine of 2.78 on admission with increasing BUN Getting cautious amount intravenous fluid Creatinine has been improving, currently back to baseline Per outpt labs, Cr has been worsening recently Nephrology has been consulted for further recommendation (5) ASCVD (arteriosclerotic cardiovascular disease): Has history of CAD status post EMILAI placement Appreciate cardiology input and recommendation (6) Sinusitis: on Zosyn on admission (10/20) Switched to PO Augmentin on 08/11 (abx now day 8 out of 10) Possible Parkinson disease/benign essential tremor Noted to have parkinsonian type movement in the ED Neurology evaluation as requested by the daughter, likely essential tremor, no new medications recommended, pt may follow up as outpt w/ neurology (7) DVT prophylaxis: SCDs for now No pharmacologic anticoagulation due to rectus sheath hematoma PT and OT evaluation for possible placement - accepted to [facility] Discussed clinical status with daughters and pt's in detail. Subjective No acute events overnight. Patient is lying in bed, falls asleep intermittently, family at the bedside. Patient's and daughter Magda present at the bedside and discussed patient's clinical status. Magda feels like patient should be in rehab so he can get his strength back and understands that he cannot get as much physical therapy in the hospital as he could in rehab. Patient himself appears tired, however states that he slept well last night, feels well overall, denies any fevers, chills, chest pain, shortness of breath, abdominal pain, nausea or vomiting. Family is concerned that he gets short of breath easily with ambulation. He had a BM this AM. He has a good appetite and has been eating his meals. Denies pain in groin area despite penile bruise. Review of Systems Review of Systems: All systems reviewed and are unremarkable except as noted below Constitutional: + fatigue; no fever and no chills Ear, Nose, Mouth, Throat: + hearing loss Respiratory: + dyspnea on exertion Gastrointestinal: + constipation; no abdominal pain, no nausea and no vomiting Genitourinary: + scrotal swelling Musculoskeletal: No acute arthritis in any joints Neurologic: + generalized weakness Physical Exam Constitutional: well developed and well nourished; no acute distress Eyes: PERRL, conjunctivae normal, anicteric sclerae ENMT: external ear and nose normal, oropharynx normal Neck: supple Respiratory: normal respiratory effort; no respiratory distress and no labored breathing Auscultation: + diminished lung sounds and + rhonchi (R>L); no wheezes Cardiovascular: RRR, no murmur, no edema Rate/Rhythm: regular rate and regular rhythm Heart Sounds: + murmur (systolic III/, at RUSB) Chest (Breasts): Chest: normal inspection of chest Gastrointestinal (Abdomen): Inspection/Auscultation: normal bowel sounds and + abdominal wall ecchymosis; + abdomen abnormal to inspection (Ecchymosis spreading down to the groin area, both flanks L>R) and abdomen not distended Percussion/Palpation: abdomen soft; abdomen nontender Musculoskeletal: Head/Neck/Chest: normocephalic, head atraumatic and neck supple Extremities: extremities normal to inspection Skin: no rashes, warm and dry Neurologic: PERRL, EOMI, accommodation nl, no face palsy, no dysarthria normal touch/pain/proprioception, CN's II-XI intact bilaterally and moves all extremities Cranial Nerves: normal facial strength and tongue midline; + hearing impairment Psychiatric: Orientation: alert and oriented x 3 Affect: euthymic affect Genitourinary: + penis abnormality (penile ecchymosis); no CVA tenderness Lymphatic: no lymphedema and no cervical lymphadenopathy Results & Data Vital Signs (Past 12 Hours) Vital Signs Temp Pulse Resp BP BP Pulse Ox 08/14/19 07:03 79 18 93 08/14/19 07:00 36.9 C 96 H 20 156/81 H 94 08/14/19 00:53 67 16 93 08/13/19 23:48 37.0 C 91 H 20 152/81 H 93 Laboratory Results 08/14/19 08/14/19 Range/Units 05:23 05:23 WBC 6.85 (4.8-10.8) K/uL RBC 2.50 L (4.7-6.1) M/uL Hgb 8.1 L (14.0-18.0) g/dL Hct 23.8 L (42-52) % MCV 95.2 (80-100) fL MCH 32.4 (25-34) pg MCHC 34.0 (32-36) g/dL RDW Std Deviation 57.0 H (36.4-46.3) fL RDW Coeff of Ted 16.6 H (11.5-14.5) % Plt Count 193 (130-400) K/uL MPV 9.7 (7.4-10.4) fL Sodium 139 (136-145) mmol/L Potassium 4.3 (3.5-5.1) mmol/L Chloride 108 H (98-107) mmol/L Carbon Dioxide 28 (21-32) mmol/L Anion Gap 3.0 (3-11) BUN 36 H (7-18) mg/dl Creatinine 2.28 H (0.6-1.4) mg/dl Est Cr Clr Drug Dosing 22.3 ml/min Est GFR ( Amer) 28.6 Est GFR (Non-Af Amer) 24.7 BUN/Creatinine Ratio 15.6 (10-20) Glucose 83 (70-99) mg/dl Calcium 8.0 L (8.5-10.1) mg/dl Iron 33 L (35-175) mcg/dl Transferrin 143 L (200-360) mg/dl Transferrin % Sat 16 L (20-50) % Medications Administered Current Inpatient Medications Acetaminophen (Tylenol) 500 mg PO BIDM PRN PRN Reason: Pain Stop: 09/07/19 18:08 Al Hydrox/Mg Hydrox/Simethicone (Maalox) 15 ml PO Q4H PRN PRN Reason: Dyspepsia Stop: 09/06/19 20:14 Allopurinol (Zyloprim) 300 mg PO [facility] Stop: 09/07/19 08:59 Last Admin: 08/14/19 07:55 Dose: 300 mg Documented by: Amoxicillin/Clavulanate Potassium (Augmentin 500mg) 1 tab PO BIDM [facility]; Protocol Stop: 08/18/19 07:59 Last Admin: 08/14/19 07:52 Dose: 1 tab Documented by: Aspirin (Ecotrin Ectab) 81 mg PO [facility] Stop: 09/07/19 08:59 Last Admin: 08/14/19 07:53 Dose: 81 mg Documented by: Atorvastatin Calcium (Lipitor) 80 mg PO [facility] Stop: 09/07/19 08:59 Last Admin: 08/14/19 07:54 Dose: 80 mg Documented by: Benzonatate (Tessalon Perle) 100 mg PO TID PRN PRN Reason: Cough Stop: 09/07/19 18:08 Bisacodyl (Dulcolax) 5 mg PO DAILY [facility] Stop: 09/13/19 08:59 Budesonide (Pulmicort Respules) 0.5 mg INH BID PRN PRN Reason: Shortness Of Breath Or Wheezin Stop: 09/06/19 20:14 Escitalopram Oxalate (Lexapro Tab) 5 mg PO [facility] Stop: 09/07/19 08:59 Last Admin: 08/14/19 07:54 Dose: 5 mg Documented by: Fluticasone Propionate (Flonase) 2 sprays ALLY DAILY [facility] Stop: 09/07/19 08:59 Last Admin: 08/14/19 07:53 Dose: 2 sprays Documented by: Folic Acid (Folvite) 400 mcg PO DAILY [facility] Stop: 09/07/19 08:59 Last Admin: 08/14/19 07:53 Dose: 400 mcg Documented by: Furosemide (Lasix) 20 mg PO QAM [facility] Stop: 09/11/19 08:59 Last Admin: 08/14/19 07:53 Dose: 20 mg Documented by: Guaifenesin (Mucinex) 600 mg PO Q12 [facility] Stop: 09/12/19 08:59 Last Admin: 08/14/19 07:54 Dose: 600 mg Documented by: Sodium Chloride (Nss) 250 mls @ 15 mls/hr IV .[id number] PRN PRN Reason: For Transfusion Stop: 09/06/19 20:14 Ipratropium [place] (Atrovent 0.02% 0.5mg/2.5ml) 0.5 mg INH Q6R [facility] Stop: 09/07/19 00:59 Last Admin: 08/14/19 06:47 Dose: 0.5 mg Documented by: Lactobacillus Acidophilus (Floranex) 4 tab PO TIDM [facility] Stop: 09/12/19 11:59 Last Admin: 08/14/19 07:52 Dose: 4 tab Documented by: Levalbuterol HCl (Xopenex 1.25mg/0.5ml Neb) 1.25 mg NEB Q6R [facility] Stop: 09/07/19 00:59 Last Admin: 08/14/19 06:49 Dose: 1.25 mg Documented by: Levalbuterol HCl (Xopenex 1.25mg/3ml Neb) 1.25 mg INH Q4H PRN PRN Reason: Wheezing Stop: 09/06/19 20:14 Lidocaine HCl (Xylocaine 2% Jelly) 1 ml EXT Q6H PRN PRN Reason: Mild Pain Stop: 09/10/19 21:37 Loratadine (Claritin) 10 mg PO DAILY [facility] Stop: 09/08/19 08:59 Last Admin: 08/14/19 07:52 Dose: 10 mg Documented by: Metoprolol Succinate (Toprol Xl) 75 mg PO QAM [facility] Stop: 09/10/19 00:59 Last Admin: 08/14/19 07:55 Dose: 75 mg Documented by: Ondansetron HCl (Zofran) 4 mg IV Q6H PRN PRN Reason: Nausea Stop: 09/06/19 20:14 Pantoprazole Sodium (Protonix) 40 mg PO BID [facility] Stop: 09/06/19 20:59 Last Admin: 08/14/19 07:55 Dose: 40 mg Documented by: Polyethylene Glycol (Miralax Powder Packet) 17 gm PO DAILY PRN PRN Reason: Constipation Stop: 09/06/19 20:14 Last Admin: 08/13/19 08:15 Dose: 17 gm Documented by: Prednisone (Prednisone) 5 mg PO QAM [facility] Stop: 09/08/19 08:59 Last Admin: 08/14/19 07:55 Dose: 5 mg Documented by: Sodium Chloride ([place] Nasal) 3 sprays NA QID [facility] Stop: 09/07/19 08:59 Last Admin: 08/14/19 07:54 Dose: 2 sprays Documented by: Terazosin HCl (Hytrin) 2 mg PO QAM [facility] Stop: 09/07/19 08:59 Last Admin: 08/14/19 07:53 Dose: 2 mg Documented by: Vitamin B Complex (Vitamin B Complex) 1 tab PO DAILY [facility] Stop: 09/07/19 08:59 Last Admin: 08/14/19 07:55 Dose: 1 tab Documented by: (1) Sinusitis Chronicity: unspecified Sinusitis location: unspecified location Qualified Code(s): J32.9 - Chronic sinusitis, unspecified (2) Rectus sheath hematoma Encounter type: initial encounter Qualified Code(s): S30.1XXA - Contusion of abdominal wall, initial encounter
[2019-08-14] MEDS: BISACODYL 5 MG TABEC PO SCH (11:01)
--- NOTE | 2019-08-14 11:02 | Nephrology Progress Note ---
Date of Service August 14, 2019 Assessment & Plan (1) Chronic kidney disease, unspecified: baseline creatinine 2.3-2.5 in 2019 as OP w/ some lability and w/ 1.5 gm daily proteinuria most recently. While he had TAYLOR on presentation, this has since resolved w/ gentle hydration. his urine sediment on presentation was concentrated but bland apart from expected dipstick proteinuria. Cr today of 2.2 close to baseline. his chemistries have been acceptable. -daily bmp while in house -No need for iv fluids (2) HTN (hypertension): BP is slightly above target but acceptable. No changes (3) Acute on chronic anemia: notable that despite advanced CKD this pt is generally as OP not anemic or only mildly so. suspect the acute worsening is d/t rectal sheath hematoma. Iron saturation of 16%. -Patient will need treatment with iron and Epogen once off antibiotics -monitor hgb daily. -transfuse if <7 or sx Subjective Patient feels better. He denies any shortness of breath or leg swelling. Still has pain in the left flank Review of Systems Review of Systems: All systems reviewed & are unremarkable except as noted in HPI & below Physical Exam Physical Exam: General exam: Appears comfortable, no acute distress HEENT: Pupils are equal and reactive to light Neck: No JVD, neck is supple trachea is midline Respiratory system: Clear breath sounds bilaterally. Gastrointestinal: Abdomen is soft, non distended, non tender, bowel sounds are present CVS: Regular rate and rhythm. No murmurs, rubs or gallops Musculoskeletal: No joint or muscle tenderness Extremities: Non tender, no edema, peripheral pulses are present Neuro: Oriented, no tremors, no focal neurological deficits Skin: Large bruise on the left flank Results & Data Vital Signs (Past 12 Hours) Vital Signs Temp Pulse Resp BP BP Pulse Ox 08/14/19 07:03 79 18 93 08/14/19 07:00 36.9 C 96 H 20 156/81 H 94 08/14/19 00:53 67 16 93 08/13/19 23:48 37.0 C 91 H 20 152/81 H 93 Laboratory Results Laboratory Results - last 24 hr 08/14/19 08/14/19 05:23 05:23 WBC 6.85 RBC 2.50 L Hgb 8.1 L Hct 23.8 L MCV 95.2 MCH 32.4 MCHC 34.0 RDW Std Deviation 57.0 H RDW Coeff of Ted 16.6 H Plt Count 193 MPV 9.7 Sodium 139 Potassium 4.3 Chloride 108 H Carbon Dioxide 28 Anion Gap 3.0 BUN 36 H Creatinine 2.28 H Est Cr Clr Drug Dosing 22.3 Est GFR ( Amer) 28.6 Est GFR (Non-Af Amer) 24.7 BUN/Creatinine Ratio 15.6 Glucose 83 Calcium 8.0 L Iron 33 L Transferrin 143 L Transferrin % Sat 16 L (1) Chronic kidney disease, unspecified Chronic kidney disease stage: stage 4 (severe) Qualified Code(s): N18.4 - Chronic kidney disease, stage 4 (severe) (2) HTN (hypertension) Hypertension type: essential hypertension Qualified Code(s): I10 - Essential (primary) hypertension
--- NOTE | 2019-08-14 20:57 | XRay Report ---
XR chest 1V portable CLINICAL HISTORY: eval pna pneumonitis COMPARISON STUDY: 08/07/2019 FINDINGS: Small parenchymal infiltrate left base. Potential right apical nonconsolidative infiltrate. Progressive mild bibasilar atelectasis. Prior median sternotomy. IMPRESSION: Patchy left basilar and right apical parenchymal infiltrative change. Mild bibasilar ate lectatic change. The above report was generated using voice recognition software. It may contain grammatical, syntax or spelling errors. Electronically signed by: Rafael Nowak M.D. 08/14/2019 8:55 PM
[2019-08-15] MEDS: SODIUM CHLOR 7% 4 ML NEB NEB SCH ×4 (00:50→19:10)
[2019-08-15] MEDS: IPRATROPIUM BROMIDE NEB SOLN 0.02% 2.5 ML VIAL INH SCH ×4 (01:07→19:09)
[2019-08-15] MEDS: LEVALBUTEROL 1.25MG/0.5ML NEB NEB SCH ×4 (01:08→19:09)
[2019-08-15 06:00] LABS: Hematocrit (blood only) 25.5 % (42-52); Hemoglobin 8.4 g/dL (14.0-18.0); Mean Corpuscular Hemoglobin 31.8 pg (25-34); Mean Corpuscular Hgb Conc 32.9 g/dL (32-36); Mean Corpuscular Volume 96.6 fL (80-100); Mean Platelet Volume 9.8 fL (7.4-10.4); Platelet Count 191 K/uL (130-400); RDW Coefficient of Variation 16.4 % (11.5-14.5); RDW Standard Deviation 56.8 fL (36.4-46.3); Red Blood Count 2.64 M/uL (4.7-6.1); White Blood Count 6.26 K/uL (4.8-10.8)
[2019-08-15 06:43] LABS: BUN Creatinine Ratio 14.8 (10-20); Calcium 8.3 mg/dl (8.5-10.1); Creatinine Clr Calc Pharmacy 21.7 ml/min; Est GFR (African American) 27.7; Est GFR (Non-African American) 23.9; Potassium 4.2 mmol/L (3.5-5.1)
--- NOTE | 2019-08-15 07:13 | Hospitalist Progress Note ---
Date of Service August 15, 2019 Assessment & Plan (1) Rectus sheath hematoma: Noted to have left rectus sheath hematoma on CAT scan measuring 8 x 4 cm s/p fall Has been on aspirin for CAD with EMILIA Hemoglobin remains essent.stable Doubt any increasing hematoma Showing the natural course of rectus sheath hematoma, ecchymosis visible below umbilicus and spreading down to pt's groin, L flank >R flank Hemoglobin is down to 8-9 from 10.6 on admission, likely dilut. from intravenous fluid Denies any more pain Will monitor CBC Penile ecchymosis Secondary to rectus sheath hematoma, spreading down the patient's groin Urology was consulted, recommend scrotal support, ice packs as needed Anemia -seems multifactorial, secondary to hematoma, CKD, iron deficiency - iron sat. 16% -plan to start on iron supplement/infs. after Abx treatment (2) Bronchitis: He has been complaining of cough likely secondary to sinobronchitis as an outpatient He received 2 doses of IM ceftriaxone as an outpatient Noted to have acute sinusitis on CT scan of the head Bibasilar densities secondary to atelectasis/pneumonitis on admission Was started on IV Zosyn, switched to PO Augmentin on 08/11, and ISB,flutter valve, breathing treatments, guaifenesin Patient continues to be dyspneic with any mild ambulation, physical exam not much improved, obtained follow up chest x-ray (08/14) -x-ray showed progressive bibasilar atelectasis and patchy left basilar and right apical parenchymal infiltrative change Given patient is not headed in the right direction as far as his pulm. state goals, ordered also hypertonic saline nebs and consulted pulmonology for their input Will obtain procalcitonin [employer] to rule out any dysphagia/aspiration - pt needs assistance, moist and minced diet Constipation - resolved Miralax ordered prn cont. dulcolax daily scheduled cont. probiotic, given pt is on Abx abdomen is soft, but ecchymosis present from rectus m. sheath hematoma will cont. to monitor closely (3) Elevated troponin: Mild elevation of troponin Likely secondary to abnormal renal function and demand ischemia,doubt any ACS Appreciate cardiology input and recommendation Cardiac status remains stable (4) Acute renal failure superimposed on chronic kidney disease: Noted to have a creatinine of 2.78 on admission with increasing BUN Getting cautious amount intravenous fluid Creatinine has been improving, currently back to baseline Per outpt labs, Cr has been worsening recently Nephrology has been consulted for further recommendation (5) ASCVD (arteriosclerotic cardiovascular disease): Has history of CAD status post EMILIA placement Appreciate cardiology input and recommendation (6) Sinusitis: on Zosyn on admission (08/07) Switched to PO Augmentin on 08/11 (abx now day 9 out of 10) Possible Parkinson disease/benign essential tremor Noted to have parkinsonian type movement in the ED Neurology evaluation as requested by the daughter, likely essential tremor, no new medications recommended, pt may follow up as outpt w/ neurology (7) DVT prophylaxis: SCDs for now No pharmacologic anticoagulation due to rectus sheath hematoma PT and OT evaluation for possible placement - accepted to [facility] Discussed clinical status with daughters and pt's in detail Subjective No acute events overnight, patient is sitting up in the chair this morning. Denies any fevers, chills, nausea, vomiting, abdominal pain. says he feels much better since he's been in the hospital. Review of Systems Constitutional: + fatigue and + weakness; no fever and no chills Respiratory: no cough and no dyspnea Cardiovascular: no chest pain, no palpitations and no edema Gastrointestinal: no abdominal pain, no nausea and no vomiting Physical Exam Constitutional: well developed and well nourished; no acute distress Eyes: PERRL, conjunctivae normal, anicteric sclerae ENMT: external ear and nose normal, oropharynx normal Neck: Supple Respiratory: normal respiratory effort; no respiratory distress and no labored breathing Auscultation: + diminished lung sounds and + rhonchi (R>L); no wheezes Cardiovascular: RRR, no murmur, no edema Rate/Rhythm: regular rate and regular rhythm Heart Sounds: + murmur (systolic III/, at RUSB) Chest (Breasts): Chest: normal inspection of chest Gastrointestinal (Abdomen): Inspection/Auscultation: normal bowel sounds and + abdominal wall ecchymosis; + abdomen abnormal to inspection (Ecchymosis spreading down to the groin area, both flanks L>R) and abdomen not distended Percussion/Palpation: abdomen soft; abdomen nontender Musculoskeletal: Head/Neck/Chest: normocephalic, head atraumatic and neck supple Extremities: extremities normal to inspection Skin: no rashes, warm and dry Neurologic: PERRL, EOMI, accommodation nl, no face palsy, no dysarthria normal touch/pain/proprioception, CN's II-XI intact bilaterally and moves all extremities Cranial Nerves: normal facial strength and tongue midline; + hearing impairment Psychiatric: Orientation: alert and oriented x 3 Affect: euthymic affect Genitourinary: + penis abnormality (penile ecchymosis); no CVA tenderness Lymphatic: no lymphedema and no cervical lymphadenopathy Results & Data Vital Signs (Past 12 Hours) Vital Signs Temp Pulse Resp BP BP Pulse Ox 08/15/19 01:08 84 14 95 08/15/19 00:04 161/81 H 08/14/19 23:39 36.7 C 82 20 177/84 H 94 Laboratory Results 08/15/19 08/15/19 Range/Units 05:31 05:31 WBC 6.26 (4.8-10.8) K/uL RBC 2.64 L (4.7-6.1) M/uL Hgb 8.4 L (14.0-18.0) g/dL Hct 25.5 L (42-52) % MCV 96.6 (80-100) fL MCH 31.8 (25-34) pg MCHC 32.9 (32-36) g/dL RDW Std Deviation 56.8 H (36.4-46.3) fL RDW Coeff of Ted 16.4 H (11.5-14.5) % Plt Count 191 (130-400) K/uL MPV 9.8 (7.4-10.4) fL Sodium 139 (136-145) mmol/L Potassium 4.2 (3.5-5.1) mmol/L Chloride 106 (98-107) mmol/L Carbon Dioxide 26 (21-32) mmol/L Anion Gap 7.0 (3-11) BUN 35 H (7-18) mg/dl Creatinine 2.34 H (0.6-1.4) mg/dl Est Cr Clr Drug Dosing 21.7 ml/min Est GFR ( Amer) 27.7 Est GFR (Non-Af Amer) 23.9 BUN/Creatinine Ratio 14.8 (10-20) Glucose 79 (70-99) mg/dl Calcium 8.3 L (8.5-10.1) mg/dl Diagnostic Findings CXR (08/14) FINDINGS: Small parenchymal infiltrate left base. Potential right apical nonconsolidative infiltrate. Progressive mild bibasilar atelectasis. Prior median sternotomy. IMPRESSION: Patchy left basilar and right apical parenchymal infiltrative change. Mild bibasilar atelectatic change. Medications Administered Current Inpatient Medications Acetaminophen (Tylenol) 500 mg PO BIDM PRN PRN Reason: Pain Stop: 09/07/19 18:08 Al Hydrox/Mg Hydrox/Simethicone (Maalox) 15 ml PO Q4H PRN PRN Reason: Dyspepsia Stop: 09/06/19 20:14 [facility] [place]: 09/07/19 08:59 Last Admin: 08/14/19 07:55 Dose: 300 mg Documented by: Amoxicillin/Clavulanate Potassium (Augmentin 500mg) 1 tab PO BIDM [facility]; Protocol Stop: 08/18/19 07:59 Last Admin: 08/14/19 17:02 Dose: 1 tab Documented by: Aspirin (Ecotrin Ectab) [facility] [place]: 09/07/19 08:59 Last Admin: 08/14/19 07:53 Dose: 81 mg Documented by: Atorvastatin Calcium (Lipitor) 80 mg PO QAM [facility] Stop: 09/07/19 08:59 Last Admin: 08/14/19 07:54 Dose: 80 mg Documented by: Benzonatate (Tessalon Perle) 100 mg PO TID PRN PRN Reason: Cough Stop: 09/07/19 18:08 Bisacodyl (Dulcolax) 5 mg PO DAILY [facility] Stop: 09/13/19 08:59 Last Admin: 08/14/19 11:01 Dose: 5 mg Documented by: Budesonide (Pulmicort Respules) 0.5 mg INH BID PRN PRN Reason: Shortness Of Breath Or Wheezin Stop: 09/06/19 20:14 Escitalopram Oxalate (Lexapro Tab) 5 mg PO QAM [facility] Stop: 09/07/19 08:59 Last Admin: 08/14/19 07:54 Dose: 5 mg Documented by: Fluticasone Propionate (Flonase) 2 sprays ALLY DAILY [facility] Stop: 09/07/19 08:59 Last Admin: 08/14/19 07:53 Dose: 2 sprays Documented by: Folic Acid (Folvite) 400 mcg PO DAILY [facility] Stop: 09/07/19 08:59 Last Admin: 08/14/19 07:53 Dose: 400 mcg Documented by: Furosemide (Lasix) 20 mg PO QAM [facility] Stop: 09/11/19 08:59 Last Admin: 08/14/19 07:53 Dose: 20 mg Documented by: Guaifenesin (Mucinex) 1,200 mg PO Q12 [facility] Stop: 09/13/19 20:59 Last Admin: 08/14/19 21:16 Dose: 1,200 mg Documented by: Sodium Chloride (Nss) 250 mls @ 15 mls/hr IV .[id number] PRN PRN Reason: For Transfusion Stop: 09/06/19 20:14 Ipratropium [place] (Atrovent 0.02% 0.5mg/2.5ml) 0.5 mg INH Q6R [facility] Stop: 09/07/19 00:59 Last Admin: 08/15/19 01:07 Dose: 0.5 mg Documented by: Lactobacillus Acidophilus (Floranex) 4 tab PO TIDM [facility] Stop: 09/12/19 11:59 Last Admin: 08/14/19 17:02 Dose: 4 tab Documented by: Levalbuterol HCl (Xopenex 1.25mg/0.5ml Neb) 1.25 mg NEB Q6R [facility] Stop: 09/07/19 00:59 Last Admin: 08/15/19 01:08 Dose: 1.25 mg Documented by: Levalbuterol HCl (Xopenex 1.25mg/3ml Neb) 1.25 mg INH Q4H PRN PRN Reason: Wheezing Stop: 09/06/19 20:14 Lidocaine HCl (Xylocaine 2% Jelly) 1 ml EXT Q6H PRN PRN Reason: Mild Pain Stop: 09/10/19 21:37 Loratadine (Claritin) 10 mg PO DAILY [facility] Stop: 09/08/19 08:59 Last Admin: 08/14/19 07:52 Dose: 10 mg Documented by: Metoprolol Succinate (Toprol Xl) 75 mg PO QAM [facility] Stop: 09/10/19 00:59 Last Admin: 08/14/19 07:55 Dose: 75 mg Documented by: Ondansetron HCl (Zofran) 4 mg IV Q6H PRN PRN Reason: Nausea Stop: 09/06/19 20:14 Pantoprazole Sodium (Protonix) 40 mg PO BID [facility] Stop: 09/06/19 20:59 Last Admin: 08/14/19 21:17 Dose: 40 mg Documented by: Polyethylene Glycol (Miralax Powder Packet) 17 gm PO DAILY PRN PRN Reason: Constipation Stop: 09/06/19 20:14 Last Admin: 08/13/19 08:15 Dose: 17 gm Documented by: Prednisone (Prednisone) 5 mg PO QAM [facility] Stop: 09/08/19 08:59 Last Admin: 08/14/19 07:55 Dose: 5 mg Documented by: Sodium Chloride ([place] Nasal) 3 sprays NA QID [facility] Stop: 09/07/19 08:59 Last Admin: 08/14/19 21:16 Dose: 3 sprays Documented by: Sodium Chloride (Sodium Chlor 7% Neb Solution) 4 ml NEB BIDR [facility] Stop: 09/14/19 07:14 Terazosin HCl (Hytrin) 2 mg PO QAM [facility] Stop: 09/07/19 08:59 Last Admin: 08/14/19 07:53 Dose: 2 mg Documented by: Vitamin B Complex (Vitamin B Complex) 1 tab PO DAILY [facility] Stop: 09/07/19 08:59 Last Admin: 08/14/19 07:55 Dose: 1 tab Documented by: (1) Sinusitis Chronicity: unspecified Sinusitis location: unspecified location Qualified Code(s): J32.9 - Chronic sinusitis, unspecified (2) Rectus sheath hematoma Encounter type: initial encounter Qualified Code(s): S30.1XXA - Contusion of abdominal wall, initial encounter
--- NOTE | 2019-08-15 08:04 | Hospitalist Progress Note ---
Date of Service August 15, 2019 Results & Data Vital Signs (Past 12 Hours) Vital Signs Temp Pulse Resp BP BP Pulse Ox 08/15/19 07:14 36.7 C 92 H 16 162/77 H 93 08/15/19 01:08 84 14 95 08/15/19 00:04 161/81 H 08/14/19 23:39 36.7 C 82 20 177/84 H 94 Laboratory Results 08/15/19 08/15/19 Range/Units 05:31 05:31 WBC 6.26 (4.8-10.8) K/uL RBC 2.64 L (4.7-6.1) M/uL Hgb 8.4 L (14.0-18.0) g/dL Hct 25.5 L (42-52) % MCV 96.6 (80-100) fL MCH 31.8 (25-34) pg MCHC 32.9 (32-36) g/dL RDW Std Deviation 56.8 H (36.4-46.3) fL RDW Coeff of Ted 16.4 H (11.5-14.5) % Plt Count 191 (130-400) K/uL MPV 9.8 (7.4-10.4) fL Sodium 139 (136-145) mmol/L Potassium 4.2 (3.5-5.1) mmol/L Chloride 106 (98-107) mmol/L Carbon Dioxide 26 (21-32) mmol/L Anion Gap 7.0 (3-11) BUN 35 H (7-18) mg/dl Creatinine 2.34 H (0.6-1.4) mg/dl Est Cr Clr Drug Dosing 21.7 ml/min Est GFR ( Amer) 27.7 Est GFR (Non-Af Amer) 23.9 BUN/Creatinine Ratio 14.8 (10-20) Glucose 79 (70-99) mg/dl Calcium 8.3 L (8.5-10.1) mg/dl Diagnostic Findings CXR (08/14/2019) FINDINGS: Small parenchymal infiltrate left base. Potential right apical nonconsolidative infiltrate. Progressive mild bibasilar atelectasis. Prior median sternotomy. IMPRESSION: Patchy left basilar and right apical parenchymal infiltrative change. Mild bibasilar atelectatic change. Medications Administered Current Inpatient Medications Acetaminophen (Tylenol) 500 mg PO BIDM PRN PRN Reason: Pain Stop: 09/07/19 18:08 Al Hydrox/Mg Hydrox/Simethicone (Maalox) 15 ml PO Q4H PRN PRN Reason: Dyspepsia Stop: 09/06/19 20:14 [facility]) [facility] Stop: 09/07/19 08:59 Last Admin: 08/14/19 07:55 Dose: 300 mg Documented by: Amoxicillin/Clavulanate Potassium (Augmentin 500mg) 1 tab PO BIDM [facility]; Protocol Stop: 08/18/19 07:59 Last Admin: 08/14/19 17:02 Dose: 1 tab Documented by: Aspirin (Ecotrin Ectab) 81 mg PO [facility] Stop: 09/07/19 08:59 Last Admin: 08/14/19 07:53 Dose: 81 mg Documented by: Atorvastatin Calcium (Lipitor) 80 mg PO [facility] Stop: 09/07/19 08:59 Last Admin: 08/14/19 07:54 Dose: 80 mg Documented by: Benzonatate (Tessalon Perle) 100 mg PO TID PRN PRN Reason: Cough Stop: 09/07/19 18:08 Bisacodyl (Dulcolax) 5 mg PO DAILY [facility] Stop: 09/13/19 08:59 Last Admin: 08/14/19 11:01 Dose: 5 mg Documented by: Budesonide (Pulmicort Respules) 0.5 mg INH BID PRN PRN Reason: Shortness Of Breath Or Wheezin Stop: 09/06/19 20:14 Escitalopram Oxalate (Lexapro Tab) 5 mg PO [facility] Stop: 09/07/19 08:59 Last Admin: 08/14/19 07:54 Dose: 5 mg Documented by: Fluticasone Propionate (Flonase) 2 sprays ALLY DAILY [facility] Stop: 09/07/19 08:59 Last Admin: 08/14/19 07:53 Dose: 2 sprays Documented by: Folic Acid (Folvite) 400 mcg PO DAILY [facility] Stop: 09/07/19 08:59 Last Admin: 08/14/19 07:53 Dose: 400 mcg Documented by: Furosemide (Lasix) 20 mg PO [facility] Stop: 09/11/19 08:59 Last Admin: 08/14/19 07:53 Dose: 20 mg Documented by: Guaifenesin (Mucinex) 1,200 mg PO Q12 [facility] Stop: 09/13/19 20:59 Last Admin: 08/14/19 21:16 Dose: 1,200 mg Documented by: Sodium Chloride (Nss) 250 mls @ 15 mls/hr IV .[id number] PRN PRN Reason: For Transfusion Stop: 09/06/19 20:14 Ipratropium [place] (Atrovent 0.02% 0.5mg/2.5ml) 0.5 mg INH Q6R [facility] Stop: 09/07/19 00:59 Last Admin: 08/15/19 07:13 Dose: 0.5 mg Documented by: Lactobacillus Acidophilus (Floranex) 4 tab PO TIDM [facility] Stop: 09/12/19 11:59 Last Admin: 08/14/19 17:02 Dose: 4 tab Documented by: Levalbuterol HCl (Xopenex 1.25mg/0.5ml Neb) 1.25 mg NEB Q6R [facility] Stop: 09/07/19 00:59 Last Admin: 08/15/19 07:13 Dose: 1.25 mg Documented by: Levalbuterol HCl (Xopenex 1.25mg/3ml Neb) 1.25 mg INH Q4H PRN PRN Reason: Wheezing Stop: 09/06/19 20:14 Lidocaine HCl (Xylocaine 2% Jelly) 1 ml EXT Q6H PRN PRN Reason: Mild Pain Stop: 09/10/19 21:37 Loratadine (Claritin) 10 mg PO DAILY [facility] Stop: 09/08/19 08:59 Last Admin: 08/14/19 07:52 Dose: 10 mg Documented by: Metoprolol Succinate (Toprol Xl) 75 mg PO QAM [facility] Stop: 09/10/19 00:59 Last Admin: 08/14/19 07:55 Dose: 75 mg Documented by: Ondansetron HCl (Zofran) 4 mg IV Q6H PRN PRN Reason: Nausea Stop: 09/06/19 20:14 Pantoprazole Sodium (Protonix) 40 mg PO BID [facility] Stop: 09/06/19 20:59 Last Admin: 08/14/19 21:17 Dose: 40 mg Documented by: Polyethylene Glycol (Miralax Powder Packet) 17 gm PO DAILY PRN PRN Reason: Constipation Stop: 09/06/19 20:14 Last Admin: 08/13/19 08:15 Dose: 17 gm Documented by: Pred[facility]one (Pred[facility]one) [facility] Stop: 09/08/19 08:59 Last Admin: 08/14/19 07:55 Dose: 5 mg Documented by: Sodium Chloride ([place] Nasal) 3 sprays NA QID [facility] Stop: 09/07/19 08:59 Last Admin: 08/14/19 21:16 Dose: 3 sprays Documented by: Sodium Chloride (Sodium Chlor 7% Neb Solution) 4 ml NEB BIDR [facility] Stop: 09/14/19 07:14 Last Admin: 08/15/19 07:13 Dose: 4 ml Documented by: Terazosin HCl (Hytrin) 2 mg PO QAM [facility] Stop: 09/07/19 08:59 Last Admin: 08/14/19 07:53 Dose: 2 mg Documented by: Vitamin B Complex (Vitamin B Complex) 1 tab PO DAILY [facility] Stop: 09/07/19 08:59 Last Admin: 08/14/19 07:55 Dose: 1 tab Documented by:
[2019-08-15] MEDS: LACTOBACILLUS ACIDOPHILUS (FLORANEX) TAB PO SCH ×3 (08:54→17:11)
[2019-08-15] MEDS: AMOXICILLIN/CLAVULANATE 500 MG TAB PO SCH ×2 (08:54→17:11)
[2019-08-15] MEDS: LORATADINE 10 MG TAB PO SCH (08:54)
[2019-08-15] MEDS: FLUTICASONE PROPIONATE NA SPR 16 GM BTL NAE SCH (08:55)
[2019-08-15] MEDS: ASPIRIN 81 MG ECTAB PO SCH (08:55)
[2019-08-15] MEDS: FUROSEMIDE 20 MG TAB PO SCH (08:56)
[2019-08-15] MEDS: TERAZOSIN HCL 1 MG CAP PO SCH (08:56)
[2019-08-15] MEDS: FOLIC ACID 400 MCG TAB PO SCH (08:56)
[2019-08-15] MEDS: ESCITALOPRAM OXALATE 10 MG TAB PO SCH (08:56)
[2019-08-15] MEDS: ATORVASTATIN 40 MG TAB PO SCH (08:56)
[2019-08-15] MEDS: METOPROLOL SUCC 25MG EXT REL TAB PO SCH (08:57)
[2019-08-15] MEDS: PANTOprazole 40 MG TAB PO SCH ×2 (08:57→20:34)
[2019-08-15] MEDS: ALLOPURINOL 300 MG TAB PO SCH (08:57)
[2019-08-15] MEDS: guaiFENesin 600 MG TABCR PO SCH ×2 (08:57→20:34)
[2019-08-15] MEDS: SODIUM CHLORIDE 0.65% NA SOLN 45 ML (OCEAN) SCH ×4 (08:57→20:37)
[2019-08-15] MEDS: predniSONE 5 MG TAB PO SCH (08:57)
[2019-08-15] MEDS: VITAMIN B COMPLEX TAB PO SCH (08:58)
[2019-08-15] MEDS: BISACODYL 5 MG TABEC PO SCH (09:04)
--- NOTE | 2019-08-15 09:21 | Pulmonary Consultation ---
Date of Consultation August 15, 2019 Assessment & Plan (1) Abnormal CXR (chest x-ray): Patient with shortness of breath earlier in the week. Has now received 8 days of antibiotics. Chest x-ray this morning shows possibility of patchy left basilar and right apical parenchymal infiltrative change. Clinical correlation is not made on exam. Patient sputum production has resolved. Patient has no fever or chills. Review of ins and outs shows patient to be 8 L positive since admission Patient was restarted on his oral diuretics Patient's baseline creatinine has bumped slightly to 2.3 with oral diuretics Patient most likely would benefit further from IV diuretics, however he is oxygenating well on room air Swallow evaluation shows some aspiration -continue pured diet per REVENUE MANAGER with supe rvision We will recommend ambulating the patient Continue with attempts at incentive spirometry and flutter valve Patient should remain upright when possible Continue out of bed to chair and increase ambulation hallways as tolerated Patient was excepted at [facility] It is our opinion that the best thing for this patient will be discharge for further rehab and mobilization (2) Bronchitis: Patient is received antibiotics for the entire hospital stay of 8 days Patient was also on antibiotics prior to admission as an outpatient We will check a procalcitonin level If procalcitonin is not elevated, would recommend discontinuing all antibiotics Patient breathing through his nose with his mouth closed No hypoxia at rest Continue to increase ambulation as tolerated Continue incentive spirometry as able Discharge to [facility] when able (3) Chronic kidney disease, unspecified: Patient's baseline creatinine is 2.0-2.1 When patient was admitted creatinine is 2.78 Patient received gentle IV fluids for the last 8 days and is currently 8 L positive for cumulative I's and O's Patient was restarted on oral diuretics and had a minimal bump in creatinine to 2.3 Would recommend continue diuresis and follow strict ins and outs Nephrology is consulted and on board Chronic kidney disease stage: stage 4 (severe) Qualified Code(s): N18.4 - Chronic kidney disease, stage 4 (severe) (4) ASCVD (arteriosclerotic cardiovascular disease): Slight elevation in troponin on admission Patient seen by cardiology No indication for acute coronary syndrome Most likely multifactorial due to anemia, bronchitis, rectus sheath hematoma Patient has been stable Continue home meds (5) Ambulatory dysfunction: Patient extremely deconditioned Has been working with physical therapy while in-patient Have asked staff to ambulate in the hallways today Patient has been accepted to [facility] Primary team will discuss with family Continue fall precautions (6) SONNY (obstructive sleep apnea): Probable sleep apnea with daytime somnolence and snoring at night with BMI of 30.6 Patient is outpatient sleep study. Supervising Physician Co-Signing Physician Notes I saw and evaluated the patient with Bobby Sher, and agree with findings and plan as documented in the note. Patient seen and examined at bedside. States that he feels better since the time he came to the hospital. Denies any chest pain, no shortness of breath, no cough, not bringing up any phlegm, no dizziness, no headache, no nausea, no vomiting. He does state that he is feeling sleepy during the day. 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 Chest x-ray from today is poor inspiratory film rotated to the right and was re ad as possible right upper lobe and left lower lobe infiltrate. CT chest was ordered which was personally reviewed and shows bilateral lower lobe atelectasis. No significant infiltrate appreciated. Minimal pleural effusion. Previous CTs chest was also reviewed which also showed bilateral lower lobe atelectasis and minimal bronchiectasis lower lobe this likely seems to be from chronic aspiration. Consider PPI. For patient's daytime somnolence and lethargy and looking at the body habitus patient will benefit from a sleep study as he likely has sleep apnea. Continue with the course of Antibiotics. Patient was walked in the corridor as per Christos and patient maintained his saturation above 94%. No need for home 02. c/w incentive spirometry and diuresis as tolerated. Needs sleep study as an out patient with Pulmonary/Sleep follow up. I have spent more than 50% of this 40 minute encounter in counseling and/or coordination of care with patient. History of Present Illness Attending Physician: Mehul Her MD History of Present Illness Attending: Dr. Vazquez This is an 89-year-old male that was admitted on 08/07/2019 for increasing shortness of breath and what appeared to be bronchitis. He had no evidence of infiltrate at that time. He did have acute on chronic renal failure with a creatinine of 2.78 (baseline 2.0-2.1) he was also found to have some hyponatremia and chronic anemia. At the time, he was extremely weak and was admitted after discovery of a rectus sheath hematoma by CT scan. There is slight elevation of troponin which was believed to be elevated secondary chronic renal insufficiency, stage IV kidney disease, and anemia from rectus sheath hematoma. An echocardiogram was performed and showed a left ventricular ejection fraction that was preserved and no wall motion abnormalities. The patient has been gently hydrated since admission and is currently 8 L ahead. He is currently oxygenating well on room air but has increased supplemental oxygen requirements with ambulation. Repeat chest x-ray shows persistent atelectasis and probable fluid overload. There is also an area in the right upper lobe there is most likely fluid. Concern is been raised regarding this area for early infiltrate. Patient has been on antibiotics since admission. Past medical history includes CAD (status post CABG x4, PCI with stent to the circumflex, PCI with stent to the RCA), stage IV renal insufficiency, hypertension, hyperlipidemia, calcific aortic stenosis (mild to moderate), deconditioning, question of aspiration, chronic anemia. He feels as though he is much improved over the last 8 days. He denies any fever, chills, sweats. He has no chest pain or tightness. He does have some pain with palpation to the left lower quadrant over the area of ecchymosis from his rectus sheath hematoma. He has no leg pain and no calf pain. He denies any significant cough or production of sputum. He did try to ambulate yesterday but staff was unable to move him beyond the door to the hallway. He was a 2 person assist yesterday. The patient has no acute complaints today. Allergies Allergy/AdvReac Type Severity Reaction Status Date / Time niacin Allergy Unknown UNKNOWN Verified 08/07/19 16:55 Home Medications Home Medications Medication Instructions Recorded Confirmed Type acetaminophen [Tylenol Extra 500 mg PO BIDM PRN 08/07/19 08/07/19 History Strength] allopurinol [Zyloprim] 300 mg PO QAM 08/07/19 08/07/19 History aspirin 81 mg PO QAM 08/07/19 08/07/19 History atorvastatin [Lipitor] 80 mg PO QAM 08/07/19 08/07/19 History benzonatate [Tessalon Perles] 100 mg PO TID PRN 08/07/19 08/07/19 History budesonide [Pulmicort] 0.5 mg INHALATION BID PRN 08/07/19 08/07/19 History cefprozil 250 mg PO Q12H 08/07/19 08/07/19 History clobetasol [Cormax] 1 applic TOPICAL UD 08/07/19 08/07/19 History escitalopram oxalate [Lexapro] 5 mg PO QAM 08/07/19 08/07/19 History fluticasone propionate 2 spray INTRANASAL DAILY 08/07/19 08/07/19 History folic acid 400 mcg PO DAILY 08/07/19 08/07/19 History furosemide [Lasix] 20 mg PO QAM 08/07/19 08/07/19 History levalbuterol HCl [Xopenex] 1.25 mg INHALATION Q4H PRN 08/07/19 08/07/19 History loratadine [Claritin] 10 mg PO DAILY 08/07/19 08/07/19 History metoprolol succinate [Toprol XL] 50 mg PO QAM 08/07/19 08/07/19 History pantoprazole [Protonix] 40 mg PO BID 08/07/19 08/07/19 History prednisone 5 mg PO QAM 08/07/19 08/07/19 History prednisone See Rx Instructions .ROUTE .COMPLEX 08/07/19 08/07/19 History ranitidine HCl [Zantac] 150 mg PO BID 08/07/19 08/07/19 History terazosin 2 mg PO QAM 08/07/19 08/07/19 History tramadol [Ultram] 50 mg PO TID PRN 08/07/19 08/07/19 History vitamin B complex [B-Complex] 1 tab PO DAILY 08/07/19 08/07/19 History Patient History Medical History Sepsis (Acute) Aspiration pneumonia (Chronic) CAD, multiple vessel Chronic kidney disease, stage IV (severe) Dyslipidemia GERD without esophagitis History of melanoma in situ Hyperparathyroidism, secondary renal Hypertension Surgical History H/O percutaneous transluminal coronary angioplasty History of appendectomy S/P CABG x 4 Family History Mother , Age 74 Diabetes Heart disease Stroke Father , Age 72 Prostate cancer Sister Arthritis of both knees Arthritis of both feet Heart disease Sister No problems noted. Sister No problems noted. Brother No problems noted. Social History Preferred Language: Armenian Communication Ability: Effective Beliefs That Will Affect Care: Buddhism Buddhism Beliefs: MORMON Current Living Situation: Family Current Living Situation Comment: LIVES WITH DAUGHTERS Other Information That Helps Us Care for You: No Feels Safe at Home: Yes Safety Concerns: Feels Safe At This Time Smoking Status: Never smoker Hx Alcohol Use: Yes Alcohol type: beer Hx Substance Use: No Review of Systems Review of Systems: All systems reviewed & are unremarkable except as noted in HPI & below Physical Exam Physical Exam: GENERAL : No acute distress. Hard of hearing. Pleasant EYES: No icterus, gaze conjugate. Pupils equal and round and reactive to light NOSE: No evidence of epistaxis. MOUTH: No lesions or candidiasis. Tongue is midline. No facial droop. No evidence of blood in the posterior oropharynx. No evidence of mucus draining in the posterior oropharynx.Mallampati score 4 NECK: Supple. No appreciation of stridor or transmitted wheezes LUNGS: Generally CTA B/L, no wheezes. Faint crackles in the right base. Decreased breath sounds bilaterally in the bases. No appreciation of any rhonchi. No paradoxical chest wall movement. HEART: Regular, rate controlled. No appreciation of gallops, rubs. Positive 2 out of 6 systolic murmur appreciated best at apex ABDOMEN: Soft, ND, BS Present. Ecchymosis has improved. There is still some tenderness to palpation in the left upper and lower quadrant. There is no guarding. No high-pitched bowel sounds. EXTREMITIES: No LE edema, pedal pulses intact and equal bilaterally. Red socks in place. No calf pain. NEURO: A&OX3. Sitting upright in bedside chair. Hard of hearing but answers questions appropriately when he is able to hear. Knows that he is in the hospital. Results & Data Vital Signs (Past 12 Hours) Vital Signs Temp Pulse Resp BP BP Pulse Ox 08/15/19 07:14 36.7 C 92 H 16 162/77 H 93 08/15/19 01:08 84 14 95 08/15/19 00:04 161/81 H 08/14/19 23:39 36.7 C 82 20 177/84 H 94 Laboratory Results 08/15/19 05:31 08/15/19 05:31 Diagnostic Findings XR chest 1V portable CLINICAL HISTORY: eval pna pneumonitis COMPARISON STUDY: 08/07/2019 FINDINGS: Small parenchymal infiltrate left base. Potential right apical nonconsolidative infiltrate. Progressive mild bibasilar atelectasis. Prior median sternotomy. IMPRESSION: Patchy left basilar and right apical parenchymal infiltrative change. Mild bibasilar atelectatic change. Electronically signed by: Rafael Nowak M.D. 08/14/2019 8:55 PM PG Care Time/CCT Total # of Minutes Spent Total Time Spent with Patient: Total time spent is greater than 50% in coordination of care (as documented) at patient's floor/unit and/or counseling patient: 30 minutes including discussion with hospitalist team, physical therapy, nephrology.
--- NOTE | 2019-08-15 09:27 | Nephrology Progress Note ---
Date of Service August 15, 2019 Assessment & Plan (1) Chronic kidney disease, unspecified: baseline creatinine 2.3-2.5 in 2019 as OP w/ some lability and w/ 1.5 gm daily proteinuria most recently. While he had TAYLOR on presentation, this has since resolved w/ gentle hydration. his urine sediment on presentation was concentrated but bland apart from expected dipstick proteinuria. Cr today of 2.3 at baseline. his chemistries have been acceptable. -daily bmp while in house -No need for iv fluids (2) HTN (hypertension): BP is slightly above target but acceptable. No changes; cont metoprolol, low dose lasix, terazosin -if needed add prn hydralazine po (3) Acute on chronic anemia: notable that despite advanced CKD this pt is generally as OP not anemic or only mildly so. suspect the acute worsening is d/t rectal sheath hematoma. Iron saturation of 16%. -pt is off IV abtx; will start iron load -nephro will set up for anemia clinic after d/c -monitor hgb daily. -transfuse if <7 or sx Subjective seen on rounds this am 1020; feeling better but still weak; not sob, no uncontrolled musculoskeletal or groin pain, no voiding complaints, no edema, no chest pain; ambulates w/ PT but state he feels very weak doing this ambulates w/ PT but state he feels very weak doing this Review of Systems Review of Systems: All systems reviewed & are unremarkable except as noted in HPI & below Physical Exam Constitutional: well developed and well nourished up in chair on ra Eyes: EOM intact bilaterally; no EOM movement deficit ENMT: Ears: + hearing impairment (stable chronic); no external ear abnormality Nose: no external nose abnormality Mouth: + dry oral mucous membranes Neck: no nuchal rigidity Respiratory: normal respiratory effort Auscultation: + breath sounds absent (L base), + diminished lung sounds and + crackles (more at bases / posterior dorado today; better than 10/25 exam) Cardiovascular: RRR, no murmur, no edema Gastrointestinal (Abdomen): Inspection/Auscultation: + abdomen distended and normal bowel sounds Percussion/Palpation: abdomen soft; abdomen nontender Musculoskeletal: Extremities: strength 5/5 throughout Skin: no rashes, warm and dry Trauma: + hematoma (extensive L flank/gluteal region) Neurologic: cao, fluent but limited speech Psychiatric: Orientation: alert, oriented to person and oriented to place Affect: euthymic affect and + flat affect Results & Data Vital Signs (Past 12 Hours) Vital Signs Temp Pulse Resp BP BP Pulse Ox 08/15/19 07:14 36.7 C 92 H 16 162/77 H 93 08/15/19 01:08 84 14 95 08/15/19 00:04 161/81 H 08/14/19 23:39 36.7 C 82 20 177/84 H 94 Laboratory Results 08/15/19 05:31 08/15/19 05:31 t stn 16% (1) Chronic kidney disease, unspecified Chronic kidney disease stage: stage 4 (severe) Qualified Code(s): N18.4 - Chronic kidney disease, stage 4 (severe) (2) HTN (hypertension) Hypertension type: essential hypertension Qualified Code(s): I10 - Essential (primary) hypertension
[2019-08-15] MEDS ORDERED: IRON SUCROSE 300 MG in SODIUM CHLORIDE 0.9% 250 ML IV ONE (10:00)
--- NOTE | 2019-08-15 11:34 | CT Scan Report ---
CT OF THE CHEST WITHOUT IV CONTRAST CLINICAL HISTORY: Evaluate for infiltrate or edema. COMPARISON STUDY: Chest radiograph August 14, 2019 CT DOSE: 359.23 mGy.cm TECHNIQUE: Axial images of the chest were obtained without IV contrast. Images were reviewed in the axial, sagittal, and coronal planes. IV contrast was not administered for this examination. Automat ed exposure control was utilized for the study. A dose lowering technique was utilized adhering to t he principles of ALARA. FINDINGS: There are median sternotomy wires and postoperative findings from bypass grafting. The hea rt is moderately enlarged. Extensive coronary artery calcification is noted. There is no pericardial effusion. A trace right pleural effusion is noted. There is no pneumothorax. Linear bilateral lower l obe opacities reflect atelectasis. There is also atelectasis within the lingula. The central airways are patent. Mild bronchial wall thickening is noted. There is no consolidation to suggest pneumonia. Minimal groundglass opacities are noted. IMPRESSION: 1. Lingular and bilateral lower lobe opacities consistent with atelectasis. No consolidation to sugge st pneumonia. 2. Mild bilateral lower lobe bronchial wall thickening. 3. Trace right pleural effusion. 4. Mild nonspecific groundglass opacities. Electronically signed by: Jordy Glover M.D. 08/15/2019 11:33 AM
--- NOTE | 2019-08-15 15:34 | Internal Med Progress Note ---
Date of Service August 15, 2019 Assessment & Plan (1) Ambulatory dysfunction: I recommend mobilization which could be accomplished in the rehab setting. This would benefit his pulmonary toilet and cardiovascular status. The longer his performance level remains low, the greater his chance of medical complications. Subjective In to check on his status for inpatient rehab. As noted he is very frail and suffered a rectus sheath hematoma. His overall performance has been poor both before and after the injury. He has been cared for in the hospital setting. His pulmonary toilet has been poor secondary to inactivity. Underlying medical issues include renal insufficiency and ASCAD. He is not particularly short of breath at rest. Dyspnea with activity as expected. No new neurological changes. No fever or chills. No GI/ changes. His current medication profile is well tolerated. Physical Exam Physical Exam: He is very frail Eyes: no acute issues Respiratory: atelectasis noted in the bases. No wheezing or rhonchi. Exchange is fair Cardiovascular: rate is stable. No JVD suggested. No substantial edema Gastrointestinal (Abdomen): functional and nontender on gentle palpation Neurologic: no focal neurological changes. Psychiatric: calm and interactive....hearing is quit impaired Results & Data Vital Signs (Past 12 Hours) Vital Signs Temp Pulse Resp BP BP Pulse Ox 08/15/19 13:16 81 16 93 08/15/19 12:26 36.6 C 86 18 118/65 91 08/15/19 11:38 36.8 C 83 18 127/69 94 08/15/19 10:39 36.6 C 87 20 139/75 96 08/15/19 07:14 36.7 C 92 H 16 162/77 H 93
[2019-08-16] MEDS: LEVALBUTEROL 1.25MG/0.5ML NEB NEB SCH ×4 (01:08→18:57)
[2019-08-16] MEDS: IPRATROPIUM BROMIDE NEB SOLN 0.02% 2.5 ML VIAL INH SCH ×4 (01:08→18:58)
[2019-08-16 06:25] LABS: BUN Creatinine Ratio 14.5 (10-20); Calcium 8.2 mg/dl (8.5-10.1); Creatinine Clr Calc Pharmacy 23.6 ml/min; Est GFR (African American) 30.7; Est GFR (Non-African American) 26.5; Potassium 4.1 mmol/L (3.5-5.1)
[2019-08-16] MEDS: SODIUM CHLOR 7% 4 ML NEB NEB SCH ×2 (07:30→18:58)
--- NOTE | 2019-08-16 07:55 | Hospitalist Progress Note ---
Date of Service August 16, 2019 Assessment & Plan (1) Rectus sheath hematoma: Noted to have left rectus sheath hematoma on CAT scan measuring 8 x 4 cm s/p fall Has been on aspirin for CAD with EMILIA Hemoglobin remains essent.stable Doubt any increasing hematoma Showing the natural course of rectus sheath hematoma, ecchymosis visible below umbilicus and spreading down to pt's groin, L flank >R flank Hemoglobin is down to 8-9 from 10.6 on admission, likely dilut. from intravenous fluid Denies any more pain Will monitor CBC Penile ecchymosis Secondary to rectus sheath hematoma, spreading down the patient's groin Urology was consulted, recommend scrotal support, ice packs as needed Anemia -seems multifactorial, secondary to hematoma, CKD, iron deficiency - iron sat. 16% -plan to start on iron supplement/infs. after Abx treatment (2) Bronchitis: He has been complaining of cough likely secondary to sinobronchitis as an outpatient He received 2 doses of IM ceftriaxone as an outpatient Noted to have acute sinusitis on CT scan of the head Bibasilar densities secondary to atelectasis/pneumonitis on admission Was started on IV Zosyn, switched to PO Augmentin on 08/11, and ISB,flutter valve, breathing treatments, guaifenesin Patient continues to be dyspneic with any mild ambulation, physical exam not much improved, obtained follow up chest x-ray (08/14) -x-ray showed progressive bibasilar atelectasis and patchy left basilar and right apical parenchymal infiltrative change, consulted pulmonology for their input Pulmonology obtained chest CT as chest x-ray was inadequate, only showed atelectasis mild bronchiectasis, no pneumoniarecommend to improve mobility and rehab, also recommended sleep study as outpatient once patient is discharged from the hospital, lastly commented on possible chronic aspiration therefore aspiration precautions should be implemented also when patient is no longer in the hospital (all these results were discussed with patient's daughter Rylee Albarado in detail) Procalcitonin (08/15) negative - 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 dulcolax daily scheduled cont. probiotic, given pt is on Abx abdomen is soft, but ecchymosis present from rectus m. sheath hematoma will cont. to monitor closely (3) Elevated troponin: Mild elevation of troponin Likely secondary to abnormal renal function and demand ischemia,doubt any ACS Appreciate cardiology input and recommendation Cardiac status remains stable (4) Acute renal failure superimposed on chronic kidney disease: Noted to have a creatinine of 2.78 on admission with increasing BUN Getting cautious amount intravenous fluid Creatinine has been improving, currently back to baseline Per outpt labs, Cr has been worsening recently Nephrology has been consulted for further recommendation (5) ASCVD (arteriosclerotic cardiovascular disease): Has history of CAD status post EMILIA placement Appreciate cardiology input and recommendation (6) Sinusitis: on Zosyn on admission (08/07) Switched to PO Augmentin on 08/11 (finished 10 day course, procalcitonin negative, d/c abx) Possible Parkinson disease/benign essential tremor Noted to have parkinsonian type movement in the ED Neurology evaluation as requested by the daughter, likely essential tremor, no new medications recommended, pt may follow up as outpt w/ neurology (7) DVT prophylaxis: SCDs for now No pharmacologic anticoagulation due to rectus sheath hematoma PT and OT evaluation for possible placement - accepted to [facility], plan to discharge patient back to [facility] tomorrow Discussed clinical status with daughters and pt's in detail Subjective No acute events overnight. Patient is feeling well and talkative this morning, then was able to walk in the hallway as well. Denies any chest pain, shortness of breath, nausea, vomiting, abdominal pain. He has good appetite. Care coordination/family communication Yesterday evening discussed with patient's daughter Rylee Albarado the clinical status of her father, pulmonary consultation obtained and chest CT. 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 She agreed and understood and would like to meet with medical team prior to patient's discharge. Patient has been accepted to [facility]hab. Update: Talked to patient's daughter Rylee Albarado today on the phone as she was not able to make it today, [place] the airport. She would still very much prefer to be present and talk to the medical team prior to her father's discharge to rehab. Agreed to meet her tomorrow before lunch time. Review of Systems Constitutional: + fatigue and + weakness; no fever and no chills Physical Exam Physical Exam: Elderly obese male laying in bed, in no acute distress Constitutional: well developed and well nourished; no acute distress Eyes: PERRL, conjunctivae normal, anicteric sclerae ENMT: external ear and nose normal, oropharynx normal Neck: supple, no JVD Respiratory: normal respiratory effort; no respiratory distress and no labored breathing Auscultation: + diminished lung sounds and + rhonchi (mild, R>L); no wheezes Cardiovascular: RRR, no murmur, no edema Rate/Rhythm: regular rate and regular rhythm Heart Sounds: + murmur (systolic III/, at RUSB) Chest (Breasts): Chest: normal inspection of chest Gastrointestinal (Abdomen): Inspection/Auscultation: normal bowel sounds and + abdominal wall ecchymosis; + abdomen abnormal to inspection (Ecchymosis spreading down to the groin area, both flanks L>R) and abdomen not distended Percussion/Palpation: abdomen soft; abdomen nontender Musculoskeletal: Head/Neck/Chest: normocephalic, head atraumatic and neck supple Extremities: extremities normal to inspection Skin: no rashes, warm and dry Neurologic: PERRL, EOMI, accommodation nl, no face palsy, no dysarthria normal touch/pain/proprioception, CN's II-XI intact bilaterally and moves all extremities Cranial Nerves: normal facial strength and tongue midline; + hearing impairment Psychiatric: Orientation: alert and oriented x 3 Affect: euthymic affect Genitourinary: + penis abnormality (penile ecchymosis); no CVA tenderness Lymphatic: no lymphedema and no cervical lymphadenopathy Results & Data Vital Signs (Past 12 Hours) Vital Signs Temp Pulse Resp BP Pulse Ox 08/16/19 07:45 36.3 C L 84 19 180/84 H 96 08/16/19 07:33 78 22 98 08/16/19 07:29 78 22 98 08/16/19 01:08 84 18 94 08/15/19 22:41 36.8 C 83 20 133/71 92 Laboratory Results 08/16/19 08/15/19 08/15/19 Range/Units 05:17 09:51 09:00 Sodium 140 (136-145) mmol/L Potassium 4.1 (3.5-5.1) mmol/L Chloride 107 (98-107) mmol/L Carbon Dioxide 27 (21-32) mmol/L Anion Gap 6.0 (3-11) BUN 31 H (7-18) mg/dl Creatinine 2.15 H (0.6-1.4) mg/dl Est Cr Clr Drug Dosing 23.6 ml/min Est GFR ( Amer) 30.7 Est GFR (Non-Af Amer) 26.5 BUN/Creatinine Ratio 14.5 (10-20) Glucose 78 (70-99) mg/dl Calcium 8.2 L (8.5-10.1) mg/dl Procalcitonin 0.08 (0-0.5) ng/ml Stl C. diff Tox B Gene Negative Cdiff Gene (Neg) Medications Administered Current Inpatient Medications Acetaminophen (Tylenol) 500 mg PO BIDM PRN PRN Reason: Pain Stop: 09/07/19 18:08 Al Hydrox/Mg Hydrox/Simethicone (Maalox) 15 ml PO Q4H PRN PRN Reason: Dyspepsia Stop: 09/06/19 20:14 Allopurinol (Zyloprim) 300 mg PO [facility] Stop: 09/07/19 08:59 Last Admin: 08/15/19 08:57 Dose: 300 mg Documented by: Amoxicillin/Clavulanate Potassium (Augmentin 500mg) 1 tab PO BIDM [facility]; Protocol Stop: 08/18/19 07:59 Last Admin: 08/15/19 17:11 Dose: 1 tab Documented by: Aspirin (Ecotrin Ectab) 81 mg PO [facility] Stop: 09/07/19 08:59 Last Admin: 08/15/19 08:55 Dose: 81 mg Documented by: Atorvastatin Calcium (Lipitor) 80 mg PO [facility] Stop: 09/07/19 08:59 Last Admin: 08/15/19 08:56 Dose: 80 mg Documented by: Benzonatate (Tessalon Perle) 100 mg PO TID PRN PRN Reason: Cough Stop: 09/07/19 18:08 Bisacodyl (Dulcolax) 5 mg PO DAILY [facility] Stop: 09/13/19 08:59 Last Admin: 08/15/19 09:04 Dose: 5 mg Documented by: Budesonide (Pulmicort Respules) 0.5 mg INH BID PRN PRN Reason: Shortness Of Breath Or Wheezin Stop: 09/06/19 20:14 Escitalopram Oxalate (Lexapro Tab) 5 mg PO QAM [facility] Stop: 09/07/19 08:59 Last Admin: 08/15/19 08:56 Dose: 5 mg Documented by: Fluticasone Propionate (Flonase) 2 sprays ALLY DAILY [facility] Stop: 09/07/19 08:59 Last Admin: 08/15/19 08:55 Dose: 2 sprays Documented by: Folic Acid (Folvite) 400 mcg PO DAILY [facility] Stop: 09/07/19 08:59 Last Admin: 08/15/19 08:56 Dose: 400 mcg Documented by: Furosemide (Lasix) 20 mg PO QAM [facility] Stop: 09/11/19 08:59 Last Admin: 08/15/19 08:56 Dose: 20 mg Documented by: Guaifenesin (Mucinex) 1,200 mg PO Q12 [facility] Stop: 09/13/19 20:59 Last Admin: 08/15/19 20:34 Dose: 1,200 mg Documented by: Sodium Chloride (Nss) 250 mls @ 15 mls/hr IV .[id number] PRN PRN Reason: For Transfusion Stop: 09/06/19 20:14 Ipratropium [place] (Atrovent 0.02% 0.5mg/2.5ml) 0.5 mg INH Q6R [facility] Stop: 09/07/19 00:59 Last Admin: 08/16/19 07:31 Dose: 0.5 mg Documented by: Lactobacillus Acidophilus (Floranex) 4 tab PO TIDM [facility] Stop: 09/12/19 11:59 Last Admin: 08/15/19 17:11 Dose: 4 tab Documented by: Levalbuterol HCl (Xopenex 1.25mg/0.5ml Neb) 1.25 mg NEB Q6R [facility] Stop: 09/07/19 00:59 Last Admin: 08/16/19 07:31 Dose: 1.25 mg Documented by: Levalbuterol HCl (Xopenex 1.25mg/3ml Neb) 1.25 mg INH Q4H PRN PRN Reason: Wheezing Stop: 09/06/19 20:14 Lidocaine HCl (Xylocaine 2% Jelly) 1 ml EXT Q6H PRN PRN Reason: Mild Pain Stop: 09/10/19 21:37 Loratadine (Claritin) 10 mg PO DAILY [facility] Stop: 09/08/19 08:59 Last Admin: 08/15/19 08:54 Dose: 10 mg Documented by: Metoprolol Succinate (Toprol Xl) 75 mg PO QAM [facility] Stop: 09/10/19 00:59 Last Admin: 08/15/19 08:57 Dose: 75 mg Documented by: Ondansetron HCl (Zofran) 4 mg IV Q6H PRN PRN Reason: Nausea Stop: 09/06/19 20:14 Pantoprazole Sodium (Protonix) 40 mg PO BID [facility] Stop: 09/06/19 20:59 Last Admin: 08/15/19 20:34 Dose: 40 mg Documented by: Polyethylene Glycol (Miralax Powder Packet) 17 gm PO DAILY PRN PRN Reason: Constipation Stop: 09/06/19 20:14 Last Admin: 08/13/19 08:15 Dose: 17 gm Documented by: Prednisone (Prednisone) 5 mg PO QAM [facility] Stop: 09/08/19 08:59 Last Admin: 08/15/19 08:57 Dose: 5 mg Documented by: Sodium Chloride ([place] Nasal) 3 sprays NA QID [facility] Stop: 09/07/19 08:59 Last Admin: 08/15/19 20:37 Dose: 3 sprays Documented by: Sodium Chloride (Sodium Chlor 7% Neb Solution) 4 ml NEB BIDR [facility] Stop: 09/14/19 07:14 Last Admin: 08/16/19 07:30 Dose: 4 ml Documented by: Terazosin HCl (Hytrin) 2 mg PO QAM [facility] Stop: 09/07/19 08:59 Last Admin: 08/15/19 08:56 Dose: 2 mg Documented by: Vitamin B Complex (Vitamin B Complex) 1 tab PO DAILY [facility] Stop: 09/07/19 08:59 Last Admin: 08/15/19 08:58 Dose: 1 tab Documented by: (1) Sinusitis Chronicity: unspecified Sinusitis location: unspecified location Qualified Code(s): J32.9 - Chronic sinusitis, unspecified (2) Rectus sheath hematoma Encounter type: initial encounter Qualified Code(s): S30.1XXA - Contusion of abdominal wall, initial encounter
[2019-08-16] MEDS: AMOXICILLIN/CLAVULANATE 500 MG TAB PO SCH (08:11)
[2019-08-16] MEDS: LORATADINE 10 MG TAB PO SCH (08:11)
[2019-08-16] MEDS: LACTOBACILLUS ACIDOPHILUS (FLORANEX) TAB PO SCH ×3 (08:11→16:43)
[2019-08-16] MEDS: FLUTICASONE PROPIONATE NA SPR 16 GM BTL NAE SCH (08:11)
[2019-08-16] MEDS: ASPIRIN 81 MG ECTAB PO SCH (08:11)
[2019-08-16] MEDS: FOLIC ACID 400 MCG TAB PO SCH (08:11)
[2019-08-16] MEDS: ESCITALOPRAM OXALATE 10 MG TAB PO SCH (08:12)
[2019-08-16] MEDS: TERAZOSIN HCL 1 MG CAP PO SCH (08:12)
[2019-08-16] MEDS: FUROSEMIDE 20 MG TAB PO SCH (08:12)
[2019-08-16] MEDS: SODIUM CHLORIDE 0.65% NA SOLN 45 ML (OCEAN) SCH ×4 (08:13→20:38)
[2019-08-16] MEDS: ATORVASTATIN 40 MG TAB PO SCH (08:13)
[2019-08-16] MEDS: guaiFENesin 600 MG TABCR PO SCH ×2 (08:13→20:38)
[2019-08-16] MEDS: predniSONE 5 MG TAB PO SCH (08:13)
[2019-08-16] MEDS: ALLOPURINOL 300 MG TAB PO SCH (08:14)
[2019-08-16] MEDS: VITAMIN B COMPLEX TAB PO SCH (08:14)
[2019-08-16] MEDS: METOPROLOL SUCC 25MG EXT REL TAB PO SCH (08:14)
[2019-08-16] MEDS: PANTOprazole 40 MG TAB PO SCH ×2 (08:14→20:37)
[2019-08-16] MEDS: BISACODYL 5 MG TABEC PO SCH (08:20)
--- NOTE | 2019-08-16 08:21 | Nephrology Progress Note ---
Date of Service August 16, 2019 Assessment & Plan (1) Acute on chronic anemia: notable that despite advanced CKD this pt is generally as OP not anemic or only mildly so. suspect the acute worsening is d/t rectal sheath hematoma. Iron saturation of 16%. -getting venofer load > 300 mg yesterday; for another 300 mg today; plan another 300 mg tomorrow -nephro will set up for anemia clinic after d/c -monitor hgb daily. -transfuse if <7 or sx -will sign off; pls call if ? (2) Chronic kidney disease, unspecified: baseline creatinine 2.3-2.5 in 2019 as OP w/ some lability and w/ 1.5 gm daily proteinuria most recently. While he had TAYLOR on presentation, this has since resolved w/ gentle hydration. his urine sediment on presentation was concentrated but bland apart from expected dipstick proteinuria. Cr today of 2.3 at baseline. his chemistries have been acceptable. -daily bmp while in house -No need for iv fluids -no need for earlier than otherwise planned renal f/u at d/c; he should keep regularly scheduled CKD appt (3) HTN (hypertension): BP is slightly above target but acceptable. No changes; cont metoprolol, low dose lasix, terazosin -if needed add prn hydralazine po Subjective seen on rounds late this evening; ate most of meal; admits to ongoing flank/scrotal pain; ambulated today "did OK"; no sob, no edema; denies voiding concerns. Review of Systems Review of Systems: All systems reviewed & are unremarkable except as noted in HPI & below Physical Exam Constitutional: well developed and well nourished up in chair on RA dosing but wakens fully Eyes: EOM intact bilaterally; no EOM movement deficit ENMT: Ears: + hearing impairment (stable chronic); no external ear abnormality Nose: no external nose abnormality Mouth: + dry oral mucous membranes Neck: no nuchal rigidity Respiratory: normal respiratory effort Auscultation: + diminished lung sounds (angie L base) and + crackles (more at bases / posterior dorado; same as yesterday) Cardiovascular: RRR, no murmur, no edema Gastrointestinal (Abdomen): Inspection/Auscultation: + abdomen distended and normal bowel sounds Percussion/Palpation: abdomen soft; abdomen nontender Musculoskeletal: Extremities: strength 5/5 throughout Skin: no rashes, warm and dry Trauma: + hematoma (extensive L flank/gluteal region) Psychiatric: Orientation: alert, oriented to person and oriented to place Affect: euthymic affect and + flat affect Mood: + depressed mood Results & Data Vital Signs (Past 12 Hours) Vital Signs Temp Pulse Resp BP Pulse Ox 08/16/19 07:45 36.3 C L 84 19 180/84 H 96 08/16/19 07:33 78 22 98 08/16/19 07:29 78 22 98 08/16/19 01:08 84 18 94 08/15/19 22:41 36.8 C 83 20 133/71 92 Laboratory Results 08/15/19 05:31 08/16/19 05:17 (1) Chronic kidney disease, unspecified Chronic kidney disease stage: stage 4 (severe) Qualified Code(s): N18.4 - Chronic kidney disease, stage 4 (severe) (2) HTN (hypertension) Hypertension type: essential hypertension Qualified Code(s): I10 - Essential (primary) hypertension
[2019-08-16] MEDS ORDERED: IRON SUCROSE 300 MG in SODIUM CHLORIDE 0.9% 250 ML IV SCH (08:30)
--- NOTE | 2019-08-16 10:32 | Pulmonology Progress Note ---
Date of Service August 16, 2019 Assessment & Plan (1) Abnormal CXR (chest x-ray): CT chest 08/15/19 reviewed along with Previous CT chest which also showed bilateral lower lobe atelectasis and minimal bronchiectasis lower lobe this likely seems to be from chronic aspiration. Patient already on PPI. Swallow evaluation shows some aspiration -continue pured diet per ACID OPERATOR with supervision Recommend ambulating the patient Continue with attempts at incentive spirometry and flutter valve Patient should remain upright when possible Continue out of bed to chair and increase ambulation hallways as tolerated Patient was excepted at [facility] It is our opinion that the best thing for this patient will be discharge for further rehab and mobilization No further recommendations from pulmonary perspective. (2) Bronchitis: Patient is received antibiotics for the entire hospital stay of 8 days Patient was also on antibiotics prior to admission as an outpatient Procalcitonin done 08/15/2019- recommend DC antibiotics No hypoxia at rest Continue to increase ambulation as tolerated Continue incentive spirometry as able Discharge to [facility] when able (3) Chronic kidney disease, unspecified: Patient's baseline creatinine is 2.0-2.1 When patient was admitted creatinine is 2.78 Patient received gentle IV fluids for the last 8 days and is currently 8 L positive for cumulative I's and O's Patient was restarted on oral diuretics and had a minimal bump in creatinine to 2.3 Would recommend continue diuresis as tolerated and follow strict ins and outs Nephrology is consulted and on board Chronic kidney disease stage: stage 4 (severe) Qualified Code(s): N18.4 - Chronic kidney disease, stage 4 (severe) (4) ASCVD (arteriosclerotic cardiovascular disease): (5) Ambulatory dysfunction: Patient extremely deconditioned Has been working with physical therapy while in-patient Have asked staff to ambulate in the hallways today Patient has been accepted to [facility] Primary team will discuss with family Continue fall precautions (6) SONNY (obstructive sleep apnea): Probable sleep apnea with daytime somnolence and snoring at night with BMI of 30.6 Patient will benefit from outpatient polysomnography. Needs to follow-up with pulmonary post discharge. Subjective Patient seen and examined at bedside. No acute distress, no adverse events overnight. Patient was sleeping on his bed at the time of examination. Patient is hard to hear. Denies any chest pain, no shortness of breath, no headache, no nausea, no vomiting. Urinating well. Denies any diarrhea. No cough. Saturating 91% on room air at rest. Review of Systems Review of Systems: All systems reviewed & are unremarkable except as noted in HPI & below Physical Exam Physical Exam: Constitutional: No acute distress HEENT: EOMI, PERRLA, Mallampati score 4 Respiratory system: Decreased air entry bilaterally, mild crackles lower lobe, no wheeze, no rhonchi CVS: S1-S2 positive, positive 2 out of 6 systolic murmur appreciated at apex, no gallops Abdomen: Soft, nontender, nondistended, positive bowel sounds x4, obese Extremities: +2 pulses bilaterally radialis/ dorsalis pedis, no edema, no cyanosis Neuro: Awake alert oriented x3 Psych: Normal mood and affect G/U: No Sim Lymphatic: no cervical or axillary lymphadenopathy Results & Data Vital Signs (Past 12 Hours) Vital Signs Temp Pulse Resp BP Pulse Ox 08/16/19 07:45 36.3 C L 84 19 180/84 H 96 08/16/19 07:33 78 22 98 08/16/19 07:29 78 22 98 08/16/19 01:08 84 18 94 08/15/19 22:41 36.8 C 83 20 133/71 92 08/15/19 05:31 08/16/19 05:17 PG Care Time/CCT Total # of Minutes Spent Total Time Spent with Patient: Total time spent is greater than 50% in coordination of care (as documented) at patient's floor/unit and/or counseling patient:
[2019-08-17] MEDS: LEVALBUTEROL 1.25MG/0.5ML NEB NEB SCH ×3 (01:12→13:28)
[2019-08-17] MEDS: IPRATROPIUM BROMIDE NEB SOLN 0.02% 2.5 ML VIAL INH SCH ×3 (01:13→13:28)
[2019-08-17] MEDS: SODIUM CHLOR 7% 4 ML NEB NEB SCH (06:55)
[2019-08-17 07:25] VITALS: TEMP 98.1; O2SAT 94
[2019-08-17] MEDS ORDERED: IRON SUCROSE 300 MG in SODIUM CHLORIDE 0.9% 250 ML IV SCH (08:00)
[2019-08-17] MEDS: ALLOPURINOL 300 MG TAB PO SCH (08:23)
[2019-08-17] MEDS: TERAZOSIN HCL 1 MG CAP PO SCH (08:23)
[2019-08-17] MEDS: ATORVASTATIN 40 MG TAB PO SCH (08:23)
[2019-08-17] MEDS: predniSONE 5 MG TAB PO SCH (08:23)
[2019-08-17] MEDS: FUROSEMIDE 20 MG TAB PO SCH (08:24)
[2019-08-17] MEDS: VITAMIN B COMPLEX TAB PO SCH (08:24)
[2019-08-17] MEDS: ESCITALOPRAM OXALATE 10 MG TAB PO SCH (08:24)
[2019-08-17] MEDS: PANTOprazole 40 MG TAB PO SCH (08:24)
[2019-08-17] MEDS: LORATADINE 10 MG TAB PO SCH (08:24)
[2019-08-17] MEDS: FLUTICASONE PROPIONATE NA SPR 16 GM BTL NAE SCH (08:25)
[2019-08-17] MEDS: FOLIC ACID 400 MCG TAB PO SCH (08:25)
[2019-08-17] MEDS: LACTOBACILLUS ACIDOPHILUS (FLORANEX) TAB PO SCH ×2 (08:25→11:54)
[2019-08-17] MEDS: guaiFENesin 600 MG TABCR PO SCH (08:25)
[2019-08-17] MEDS: METOPROLOL SUCC 25MG EXT REL TAB PO SCH (08:25)
[2019-08-17] MEDS: ASPIRIN 81 MG ECTAB PO SCH (08:26)
[2019-08-17] MEDS: SODIUM CHLORIDE 0.65% NA SOLN 45 ML (OCEAN) SCH ×2 (08:27→11:54)
[2019-08-17] MEDS: BISACODYL 5 MG TABEC PO SCH (08:27)
--- NOTE | 2019-08-17 10:44 | Discharge Summary ---
Date of Service August 17, 2019 Admission HPI Per Admitting Provider This is an 89-year-old male with a history of CAD status post CABG x4 and PCI with drug-eluting stents to the RCA and the circumflex on 2 separate procedures. Also with hyperlipidemia, hypertension, chronic kidney disease with a baseline creatinine of 2-2.1. Patient presented to the weekend clinic last week and was seen on Thursday and given ceftriaxone IM. He then reported again on Thursday for worsening shortness of breath and cough and was given an additional injection of ceftriaxone IM and discharged on Cefzil for bronchitis versus pneumonia. The patient's was an inpatient for a week here at the hospital for pneumonia and was successfully treated with Levaquin. The patient is reside with her daughter Rylee Albarado. Patient is extremely hard of hearing so most of the history is provided by the cristina samson. The daughter reports that he has had a progressive cough throughout the week. Initially when the presented to the outpatient clinic his SaO2 was 90%. After treatment, the patient began to improve with his SaO2 which went as high as 94 at home. However, he continued to have increased cough with yellow/green sputum. The patient never had any chest pain or tightness. He did have some v omiting associated with increased sputum which he is unable to clear. On Thursday he had severe diarrhea. That then improved on and Thursday to be scant amounts of diarrhea. He then developed severe diarrhea again yesterday which was described by the daughter as "a blowout". This morning, the patient was extremely weak and went out to his chair and when he was getting in the chair he fell. The family reports they were able to get him into the chair but then he tried to get out himself and fell again. Admission Exam Per Admitting Provider GENERAL : No acute distress. Hard of hearing EYES: No icterus, gaze conjugate. Pupils equal round and reactive to light NOSE: No evidence of epistaxis. MOUTH: No lesions or candidiasis. Mucosa moist. Tongue midline. NECK: Supple. No JVD. No carotid bruits LUNGS: Bronchospasm on expiratory phase more pronounced to anterior zones. Decreased breath sounds at the left base. No specific rales or rhonchi appreciated HEART: Regular, rate controlled. No appreciation of murmurs gallops or rubs ABDOMEN: Soft, NT, ND, BS Present EXTREMITIES: No LE edema, pedal pulses intact. NEURO: A&OX3. No focal deficits on examination Principal Diagnosis Rectus sheath hematoma, Anemia, sinobronchitis, penile ecchymosis Discharge Exam Elderly obese male, sitting up in the chair, in no acute distress Constitutional well developed and well nourished; no acute distress Eyes PERRL, conjunctivae normal, anicteric sclerae ENMT external ear and nose normal, oropharynx normal Neck Supple, no JVD Respiratory normal respiratory effort; no respiratory distress and no labored breathing Auscultation: + rhonchi (mild, R>L); no wheezes Much improved air movement bilaterally Cardiovascular RRR, no murmur, no edema Rate/Rhythm: regular rate and regular rhythm Heart Sounds: + murmur (systolic III/, at RUSB) Chest (Breasts) Chest: normal inspection of chest Gastrointestinal (Abdomen) Inspection/Auscultation: normal bowel sounds and + abdominal wall ecchymosis; + abdomen abnormal to inspection (Ecchymosis spreading down to the groin area, both flanks L>R) and abdomen not distended Percussion/Palpation: abdomen soft; abdomen nontender Musculoskeletal Head/Neck/Chest: normocephalic, head atraumatic and neck supple Extremities: extremities normal to inspection Skin no rashes, warm and dry Neurologic PERRL, EOMI, accommodation nl, no face palsy, no dysarthria normal touch/pain/proprioception, CN's II-XI intact bilaterally and moves all extremities Cranial Nerves: normal facial strength and tongue midline; + hearing impairment Psychiatric Orientation: alert and oriented x 3 Affect: euthymic affect Genitourinary + penis abnormality (penile ecchymosis); no CVA tenderness Lymphatic no lymphedema and no cervical lymphadenopathy Discharge Data Allergies Allergy/AdvReac Type Severity Reaction Status Date / Time niacin Allergy Unknown UNKNOWN Verified 08/07/19 16:55 Consultations 08/07/19 16:53 ED Decision to Admit Stat 08/07/19 20:15 Consult Cardiology Routine 08/07/19 21:40 Consult Case Management - Discharge Planning Routine 08/09/19 16:02 Consult Nephrology Routine Consult Neurology Routine 08/12/19 14:08 Consult Urology Routine 08/15/19 07:[address] chest 08/15/19 reviewed along with Previous CT chest which also showed bilateral lower lobe atelectasis and minimal bronchiectasis lower lobe this likely seems to be from chronic aspiration. Patient already on PPI. Swallow evaluation shows some aspiration -continue pured diet per [employer] with supervision Recommend ambulating the patient Continue with attempts at incentive spirometry and flutter valve Patient should remain upright when possible Continue out of bed to chair and increase ambulation hallways as tolerated It is our opinion that the best thing for this patient will be discharge for further rehab and mobilization Ordered Studies 08/07/19 15:49 CT head/brain wo con Stat 08/07/19 15:52 CT abd pelvis wo con Stat IMPRESSION: 1. A large left rectus sheath hematoma as described above. 2. There is also small amount of hemorrhage extending into the extraperitoneal space within the lower anterior abdomen. 3. Additional findings as described above. 08/15/19 10:23 CT chest wo con Urgent IMPRESSION: 1. Lingular and bilateral lower lobe opacities consistent with atelectasis. No consolidation to suggest pneumonia. 2. Mild bilateral lower lobe bronchial wall thickening. 3. Trace right pleural effusion. 4. Mild nonspecific groundglass opacities. Hospital Course (1) Rectus sheath hematoma: Noted to have left rectus sheath hematoma on CAT scan measuring 8 x 4 cm s/p fall Has been on aspirin for CAD with EMILIA Hemoglobin remains essent.stable Doubt any increasing hematoma Showing the natural course of rectus sheath hematoma, ecchymosis visible below umbilicus and spreading down to pt's groin, L flank >R flank Hemoglobin is down to 8-9 from 10.6 on admission, likely dilut. from intravenous fluid Denies any more pain Will monitor CBC Penile ecchymosis Secondary to rectus sheath hematoma, spreading down the patient's groin Urology was consulted, recommend scrotal support, ice packs as needed Anemia - seems multifactorial, secondary to hematoma, CKD, iron deficiency - iron sat. 16% - pt received IV iron infusion this AM (08/17/2019), nephrology -Dr. Hooks, following (2) Bronchitis: He has been complaining of cough likely secondary to sinobronchitis as an outpatient He received 2 doses of IM ceftriaxone as an outpatient Noted to have acute sinusitis on CT scan of the head Bibasilar densities secondary to atelectasis/pneumonitis on admission Was started on IV Zosyn, switched to PO Augmentin on 08/11, and ISB,flutter valve, breathing treatments, guaifenesin Patient continues to be dyspneic with any mild ambulation, physical exam not much improved, obtained follow up chest x-ray (08/14) -x-ray showed progressive bibasilar atelectasis and patchy left basilar and right apical parenchymal infiltrative change, consulted pulmonology for their input Pulmonology obtained chest CT as chest x-ray was inadequate, only showed atelectasis mild bronchiectasis, no pneumoniarecommend to improve mobility and rehab, also recommended sleep study as outpatient once patient is discharged from the hospital, lastly commented on possible chronic aspiration therefore aspiration precautions should be implemented also when patient is no longer in the hospital (all these results were discussed with patient's daughter Rylee Albarado in detail) Procalcitonin (08/15) negative - d/c antibiotics Swallow eval. shows some aspiration - pt needs assistance, moist and minced diet Plan to DC to [facility] today, where he can continue rehabilitation and respiratory treatments Constipation - resolved Miralax ordered prn cont. dulcolax daily scheduled cont. probiotic, given pt is on Abx abdomen is soft, only mildly distended, but ecchymosis present from rectus m. sheath hematoma will cont. to monitor closely (3) Elevated troponin: Mild elevation of troponin Likely secondary to abnormal renal function and demand ischemia,doubt any ACS Appreciate cardiology input and recommendation Cardiac status remains stable (4) Acute renal failure superimposed on chronic kidney disease: Noted to have a creatinine of 2.78 on admission with increasing BUN Getting cautious amount intravenous fluid Creatinine has been improving, currently back to baseline Per outpt labs, Cr has been worsening recently Nephrology has been consulted for further recommendation (5) ASCVD (arteriosclerotic cardiovascular disease): Has history of CAD status post EMILIA placement Appreciate cardiology input and recommendation (6) Sinusitis: on Zosyn on admission (08/07) Switched to PO Augmentin on 08/11 (finished 10 day course, procalcitonin negative, d/c abx) Possible Parkinson disease/benign essential tremor Noted to have parkinsonian type movement in the ED Neurology evaluation as requested by the daughter, likely essential tremor, no new medications recommended, pt may follow up as outpt w/ neurology (7) DVT prophylaxis: SCDs for now No pharmacologic anticoagulation due to rectus sheath hematoma PT and OT evaluation for possible placement - accepted to [facility], plan to discharge patient back to [facility] today Discussed clinical status with daughters and pt's in detail Total Time Total Time Spent Total Time Spent (In Minutes): 45 min Total Time Includes: Examination of the Patient, Discharge Planning, Medication Reconciliation and Communication With Other Providers Discharge Plan Discharge Items Patient Disposition: Transfer Inpatient Rehab Fac Reason For Visit: FALL WITH RECTUS SHEATH HEMATOMA Discharge Diagnosis: Rectus sheath hematoma, Anemia, sinobronchitis, penile ecchymosis Activity: As commented below Activity Comment: per rehab - [facility] Non-emergency contact: Primary Care Provider Call non-emergency contact if: you have any medication questions and your symptoms worsen Follow-up/Referrals: July Collazo MD [Primary Care Provider] - Diet: Regular Addtl Attending Provider Instructions: Discharge to in. Rehab for further care and improvement of mobility Pending Studies at Discharge: No Stand-Alone Forms: My [facility] Skilled Items Patient informed of condition?: Yes DNR: Yes Discharge Level of Care: Acute rehab Communicable Disease: No Discharge Prognosis: Stable Lines: None Urinary Catheter: No Medications and DC Order Prescriptions: New polyethylene glycol 3350 [Miralax] 17 gram Powder In Packet 17 g PO DAILY PRN (Reason: constipation) 30 Days Qty: 30 RF: 0 bisacodyl 5 mg Tablet,Delayed Release (Dr/Ec) 5 mg PO DAILY 20 Days Qty: 20 RF: 0 Lactobacillus acidoph-L.bulgar [Floranex] 1 million cell Tablet 4 tab PO TIDM 20 Days Qty: 80 RF: 0 Continued atorvastatin [Lipitor] 80 mg tablet 80 mg PO QAM RF: 0 metoprolol succinate [Toprol XL] 50 mg tablet extended release 24 hr 50 mg PO QAM RF: 0 tramadol [Ultram] 50 mg tablet 50 mg PO TID PRN (Reason: KNEE PAIN) RF: 0 terazosin 2 mg capsule 2 mg PO QAM RF: 0 pantoprazole [Protonix] 40 mg tablet,delayed release (DR/EC) 40 mg PO BID RF: 0 budesonide [Pulmicort] 0.5 mg/2 mL suspension for nebulization 0.5 mg inhalation BID PRN (Reason: Shortness Of Breath Or Wheezing) RF: 0 allopurinol [Zyloprim] 300 mg tablet 300 mg PO QAM RF: 0 furosemide [Lasix] 20 mg tablet 20 mg PO QAM RF: 0 levalbuterol HCl [Xopenex] 1.25 mg/3 mL solution for nebulization 1.25 mg inhalation Q4H PRN (Reason: Wheezing) RF: 0 clobetasol [Cormax] 0.05 % solution 1 applic topical UD RF: 0 escitalopram oxalate [Lexapro] 10 mg tablet 5 mg PO QAM RF: 0 folic acid 400 mcg Tablet 400 mcg PO DAILY RF: 0 aspirin 81 mg Tablet,Delayed Release (Dr/Ec) 81 mg PO QAM RF: 0 acetaminophen [Tylenol Extra Strength] 500 mg Tablet 500 mg PO BIDM PRN (Reason: Pain) RF: 0 vitamin B complex [B-Complex] Tablet 1 tab PO DAILY RF: 0 fluticasone propionate 50 mcg/actuation [place],Suspension 2 spray INTRANASAL DAILY RF: 0 loratadine [Claritin] 10 mg Tablet 10 mg PO DAILY RF: 0 ranitidine HCl [Zantac] 150 mg tablet 150 mg PO BID RF: 0 Discontinued prednisone 5 mg tablet 5 mg PO QAM RF: 0 benzonatate [Tessalon Perles] 100 mg capsule 100 mg PO TID PRN (Reason: Cough) RF: 0 cefprozil 250 mg tablet 250 mg PO Q12H RF: 0 prednisone 10 mg Tablets,Dose Pack See Rx Instructions .ROUTE .COMPLEX RF: 0 Discharge Orders: Discharge Order (Routine); Ordered 08/17/19 Ordered By: Mehul Her Admission Data Admit Date/Time: 08/07/19 18:42 Attending Provider: Mehul Her Admit Provider: Eran Castillo Primary Care Provider: July Collazo Other Providers: [facility] ; Eran Castillo ; Milton Grewal ; Toya Hooks ; Monik Gonzalez ; Abhishek Koch ; Bradley Gabriel I. ; Dereck Mcdonald ; Edgar Pisano ; Stacy Hernandez ; Bobby Sher ; Isabelle Chiang ; Gaurav Christie ; Arron Ventura ; Aurea Nina ; Brad Hager ; Sugar Vazquez ; Ros Liu ; Jocelyne Gregg ; Alissa Kapoor ; Jono Mullins ; Jere Kirkland ; Rosendo Alex.
[2019-08-17 11:03] VITALS: BP 107/61
[2019-08-17 13:39] VITALS: PULSE 86
== END 2019-08-17 14:26 | DRG 202 ==
LOC: ED 15:10 → SUATTDRO 18:42 → 2E 18:42 → 4W 08-08 16:25